=== PATIENT | male | born 1950 | race Caucasian/White ===

== ENCOUNTER → 2021-01-24 | Outpatient (CLI) | payer MEDICARE | END | disposition home or self-care (01) | LOC: LABPAT 12:28 | PROVIDERS: ATTEND Orthopaedic Surgery | DX: Z01.812 Encounter for preprocedural laboratory examination (principal); M17.11 Unilateral primary osteoarthritis, right knee; Z22.322 Carrier or suspected carrier of Methicillin resistant Staphylococcus aureus | CPT/HCPCS: 87070 ==

== ENCOUNTER 2021-02-20 10:28 | Day surgery (SDC) | payer MEDICARE ==
[2021-02-17 08:57] VITALS: BMI 35.2
--- NOTE | 2021-02-19 12:13 | HP ---
HISTORY AND PHYSICAL REASON FOR ADMISSION: Surgery scheduled for 02/20/2021 HISTORY OF PRESENT ILLNESS: Reza Mehta is a 70-year-old gentleman seen with symptomatic right knee osteoarthritis, failing conservative treatment modalities. He elected to proceed with right total knee arthroplasty. Consent was obtained. Medical clearance provided by Dr. Schmitz. Cardiac clearance by Dr. Lopes. PAST MEDICAL HISTORY: Hypertension, hyperlipidemia, cardiovascular disease. PAST SURGICAL HISTORY: Noncontributory. MEDICATIONS: Atorvastatin, Lasix, losartan, Lovenox, metoprolol, Coumadin. ALLERGIES: NONE. SOCIAL HISTORY: Denies tobacco use. PHYSICAL EVALUATION OF THE RIGHT KNEE: Range of motion is -7/8-85 degrees. Tenderness along the medial and lateral joint lines. Crepitus medial patellofemoral compartments with range of motion. Pain with patellofemoral compression. Ligaments stable. Hip rotation without pain. Distal neurovascular exam is intact. RADIOGRAPHS: Radiographs of the right knee reveal severe osteoarthritic changes. IMPRESSION: 1. Right knee osteoarthritis. 2. Hypertension. 3. Hyperlipidemia. 4. Cardiovascular disease. PLAN: Right total knee arthroplasty. Surgery scheduled for 02/20/2021. MMODL / IJN: [id number] /
[~2021-02-20 10:28] MED LIST: ACETAMINOPHEN TAB 500 MG TAB PO PRN; MELOXICAM 7.5 MG TAB PO PRN; MIDAZOLAM 2 MG/2 ML VIAL IV PRN; TRANEXAMIC ACID 1,000 MG in SODIUM CHLORIDE 0.9% 100 ML IVPB PRN
[2021-02-20] MEDS: LACTATED RINGERS 1,000 ML IV SCH ×2 (11:24→12:51)
[2021-02-20] MEDS: ONDANSETRON 4 MG/2 ML VIAL IVP ONE ×2 (11:28→22:35)
[2021-02-20] MEDS: DEXAMETHASONE SOD PHOSPHATE 4 MG/ML 1 ML VIAL IV ONE ×2 (11:28→22:35)
[2021-02-20 11:35] LABS: Basophils % (A) 0 %; Eosinophils # (A) 0.1 k/uL (0-0.7); Eosinophils % (A) 1 %; HCT 32.8 % (39.0-53.0); HGB 11.1 gm/dL (13.0-17.5); Lymphocytes # (A) 1.4 k/uL (1.0-4.8); Lymphocytes % (A) 16 %; MCH 31.4 pg (25.0-35.0); MCHC 33.8 g/dL (31.0-37.0); MCV 92.9 fL (80.0-100.0); Mean Platelet Volume 7.4; Monocytes # (A) 0.6 k/uL (0-1.0); Monocytes % (A) 6 %; Neutrophils # (A) 6.5 k/uL (1.3-7.7); Neutrophils % (A) 75 %; Platelet Count 321 k/uL (150-450); RBC 3.53 m/uL (4.30-5.90); RDW 14.7 % (11.5-15.5); WBC 8.8 k/uL (3.8-10.6)
[2021-02-20 11:51] LABS: Prothrombin Time 10.5 sec (9.0-12.0)
[2021-02-20] MEDS ORDERED: MIDAZOLAM 2 MG/2 ML VIAL IVP ONE (12:06)
[2021-02-20] MEDS ORDERED: fentaNYL (PF) 50 MCG/ML 2 ML AMP ONE (12:50)
[2021-02-20] MEDS ORDERED: MIDAZOLAM 2 MG/2 ML VIAL ONE (12:50)
[2021-02-20] MEDS ORDERED: PROPOFOL 10 MG/ML 20 ML VIAL IV ONE (12:50)
[2021-02-20] MEDS ORDERED: DEXAMETHASONE SOD PHOSPHATE 4 MG/ML 1 ML VIAL ONE (12:50)
[2021-02-20] MEDS ORDERED: TRANEXAMIC ACID 1,000 MG/10 ML VIAL ONE (12:50)
[2021-02-20] MEDS ORDERED: KETAMINE 10 MG/ML 20 ML VIAL ONE (12:50)
[2021-02-20] MEDS ORDERED: ROPIVACAINE 5 MG/ML 30 ML VIAL ONE (12:50)
[2021-02-20] MEDS ORDERED: SODIUM CHLORIDE 0.9% 100 ML BAG ONE (12:50)
--- NOTE | 2021-02-20 12:51 | P.ANPRN ---
Procedure Note - Anesthesia - Nerve Block Performed Right Adductor Canal Infusion Time Out Performed: Yes Date of Procedure: 02/20/21 Procedure Start Time: 12:05 Procedure Stop Time: 12:18 Location of Patient: PreOp Indication: Acute Post-Operative Pain Sedation Type: Sedate with meaningful contact maintained Preparation: Sterile Prep, Sterile Dressing Position: Supine Catheter: Indwelling Needle Types: Pajunk Needle Gauge: 21 Ultrasound used to visualize needle placement: Yes Ultrasound used to observe medication spread: Yes Blood Aspirated: No Pain Paresthesia on Injection Noted: No Resistance on Injection: Normal Image Stored and Saved: Yes Events: Uneventful and Well Tolerated (ropi .5% 20cc)
--- NOTE | 2021-02-20 12:53 | P.ANPRN ---
Procedure Note - Anesthesia - Nerve Block Performed Right Mikeck Single Time Out Performed: Yes Date of Procedure: 02/20/21 Procedure Start Time: 12:19 Procedure Stop Time: 12:24 Location of Patient: PreOp Indication: Acute Post-Operative Pain, Requested by Surgeon Sedation Type: Sedate with meaningful contact maintained Preparation: Sterile Prep Position: Supine Needle Types: Pajunk Needle Gauge: 21 Ultrasound used to visualize needle placement: Yes Ultrasound used to observe medication spread: Yes Blood Aspirated: No Pain Paresthesia on Injection Noted: No Resistance on Injection: Normal Image Stored and Saved: Yes Events: Uneventful and Well Tolerated (ropi .5% 25cc plus dexamethASONE 4MG)
[2021-02-20] MEDS ORDERED: ceFAZolin 1,000 MG in SODIUM CHLORIDE 0.9% 1,000 ML IRRIGATION ONE (13:28)
[2021-02-20] MEDS ORDERED: LACTATED RINGERS 1,000 ML IV ONE ×2 (14:02→17:56)
[2021-02-20] MEDS ORDERED: traMADol 50 MG TAB PO PRN (14:45)
[2021-02-20] MEDS ORDERED: HYDROmorphone 0.5 MG/0.5 ML SYRINGE IVP PRN (14:45)
[2021-02-20] MEDS ORDERED: HYDROcodone/APAP 5-325MG 1 EACH TAB PO PRN (14:45)
[2021-02-20] MEDS ORDERED: HYDROmorphone 0.2 MG/1 ML SYRINGE IVP PRN (14:45)
[2021-02-20] MEDS ORDERED: HYDROmorphone 1 MG/ML 1 ML SYRINGE IVP PRN (14:45)
[2021-02-20] MEDS ORDERED: ONDANSETRON 4 MG/2 ML VIAL IVP PRN (14:45)
[2021-02-20] MEDS ORDERED: NALOXONE 0.4 MG/ML 1 ML VIAL IV PRN (14:45)
--- NOTE | 2021-02-20 14:45 | P.OP ---
Date of Procedure: 02/20/21 Preoperative Diagnosis: Right knee osteoarthritis Postoperative Diagnosis: Right knee osteoarthritis Procedure(s) Performed: Right total knee arthroplasty Implants: 1. Depuy attune size 9 cruciate retaining cemented femur 2. Depuy attune size 9 fixed bearing cemented tibial baseplate 3. Deuy attune size 9 fixed bearing cruciate retaining 8 millimeter polyethylene tibial insert 4. Depuy attune 41 mm all polyethylene cemented patella Anesthesia: regional (Adductor canal catheter, Ipack block), spinal Surgeon: Romulo Arora Gis Professor #1: Marcus King Estimated Blood Loss (ml): 45 Pathology: other (Bone) Condition: stable Disposition: PACU Indications for Procedure: 70-year-old patient seen with symptomatic right knee osteoarthritis. After treatment options were discussed, he elected to proceed with total knee ar throplasty. Operative Findings: See description of procedure Description of Procedure: Patient was taken to the operative suite after having an adductor canal catheter placed by the department of anesthesia as well as an ipack block for postoperative pain management Patient underwent a spinal anesthetic by the department of anesthesia. Patient was given preoperative IV intake antibiotics and TXA. A well-padded tourniquet was placed about the right lower extremity. The lower extremity was then prepped and draped in the normal sterile orthopedic fashion. The extremity was elevated, a tourniquet was insufflated to 300. A standard anterior incision was made sharply through skin. Dissection was taken down through the subcutaneous soft tissues down to the extensor mechanism. A medial arthrotomy was performed, patella was everted and knee was flexed. There was advanced osteoarthritis noted. I introduced my distal intramedullary fem oral drill. I then introduced the distal femoral cutting jig. Marcus GUZMAN secured the cutting jig with 2 pins. I held retractors in position while Marcus GUZMAN performed the distal femoral resection through the guide area we now removed her distal femoral cutting guide. We now placed our 4-in-1 femoral cutting block and positioned and it was secured with 2 pins by Marcus GUZMAN while I held the block in position. The distal femoral finishing was now completed. A proximal tibial cutting guide was positioned. I held the guide in the appropriate position with both hands well Marcus GUZMAN inserted stabilizing pins into the guide. Proximal tibial cut was made. We now placed a trial femoral component into position, along with an appropriate size tibial tray and insert. We now took the knee through range of motion and had full extension good flexion and good overall soft tissue balance noted. The patella was everted and stabilized with 2 towel clips held by Marcus GUZMAN while I performed a flush with patellar quad tendon utilizing a fresh sawblade. We templated the patella, appropriate drill holes were made. An appropriate trial patella was positioned, knee was taken through full range of motion with the patella tracking very nicely. The trial patella was removed. Drill holes were made through the femoral component. All trial components were removed after marking off the appropriate rotation of the tibia. Retractors were now positioned along the proximal tibia. An appropriate keel punch was made with the appropriate size tibial guide by myself while Marcus GUZMAN assisted by holding retractors. At this point appropriate size implants were chosen and opened. The joint was irrigated copiously with pulse lavage mechanical irrigation. The posterior capsule was infiltrated with local analgesic. The wound was irrigated with pulse lavage mechanical irrigation. We mixed antibiotic methylmethacrylate. We placed the knee into flexion. We placed mul tiple retractors assisted by Marcus GUZMAN to expose the proximal tibia. Once the methyl methacrylate was ready, the tibial component was cemented into place removing any excess methylmethacrylate form by both myself and Marcus GUZMAN. The femoral component was cemented into place removing the removing any excess methylmethacrylate performed by both myself and Marcus GUZMAN. We then inserted the appropriate size polyethylene tibial insert. We made sure that it was locked into position. We took the knee into full extension, and then back in a flexion making sure we had removed any excess methylmethacrylate. The patellar component was then cemented down and secured with clamp. Excess methylmethacrylate removed. We kept the knee in full extension, patellar clamp in position until methylmethacrylate had hardened. Once it had hardened the patellar clamp was removed. The knee was taken through full range of motion. The patella tracked nicely. There was good soft tissue balancing. The tourniquet was now released. Additional hemostasis was achieved via electrocautery. A second gram of TXA was given. The wound again was irrigated with pulse lavage mechanical irrigation. The superficial soft tissues were infiltrated local analgesic. The extensor mechanism was repaired with Vicryl. We checked the repair with range of motion and it was stable. The subcutaneous soft tissues were repaired with Vicryl in layers. The skin was approximated with pernio/Dermabond. Sterile dressings were applied followed by loose web roll and Mikael bandage. The patient was transferred to a bed, and taken to recovery in stable and satisfactory condition. Marcus GUZMAN assisted with this complex procedure.
[2021-02-20] MEDS ORDERED: ROPIVACAINE 0.2%-NS ON-Q PUMP 2 MG/ML EACH MISCELLANE ONE (15:30)
--- NOTE | 2021-02-20 15:35 | XR ---
EXAMINATION TYPE: XR knee limited RT DATE OF EXAM: 02/20/2021 COMPARISON: None HISTORY: Postop alignment TECHNIQUE: 2 view right knee FINDINGS: Tibial and femoral components of an place. Soft tissue postsurgical changes are evident. No acute fractures or dislocations are evident. IMPRESSION: 1. No acute fractures post knee replacement
[2021-02-20] MEDS ORDERED: KETOROLAC 15 MG/ML 1 ML VIAL ONE (16:07)
[2021-02-20] MEDS ORDERED: KETOROLAC 15 MG/ML 1 ML VIAL IVP ONE ×2 (16:12)
[2021-02-20] MEDS: HYDROmorphone 0.5 MG/0.5 ML SYRINGE IVP PRN ×3 (16:15→18:15)
[2021-02-20] MEDS ORDERED: ROPIVACAINE 0.2%-NS ON-Q PUMP 1,090 MG, EMPTY PAIN BALL 1 EACH MISCELLANE PRN (17:24)
[2021-02-20] MEDS ORDERED: SODIUM CHLORIDE 0.9% 1,000 ML IV ONE (17:56)
[2021-02-20] MEDS ORDERED: WARFARIN 7.5 MG TAB PO ONE (21:00)
[2021-02-20] MEDS ORDERED: SENNOSIDES-DOCUSATE SODIUM 1 EACH TAB PO SCH (21:00)
[2021-02-20] MEDS ORDERED: ATORVASTATIN 40 MG TAB PO SCH (21:30)
[2021-02-20] MEDS: FLUTICASONE 50MCG/SPRAY NASAL 16GM EA NOSTRIL SCH (22:45)
[2021-02-21] MEDS: HYDROcodone/APAP 7.5-325MG 1 EACH TAB PO PRN ×3 (00:28→13:04)
[2021-02-21 01:52] VITALS: RESP 16
--- NOTE | 2021-02-21 02:59 | P.CONS ---
History of Present Illness - Reason for Consult Consult date: 02/20/21 Medical evaluation Requesting physician: Romulo Arora - Chief Complaint Right total knee arthroplasty - History of Present Illness 70-year-old male with hypertension, hyperlipidemia, valvular heart disease Patient comes in for scheduled right total knee arthroplasty tolerated procedure well patient seen in the immediate postoperative period he denies any chest pain trouble breathing, he tolerated procedure well, he tolerated by mouth intake denies any nausea vomiting. Pain is well controlled Review of Systems Pertinent positives as noted in HPI. 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 COLONOSCOPY Past Anesthesia/Blood Transfusion Reactions: No Reported Reaction Smoking Status: Former smoker - Past Family History Mother History Unknown: Yes Additional Family Medical History / Comment(s): MOM'S HX UNKNOWN Medications and Allergies Home Medications Medication Instructions Recorded Confirmed Type Atorvastatin [Lipitor] 40 mg PO HS 02/17/21 02/20/21 History Fexofenadine HCl 180 mg PO DAILY 02/17/21 02/20/21 History Fluticasone Nasal [place] [Flonase 2 spray EA NOSTRIL DAILY 02/17/21 02/20/21 History Nasal [place]] Furosemide [Lasix] 20 mg PO DAILY 02/17/21 02/20/21 History Losartan [Cozaar] 25 mg PO DAILY 02/17/21 02/20/21 History Metoprolol Succinate (ER) [Toprol 25 mg PO DAILY 02/17/21 02/20/21 History Xl] Warfarin [Coumadin] 5 mg PO SUTUWETHSA 02/17/21 02/20/21 History Warfarin [Coumadin] 7.5 mg PO MOFR 02/17/21 02/20/21 History Allergies Allergy/AdvReac Type Severity Reaction Status Date / Time No Known Allergies Allergy Verified 02/20/21 11:02 Physical Exam Vitals: Vital Signs Temp Pulse Resp BP Pulse Ox 02/20/21 19:10 98.3 F 78 16 112/53 97 02/20/21 18:20 78 16 109/52 95 02/20/21 17:51 83 16 116/62 96 02/20/21 17:15 65 16 126/72 97 02/20/21 16:45 67 16 126/60 85 L 02/20/21 16:15 64 17 127/59 97 02/20/21 16:00 60 16 117/56 97 02/20/21 15:45 60 16 115/59 96 02/20/21 15:30 59 L 18 116/59 95 02/20/21 15:15 62 16 119/56 97 02/20/21 15:00 98.3 F 66 16 114/55 99 02/20/21 12:30 83 18 126/61 96 02/20/21 11:18 97.8 F 87 18 156/68 96 Intake and Output 02/20/21 02/20/21 02/20/21 06:59 14:59 22:59 Intake Total 1651 400 Output Total 45 Balance 1606 400 Intake: IV 1651 400 Output: Estimated Blood Loss 45 Other: Weight 115.1 kg 115.1 kg Constitutional: No acute distress, conversant, pleasant Eyes: Anicteric sclerae, moist conjunctiva, Pupils equal round reactive to light ENMT: NC/AT Oropharynx clear, no erythema, or exudates Neck: Supple, FROM, no masses, or JVD No carotid bruits No thyromegaly Lungs: Clear to auscultation Clear to percussion Normal respiratory effort, no accessory muscle use Cardiovascular: Heart regular in rate and rhythm, Systolic murmurs, no gallops, or rubs No peripheral edema Abdominal: Soft Nontender, no guarding, rebound or rigidity Abdomen moving with respiration Normoactive bowel sounds No hepatomegaly, No splenomegaly No palpable mass No abdominal wall hernia noted Skin: Normal temperature, tone, texture, turgor No induration No subcutaneous nodules No rash, lesions No ulcers Extremities: No digital cyanosis No clubbing Pedal pulses intact and symmetrical Radial pulses intact and symmetrical No calf tenderness Psychiatric: Alert and oriented to person, place and time Appropriate affect fair judgement Neuro Muscles Strength 5/5 in bilateral upper extremities and bilateral lower extremities except for limited exam over the hip and knee over the right lower extremity due to recent surgery Sensation to light touch grossly present throughout Cranial nerves II-XII grossly intact No focal sensory deficits Lymphatics: no palpable cervical or supraclavicular , or inguinal lymph nodes Results CBC & Chem 7: 02/20/21 11:24 Labs: Abnormal Lab Results - Last 24 Hours (Table) 02/20/21 Range/Units 11:24 RBC 3.53 L (4.30-5.90) m/uL Hgb 11.1 L (13.0-17.5) gm/dL Hct 32.8 L (39.0-53.0) % Assessment and Plan Assessment: Right total knee arthroplasty postoperative day 0 DVT prophylaxis and pain control per orthopedic Hypertension resume losartan and metoprolol Valvular heart disease Patient had cardiac clearance prior surgery Continue to follow up outpatient with cardiology Follow-up CBC and BMP in the morning Patient is full code Monitor vital signs Thank you for allowing us to participate in the care of this patient. Do not hesitate to contact us with questions. Someone can be reached from the [facility] hospitalist group at all hours of the day at [phone].
[2021-02-21] MEDS: LACTATED RINGERS 1,000 ML IV SCH ×3 (05:02→12:03)
[2021-02-21 06:44] LABS: INR 1.1 (<1.2); Prothrombin Time 11.6 sec (9.0-12.0)
--- NOTE | 2021-02-21 06:54 | P.PN ---
Progress Note - Text Progress Note Date: 02/21/21 Postoperative day # 1 status post total knee arthroplasty, and adductor canal catheter placed for postoperative analgesia, currently at ropivacaine 0.2% 8 mL per hour and continuous infusion, visual analogue scale is 4/10, patient using oral pain medication for breakthrough pain. Assessment and plan= Acute postoperative pain, adductor canal catheter for pain control, pain is well controlled we'll continue the same management.
[2021-02-21 07:20] LABS: African American GFR (CKD) >90 (>60 ml/min/1.73 sqM); Anion Gap 4 mmol/L; Blood Urea Nitrogen 18 mg/dL (9-20); Calcium 8.5 mg/dL (8.4-10.2); Carbon Dioxide 26 mmol/L (22-30); Chloride 104 mmol/L (98-107); Glucose 117 mg/dL (74-99); Non-African American GFR(CKD) 83 (>60 ml/min/1.73 sqM); Potassium 4.3 mmol/L (3.5-5.1); Sodium 134 mmol/L (137-145)
[2021-02-21 07:43] LABS: Basophils % (A) 0 %; Eosinophils % (A) 0 %; HCT 29.2 % (39.0-53.0); HGB 9.7 gm/dL (13.0-17.5); Lymphocytes # (A) 1.2 k/uL (1.0-4.8); Lymphocytes % (A) 9 %; MCH 31.2 pg (25.0-35.0); MCHC 33.3 g/dL (31.0-37.0); MCV 93.8 fL (80.0-100.0); Monocytes # (A) 1.1 k/uL (0-1.0); Monocytes % (A) 8 %; Neutrophils % (A) 82 %; Platelet Count 298 k/uL (150-450); RBC 3.11 m/uL (4.30-5.90); RDW 15.2 % (11.5-15.5); WBC 13.5 k/uL (3.8-10.6)
[2021-02-21 08:56] VITALS: PULSE 75; TEMP 98.3
[2021-02-21] MEDS ORDERED: LOSARTAN 25 MG TAB PO SCH (09:00)
[2021-02-21] MEDS ORDERED: FUROSEMIDE 20 MG TAB PO SCH (09:00)
[2021-02-21] MEDS ORDERED: ENOXAPARIN 30 MG/0.3 ML SYRINGE SQ SCH (09:00)
[2021-02-21] MEDS ORDERED: METOPROLOL SUCCINATE (ER) 25 MG TAB.ER.24H PO SCH (09:00)
[2021-02-21] MEDS ORDERED: LORATADINE 10 MG TAB PO SCH (09:00)
[2021-02-21] MEDS: FLUTICASONE 50MCG/SPRAY NASAL 16GM EA NOSTRIL SCH (10:11)
--- NOTE | 2021-02-21 10:18 | P.PN ---
<Nixon Cunningham - Last Filed: 02/21/21 16:45> Subjective Progress Note Date: 02/21/21 Hospital course: Patient is a 70-year-old male with a past medical history of hypertension, hyperlipidemia, valvular heart disease, previous CVA, bilateral cataracts resulting in lens implants, and osteoarthritis. Patient currently admitted under orthopedic surgery team with Dr. Arora status post total right knee arthroplasty.. We have been consulted for continued medical management throughout patient's hospitalization. Physical exam: Patient was seen and fully evaluated at bedside this morning. Patient was sitting up in chair and reports ambulating in room without any difficulties. Patient tolerating oral intake and denies having any postoperative nausea or vomiting. Patient reports postoperative pain is controlled and denies having any further needs at this time. Vital signs reviewed and stable. General: Nontoxic, no distress and appears stated age. Derm: Skin warm and dry, normal coloration for ethnicity. Dressing in place to right knee, it is clean dry and intact with no signs of bleeding or drainage. Head: Atraumatic, normocephalic and symmetric. Eyes: EOMs intact, no lid lag, and anicteric sclera Mouth: no lip lesions, mucus membranes moist Cardiovascular: regular rate and rhythm with normal S1S2, grade 3 systolic murmur, positive posterior tibial pulses bilaterally, and cap refill < 2 seconds. Lungs: Respirations even, regular, and unlabored on room air. Lungs CTA ryan aterally, no rhonchi, no rales, no wheezing, and no accessory muscle usage. Abdominal: soft, nontender to palpation, no guarding, no appreciable organomegaly Ext: ROM intact. No gross muscle atrophy, no edema, no contractures Neuro: Speech clear, face symmetrical and CN II-XII grossly intact with no noted focal neuro deficits Psych: Alert and oriented to person, place, time, and situation. Appropriate and pleasant affect. Assessment and Plan of Care: Status post total right knee arthroplasty postoperative day one Pain management, DVT prophylaxis, pain control, weightbearing, PT/OT per qing garcia admitting orthopedic surgery team. DVT prophylaxis to resume Coumadin Hypertension Monitor vital signs and continue daily medication regimen with metoprolol and losartan Hyperlipidemia Continue daily medication regimen with atorvastatin 40 mg nightly Acute anemia secondary to expected postoperative blood loss Stable with hemoglobin of 9.7. Thank you for allowing us to participate in the care of this pleasant patient. Do not hesitate to contact us with questions. Someone can be reached from the [facility] hospitalist group all hours of the day at [phone] or via perfect serve. Objective - Vital Signs Vital signs: Vital Signs Temp 98.3 F 02/21/21 08:00 Pulse 75 02/21/21 08:00 Resp 16 02/21/21 08:00 BP 123/64 02/21/21 08:00 Pulse Ox 97 02/21/21 08:00 Intake & Output 02/20/21 02/21/21 02/21/21 18:59 06:59 18:59 Intake Total 2050 Output Total 45 Balance 2005 Weight 115.1 kg 115.1 kg Intake: IV 2050 Output: Estimated Blood Loss 45 Other: Voiding Method Toilet Toilet # Voids 2 - Labs CBC & Chem 7: 02/21/21 05:47 02/21/21 05:47 Labs: Abnormal Lab Results - Last 24 Hours (Table) 02/20/21 02/21/21 02/21/21 Range/Units 11:24 05:47 05:47 WBC 13.5 H (3.8-10.6) k/uL RBC 3.53 L 3.11 L (4.30-5.90) m/uL Hgb 11.1 L 9.7 L (13.0-17.5) gm/dL Hct 32.8 L 29.2 L (39.0-53.0) % Neutrophils # 11.0 H (1.3-7.7) k/uL Monocytes # 1.1 H (0-1.0) k/uL Sodium 134 L (137-145) mmol/L Glucose 117 H (74-99) mg/dL <Sonam Rocha - Last Filed: 02/21/21 18:38> Subjective I reviewed the documentation as provided by the HIWOT above, who is the original author of this note. I agree with the documented assessment and plan, with the following changes: None Objective - Vital Signs Vital signs: Vital Signs Temp 98.3 F 02/21/21 08:00 Pulse 75 02/21/21 08:00 Resp 16 02/21/21 08:00 BP 104/61 02/21/21 12:03 Pulse Ox 97 02/21/21 08:00 Intake & Output 02/20/21 02/21/21 02/21/21 18:59 06:59 18:59 Intake Total 2050 Output Total 45 Balance 2005 Weight 115.1 kg 115.1 kg Intake: IV 2050 Output: Estimated Blood Loss 45 Other: Voiding Method Toilet Toilet # Voids 2 - Labs CBC & Chem 7: 02/21/21 05:47 02/21/21 05:47 Labs: Abnormal Lab Results - Last 24 Hours (Table) 02/21/21 02/21/21 Range/Units 05:47 05:47 WBC 13.5 H (3.8-10.6) k/uL RBC 3.11 L (4.30-5.90) m/uL Hgb 9.7 L (13.0-17.5) gm/dL Hct 29.2 L (39.0-53.0) % Neutrophils # 11.0 H (1.3-7.7) k/uL Monocytes # 1.1 H (0-1.0) k/uL Sodium 134 L (137-145) mmol/L Glucose 117 H (74-99) mg/dL
--- NOTE | 2021-02-21 10:59 | P.PN ---
Subjective Progress Note Date: 02/21/21 Principal diagnosis: Status post right total knee arthroplasty Patient is doing very well, his pain is well-controlled. Patient is doing very well with physical therapy, he is continuing to improve. Patient currently denies any headaches, lightheadedness, chest pain or shortness of breath. Objective - Vital Signs Vital signs: Vital Signs Temp 98.3 F 02/21/21 08:00 Pulse 75 02/21/21 08:00 Resp 16 02/21/21 08:00 BP 123/64 02/21/21 08:00 Pulse Ox 97 02/21/21 08:00 Intake & Output 02/20/21 02/21/21 02/21/21 18:59 06:59 18:59 Intake Total 2050 Output Total 45 Balance 2005 Weight 115.1 kg 115.1 kg Intake: IV 2050 Output: Estimated Blood Loss 45 Other: Voiding Method Toilet Toilet # Voids 2 - Exam Right lower extremity: Incision is clean, dry, and intact. The exofin fusion tape is in good condition. There is minimal soft tissue swelling and ecchymosis surrounding the medial and lateral aspects of the incision. Calf is soft, no tenderness with palpation. Plantar flexion, dorsiflexion, EHL, FHL are intact. Sensory exam to light touch throughout the extremity is intact, dorsal pedis pulses 2+. - Labs CBC & Chem 7: 02/21/21 05:47 02/21/21 05:47 Labs: Abnormal Lab Results - Last 24 Hours (Table) 02/20/21 02/21/21 02/21/21 Range/Units 11:24 05:47 05:47 WBC 13.5 H (3.8-10.6) k/uL RBC 3.53 L 3.11 L (4.30-5.90) m/uL Hgb 11.1 L 9.7 L (13.0-17.5) gm/dL Hct 32.8 L 29.2 L (39.0-53.0) % Neutrophils # 11.0 H (1.3-7.7) k/uL Monocytes # 1.1 H (0-1.0) k/uL Sodium 134 L (137-145) mmol/L Glucose 117 H (74-99) mg/dL Assessment and Plan Assessment: Postoperative day #1 status post right total knee arthroplasty Plan: Pain control, plan for discharge home on [place] and a tapering dose of Lyrica GI and DVT prophylaxis, he will resume is normally prescribed Coumadin, Lovenox also be used to bridge. Patient does take his own INR is at home, I advised that he do this on Saturday. He may discontinue the Lovenox when the INR is between 23. Wound care instructions were discussed, this to include showering instructions Icing and elevating techniques discuss Encourage incentive spirometer Medical recommendations Discharge planning: Patient will be discharged home today Time with Patient: Less than 30
--- NOTE | 2021-02-21 11:05 | P.DS ---
Providers Date of admission: 02/20/2021 Expected date of discharge: 02/21/21 Attending physician: Romulo Arora Consults: 02/20/21 14:45 Consult Physician Routine Consulting Provider: Patrizia Verma Consult Reason/Comments: Medical management Do you want consulting provider notified?: Yes Primary care physician: Zoraida Schmitz [facility] Course: Date of admission: 02/20/2021 Date of discharge: 02/21/2021 Admission diagnosis: Status post right total knee arthroplasty Discharge diagnosis: Same Attending physician: Dr. Arora Surgical procedures: Right total knee arthroplasty Brief history: Patient is a 70-year-old male with a history of progressive primary right knee osteoarthritis. At this point patient has failed conservative treatment measures and has opted to proceed with a elective right total knee arthroplasty. Hospital course: Details of patient's surgery can be found in operative report. Patient tolerated the procedure well and was subsequently transported to orthopedic floor. Patient's orthopeidc and medical care was provided daily. Patient had daily laboratory tests performed for evaluation of overall blood counts. Patient had daily physical therapy to include strengthening range of motion as well as education with walker ambulation. Patient was treated with Lovenox for their postoperative DVT prophylaxis during their inpatient stay. Patient was noted to have a relatively uneventful postoperative course. Patient reported satisfactory pain control with oral pain medications by postoperative day 0. Patient showed satisfactory progress with physical therapy. Patient moved steadily through the program and had no difficulty meeting the goals by postoperative day 1. Given patient's otherwise satisfactory course and having met physical therapy goals, plan is to discharge patient home on postoperative day 1. Discharge condition/disposition: Patient will be discharged home in stable condition. Discharge medications: Instructions are given on resumption of patient's normal daily medications per primary care recommendation, in addition patient will be prescribed [place] 7.5 mg/325 mg, Lyrica 75 mg, Colace 100 mg, Lovenox 30 mg Discharge instructions: 1. Wound care and infection precautions, keep incision dry and covered while showering, no lotions, creams, moisturizers. No soaking, tubs, pools, hottubs. Do not scrub over the incision. 2. Weight-bear as tolerated with walker / cane until follow-up. 3. Ice and elevate when necessary. Do not exceed 20 minutes per hour with ice pack. 4. Utilize compression sleeve until seen at first follow up appointment. 5. Visiting nursing care. 6. Home physical therapy including home CPM. 7. Pain meds and anticoagulants per prescription. 8. Pain medication has potential to cause constipation. Increase oral fluid and fiber intake. Contact primary care provider if you have not had a bowel movement within 48 hours after discharge 9. No anti-inflammatory medication until discussed at first post operative visit, this including Motrin, Aleve, Mobic, Diclofenac, [Aspirin]. 10. Follow up in office at 2 weeks postop with Greg Zepeda PA-C/Marcus Ramirez 11. Follow up with your primary care doctor 7-10 days after discharge. 12. Contact [facility] with any questions, . Procedures: Right total knee arthroplasty Patient Condition at Discharge: Good Plan - Discharge Summary Discharge Rx Participant: No New Discharge Prescriptions: New Docusate [Colace] 100 mg PO DAILY #30 cap Enoxaparin [Lovenox] 30 mg SQ DAILY #7 each HYDROcodone/APAP 7.5-325MG [[place] 7.5] 1 each PO Q6HR PRN #28 tab PRN Reason: Pain Pregabalin [Lyrica] 75 mg PO BID 14 Days #21 cap Continue Furosemide [Lasix] 20 mg PO DAILY Metoprolol Succinate (ER) [Toprol XL] 25 mg PO DAILY Warfarin [Coumadin] 7.5 mg PO MOFR Warfarin [Coumadin] 5 mg PO SUTUWETHSA Fluticasone Nasal [place] [Flonase Nasal [place]] 2 spray EA NOSTRIL DAILY Losartan [Cozaar] 25 mg PO DAILY Atorvastatin [Lipitor] 40 mg PO HS Fexofenadine HCl 180 mg PO DAILY Discharge Medication List Atorvastatin [Lipitor] 40 mg PO HS 02/17/21 [History] Fexofenadine HCl 180 mg PO DAILY 02/17/21 [History] Fluticasone Nasal [place] [Flonase Nasal [place]] 2 spray EA NOSTRIL DAILY 02/17/21 [History] Furosemide [Lasix] 20 mg PO DAILY 02/17/21 [History] Losartan [Cozaar] 25 mg PO DAILY 02/17/21 [History] Metoprolol Succinate (ER) [Toprol XL] 25 mg PO DAILY 02/17/21 [History] Warfarin [Coumadin] 5 mg PO SUTUWETHSA 02/17/21 [History] Warfarin [Coumadin] 7.5 mg PO MOFR 02/17/21 [History] Docusate [Colace] 100 mg PO DAILY #30 cap 02/21/21 [Rx] Enoxaparin [Lovenox] 30 mg SQ DAILY #7 each 02/21/21 [Rx] HYDROcodone/APAP 7.5-325MG [[place] 7.5] 1 each PO Q6HR PRN #28 tab 02/21/21 [Rx] Pregabalin [Lyrica] 75 mg PO BID 14 Days #21 cap 02/21/21 [Rx] Follow up Appointment(s)/Referral(s): [facility],Equipment [NON-STAFF] - (*Please call [facility] once home to arrange delivery of your Continuous Passive Motion (CPM) machine. ) Zachary Zepeda, PAC [PHYSICIAN KILN PUSHER] - 03/10/21 8:20 am Care,[facility] [NON-STAFF] - ([facility] Care will you to schedule your first visit for 02/22/21.) Zoraida Schmitz MD [Primary Care Provider] - 03/22/21 10:40 am Patient Instructions/Handouts: *Surgery [facility] - On-Q Pain Pump Discharge Instructions, How to Use an Incentive Spirometer (DC), Joint Replacement Surgery (DC) Activity/Diet/Wound Care/Special Instructions: Orthopedic Discharge Instructions: 1. Wound care and infection precautions, keep incision dry and covered while showering, no lotions, creams, moisturizers. No soaking, pools, hot tubs. Do not scrub over incision. 2. Weight-bear as tolerated with walker / cane until follow-up. 3. Ice and elevate when necessary. Do not exceed 20 minutes per hour with ice pack. 4. Utilize compression sleeve until seen at first follow up appointment. 5. Pain meds and anticoagulants per prescription. 6. Pain medication has potential to cause constipation. Increase oral fluid and fiber intake. Contact primary care provider if you have not had a bowel movement within 48 hours after discharge. 7. No anti-inflammatory medication until discussed at first post operative visit, this including Motrin, Aleve, Mobic, Diclofenac. 8. Follow up in office at 2 weeks postop with Greg Zepeda PA-C/Marcus King PA-C 9. Follow up with your primary care doctor 7-10 days after discharge. 10. Contact [facility] with any questions, . Wound care instructions: 1. Okay to remove foam dressing on 02/27/2021 2. Keep incision covered and dry while showering 3. Weight to shower until pain catheter is removed on 02/23/2021 DVT prophylaxis: 1. Utilize Lovenox and regular scheduled Coumadin until INR is between 23 2. Check INR on 02/24/2021 Discharge Disposition: HOME WITH HOME HEALTH SERVICES
[2021-02-21 12:04] VITALS: BP 104/61
[2021-02-21] MEDS ORDERED: WARFARIN 7.5 MG TAB PO ONE (18:00)
== END 2021-02-21 13:12 | disposition home health service (06) ==
LOC: OR 10:28 → 4SSUR 14:31 → OR 02-21 13:12
PROVIDERS: ATTEND Orthopaedic Surgery
DX: M17.11 Unilateral primary osteoarthritis, right knee (principal); I10 Essential (primary) hypertension; E78.5 Hyperlipidemia, unspecified; I69.398 Other sequelae of cerebral infarction; I48.0 Paroxysmal atrial fibrillation; I25.10 Atherosclerotic heart disease of native coronary artery without angina pectoris; Z20.822 Contact with and (suspected) exposure to COVID-19; R01.1 Cardiac murmur, unspecified; I35.1 Nonrheumatic aortic (valve) insufficiency; Z87.891 Personal history of nicotine dependence; Z98.890 Other specified postprocedural states; Z98.42 Cataract extraction status, left eye; Z98.41 Cataract extraction status, right eye; Z96.1 Presence of intraocular lens; Z79.01 Long term (current) use of anticoagulants; Z79.02 Long term (current) use of antithrombotics/antiplatelets; Z79.899 Other long term (current) drug therapy
CPT/HCPCS: 97161; 64999; 64448; 76942; 80048; 85025 ×2; 85610 ×2; 85730; 88300; 87635; 73560; 27447; C1776; C1713 ×2; J2250; J1100; J0690 ×3; J2405; J3010; J1650; J2795 ×2; J1885; J2704; J1170

== ENCOUNTER → 2021-02-22 | Outpatient (CLI) | payer MEDICARE ==
--- NOTE | 2021-02-22 16:12 | US ---
EXAMINATION TYPE: US venous doppler duplex LE RT DATE OF EXAM: 02/22/2021 4:01 PM COMPARISON: NONE CLINICAL HISTORY: R22.41 swelling right lower limb,M79.661 Pain in right lower. Pain & swelling right leg s/p right total knee 2 days ago SIDE PERFORMED: Right TECHNIQUE: The lower extremity deep venous system is examined utilizing real time linear array sonog nellie with graded compression, doppler sonography and color-flow sonography. VESSELS IMAGED: Common Femoral Vein Deep Femoral Vein Greater Saphenous Vein * Femoral Vein Popliteal Vein Small Saphenous Vein * Proximal Calf Veins (* superficial vessels) There is normal flow, compressibility, vascular waveforms. Right Leg: Negative for DVT, edema visualized Results called to Mckayla at 's office at time of exam IMPRESSION: No evident deep venous thrombosis at the level of the knee or central to the knee within the right lower extremity
== END | disposition home or self-care (01) ==
LOC: RADUSWWP 15:46
PROVIDERS: ATTEND Orthopaedic Surgery
DX: R22.41 Localized swelling, mass and lump, right lower limb (principal); M79.661 Pain in right lower leg

== ENCOUNTER 2021-02-24 08:06 | Emergency (ER) | payer MEDICARE ==
[2021-02-24 08:14] VITALS: BP 127/68; PULSE 91; RESP 18; TEMP 99.3
--- NOTE | 2021-02-24 08:45 | ED ---
Skin/Abscess/FB HPI - General Chief complaint: Skin/Abscess/Foreign Body Stated complaint: post op-blisters on leg Time Seen by Provider: 02/24/21 08:16 Source: patient, RN notes reviewed Mode of arrival: wheelchair Limitations: no limitations - History of Present Illness Initial comments: Patient is 70-year-old male presenting to ED for right leg pain. patient states he had right knee replacement surgery on the . Patient expresses discomfort and swelling in the leg is concerned about bulba on lateral and medial surface of leg. Patient states they were seen by ortho on Saturday but both "PA and the " and was sent to ED for ultrasound Doppler to check for clots, reported to have been negative. Patient states pain is 7 out of 10 pain which is normal pain for that affected leg. - Related Data Home Medications Medication Instructions Recorded Confirmed Atorvastatin [Lipitor] 40 mg PO HS 02/17/21 02/20/21 Fexofenadine HCl 180 mg PO DAILY 02/17/21 02/20/21 Fluticasone Nasal [place] [Flonase 2 spray EA NOSTRIL DAILY 02/17/21 02/20/21 Nasal [place]] Furosemide [Lasix] 20 mg PO DAILY 02/17/21 02/20/21 Losartan [Cozaar] 25 mg PO DAILY 02/17/21 02/20/21 Metoprolol Succinate (ER) [Toprol 25 mg PO DAILY 02/17/21 02/20/21 XL] Warfarin [Coumadin] 5 mg PO SUTUWETHSA 02/17/21 02/20/21 Warfarin [Coumadin] 7.5 mg PO MOFR 02/17/21 02/20/21 Previous Rx's Medication Instructions Recorded Docusate [Colace] 100 mg PO DAILY #30 cap 02/21/21 Enoxaparin [Lovenox] 30 mg SQ DAILY #7 each 02/21/21 HYDROcodone/APAP 7.5-325MG [[place] 1 each PO Q6HR PRN #28 tab 02/21/21 7.5] Pregabalin [Lyrica] 75 mg PO BID 14 Days #21 cap 02/21/21 Benzonatate [Tessalon Perles] 200 mg PO Q8HR #30 cap 02/24/21 Cephalexin [Keflex] 500 mg PO Q6HR #40 cap 02/24/21 Allergies Allergy/AdvReac Type Severity Reaction Status Date / Time No Known Allergies Allergy Verified 02/20/21 11:02 Review of Systems ROS Statement: Those systems with pertinent positive or pertinent negative responses have been documented in the HPI. ROS Other: All systems not noted in ROS Statement are negative. 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 COLONOSCOPY Smoking Status: Former smoker Past Alcohol Use History: None Reported Past Drug Use History: None Reported General Exam Limitations: no limitations General appearance: alert, in no apparent distress Respiratory exam: Present: normal lung sounds bilaterally. Absent: respiratory distress, wheezes, rales, rhonchi, stridor Cardiovascular Exam: Present: regular rate, normal rhythm, normal heart sounds. Absent: systolic murmur, diastolic murmur, rubs, gallop, clicks Right Hip exam: Present: normal inspection Upper Leg exam: Present: tenderness, swelling, erythema Knee exam: Present: tenderness (post knee replacement), swelling, erythema Lower Leg exam: Present: tenderness, swelling (bulba on medial and lateral aspect of knee/lowe leg), ecchymosis, erythema Ankle exam: Present: swelling, erythema Foot/Toe exam: Present: normal inspection Neurovascular tendon exam: Present: no vascular compromise Neurological exam: Present: alert, oriented X3 Skin exam: Present: warm, dry, intact, normal color. Absent: rash Course Vital Signs 02/24/21 08:09 Temperature 99.3 F Pulse Rate 91 Respiratory 18 Rate Blood Pressure 127/68 O2 Sat by Pulse 95 Oximetry Medical Decision Making - Medical Decision Making 70-year-old presented from blistering of his leg did discuss case with matilde monsalve on-call for Dr. Arora recommends prophylactic antibiotics follow-up next week continuation of icing, elevation and return for any worsening of symptoms. - Lab Data Lab Results 02/24/21 Range/Units 08:56 PT 13.6 H (9.0-12.0) sec INR 1.3 H (<1.2) Disposition Clinical Impression: Status post total right knee replacement, Leg edema, right, Blister of leg Disposition: HOME SELF-CARE Condition: Stable Instructions (If sedation given, give patient instructions): Leg Edema (ED) Additional Instructions: Please return to the Emergency Department if symptoms worsen or any other concerns. Prescriptions: Cephalexin [Keflex] 500 mg PO Q6HR #40 cap Benzonatate [Tessalon Perles] 200 mg PO Q8HR #30 cap Is patient prescribed a controlled substance at d/c from ED?: No Referrals: Zoraida Schmitz MD [Primary Care Provider] - 1-2 days Time of Disposition: 09:52
[2021-02-24 09:23] LABS: INR 1.3 (<1.2); Prothrombin Time 13.6 sec (9.0-12.0)
== END 2021-02-24 10:23 | disposition home or self-care (01) ==
LOC: EC 08:06
DX: S80.821A Blister (nonthermal), right lower leg, initial encounter (principal); R60.0 Localized edema; Z96.651 Presence of right artificial knee joint; Z86.73 Personal history of transient ischemic attack (TIA), and cerebral infarction without residual deficits; Z87.891 Personal history of nicotine dependence; Z79.01 Long term (current) use of anticoagulants
CPT/HCPCS: 36415; 85610; 99283

== ENCOUNTER 2021-02-27 10:27 | Inpatient (IN) | payer MEDICARE ==
--- NOTE | 2021-02-27 11:57 | ED ---
Extremity Problem HPI - General Source: patient, family, RN notes reviewed, old records reviewed Mode of arrival: ambulatory Limitations: no limitations <Milagro Adler - Last Filed: 02/27/21 19:17> <Kathy Powell - Last Filed: 03/02/21 15:00> - General Chief complaint: Extremity Problem,Nontraumatic Stated complaint: post knee op issues Time Seen by Provider: 02/27/21 11:30 - History of Present Illness Initial comments: Patient is a 70-year-old male presenting to emergency Department with concerns of possible infection in his right knee. Patient is 7 days postop right knee replacement by Dr. Arora. He spent 1 day in the hospital, discharged on Saturday, he had a follow-up with a nurse on Saturday who noticed 2 large blisters on his leg. He did go to his surgeon's office the following day, the examined him, did a Doppler on his foot, he had good blood flow and then was sent home. Patient returns to the ER 3 days ago, he was started on Keflex for possible infection and was told to follow-up with his surgeon this week. Patient woke up this morning, his leg has been oozing tremendously over the past 1-2 days. He states the blisters also larger and he is concerned. The visiting nurse also told him he should go back into the ER today. He denies any fevers or chills, no nausea or vomiting. He states his pain has been well controlled. Been trying to use his at-home therapy machine however it's been harder with all the bruising and the swelling. Patient does take Coumadin secondary to CVA. He has no further complaints. (Milagro Adler) - Related Data Home Medications Medication Instructions Recorded Confirmed Atorvastatin [Lipitor] 40 mg PO HS 02/17/21 02/27/21 Fexofenadine HCl 180 mg PO DAILY 02/17/21 02/27/21 Fluticasone Nasal [place] [Flonase 2 spray EA NOSTRIL DAILY PRN 02/17/21 02/27/21 Nasal [place]] Furosemide [Lasix] 20 mg PO DAILY 02/17/21 02/27/21 Losartan [Cozaar] 25 mg PO DAILY 02/17/21 02/27/21 Metoprolol Succinate (ER) [Toprol 25 mg PO DAILY 02/17/21 02/27/21 XL] Benzonatate [Tessalon Perles] 200 mg PO Q8HR PRN 02/27/21 02/27/21 Ferrous Sulfate [Iron (65 MG 325 mg PO DAILY 02/27/21 02/27/21 Elemental)] Pregabalin [Lyrica] See Taper PO DIRECTED 02/27/21 02/27/21 Previous Rx's Medication Instructions Recorded Docusate [Colace] 100 mg PO DAILY #30 cap 02/21/21 HYDROcodone/APAP 7.5-325MG [[place] 1 each PO Q6HR PRN #28 tab 02/21/21 7.5-325] Aspirin 325 mg PO DAILY 30 Days #30 tab 03/02/21 Cephalexin [Keflex] 500 mg PO Q6HR 10 Days #40 cap 03/02/21 Allergies Allergy/AdvReac Type Severity Reaction Status Date / Time No Known Allergies Allergy Verified 02/27/21 17:27 Review of Systems ROS Other: All systems not noted in ROS Statement are negative. <Milagro Adler - Last Filed: 02/27/21 19:17> ROS Other: All systems not noted in ROS Statement are negative. <Kathy Powell - Last Filed: 03/02/21 15:00> ROS Statement: Those systems with pertinent positive or pertinent negative responses have been documented in the HPI. 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 COLONOSCOPY Past Psychological History: No Psychological Hx Reported Smoking Status: Former smoker Past Alcohol Use History: None Reported Past Drug Use History: None Reported - Past Family History Father History Unknown: Yes Family Medical History: No Reported History Mother History Unknown: Yes <Milagro Adler - Last Filed: 02/27/21 19:17> General Exam Limitations: no limitations <Milagro Adler - Last Filed: 02/27/21 19:17> - General Exam Comments Initial Comments: GENERAL: Patient is well-developed and well-nourished. Patient is nontoxic and in no acute distress. HEAD: Atraumatic, normocephalic. EYES: Pupils equal round and reactive to light, extraocular movements intact, sclera anicteric, conjunctiva are normal. Eyelids were unremarkable. ENT: Nares patent, oropharynx clear without exudates. Moist mucous membranes. NECK: Normal range of motion, supple without lymphadenopathy or JVD. LUNGS: Unlabored respirations. Breath sounds clear to auscultation bilaterally and equal. No wheezes rales or rhonchi. HEART: Regular rate and rhythm without murmurs, rubs or gallops. ABDOMEN: Soft, nontender, normoactive bowel sounds. No guarding, no rebound. No masses appreciated. MUSCULOSKELETAL: Patient is a 1 week postop right total knee replacement, limited range of motion secondary to surgery. He is neurovascular intact, 2+ pitting edema. No clubbing or cyanosis. NEUROLOGICAL: Patient is alert and oriented x 3. PSYCH: Normal mood, normal affect. SKIN: Warm, Dry, normal turgor. Patient's right lower leg is erythematous, 3+ edema causing a blistering of the skin. He has 2 blisters that are blood filled, one on the medial aspect of the knee, one in the lateral aspect of the has opened up and drained. There is a very small area to the lateral right knee that seems to be draining green drainage. The surgical incision looks well, no signs of infection and incision. (Milagro Adler) Course <Milagro Adler - Last Filed: 02/27/21 19:17> Vital Signs 02/27/21 02/27/21 10:29 17:46 Temperature 98.7 F 98.8 F Pulse Rate 80 74 Respiratory 20 16 Rate Blood Pressure 123/65 126/76 O2 Sat by Pulse 96 96 Oximetry - Reevaluation(s) Reevaluation #1: 02/27/21 14:41 Been waiting on ortho to call back for about 45 min, they are in surgery and will call back when they are done. (Milagro Adler) Medical Decision Making - Lab Data Result diagrams: 02/27/21 12:27 02/27/21 12:27 <Milagro Adler - Last Filed: 02/27/21 19:17> - Lab Data Result diagrams: 03/02/21 05:59 03/01/21 08:34 <Kathy Powell - Last Filed: 03/02/21 15:00> - Medical Decision Making Patient is a 70-year-old male, one week postop total right knee replacement by Dr. Arora. He's been having issues with swelling, blisters of the right lower leg. He is on Coumadin secondary to stroke. He returns today with worsening swelling and blisters. No fevers. His vitals are stable. Labs reveal a white count 13.7 which is stable from earlier this week. Hemoglobin has dropped slightly to 9.2. 11. His INR is 1.7. CRP is 15.6. I did speak with Greg Zepeda, who did come see the patient and agrees that patient needs to be admitted for IV antibiotics. They will consult wound care and medical management. Patient is agreeable to this plan of care. Case discussed with Dr. Powell. (Milagro Adler) I was available for consultation in the emergency department. The history and physical exam were done by the midlevel provider. I was consulted for this patients care. I reviewed the case with the midlevel provider and based on their presentation of the patient, I agree with the assessment, medical decision making and plan of care as documented. I evaluated the patient myself - believes he need admission at this time. Chart was dictated using [employer] dictation software. Attempts were made to correct any dictation errors however some typographical errors may persist. (Kathy Powell) - Lab Data Lab Results 02/27/21 02/27/21 02/27/21 Range/Units 12:27 12:27 12:27 WBC 13.7 H (3.8-10.6) k/uL RBC 2.95 L (4.30-5.90) m/uL Hgb 9.2 L (13.0-17.5) gm/dL Hct 27.9 L (39.0-53.0) % MCV 94.4 (80.0-100.0) fL MCH 31.2 (25.0-35.0) pg MCHC 33.0 (31.0-37.0) g/dL RDW 14.9 (11.5-15.5) % Plt Count 431 (150-450) k/uL MPV 7.7 Neutrophils % 76 % Lymphocytes % 13 % Monocytes % 7 % Eosinophils % 2 % Basophils % 0 % Neutrophils # 10.4 H (1.3-7.7) k/uL Lymphocytes # 1.8 (1.0-4.8) k/uL Monocytes # 0.9 (0-1.0) k/uL Eosinophils # 0.3 (0-0.7) k/uL Basophils # 0.0 (0-0.2) k/uL PT 17.0 H (9.0-12.0) sec INR 1.7 H (<1.2) APTT 30.9 H (22.0-30.0) sec Sodium 134 L (137-145) mmol/L Potassium 3.5 (3.5-5.1) mmol/L Chloride 102 (98-107) mmol/L Carbon Dioxide 25 (22-30) mmol/L Anion Gap 7 mmol/L BUN 13 (9-20) mg/dL Creatinine 0.93 (0.66-1.25) mg/dL Est GFR (CKD-EPI)AfAm >90 (>60 ml/min/1.73 sqM) Est GFR (CKD-EPI)NonAf 84 (>60 ml/min/1.73 sqM) Glucose 111 H (74-99) mg/dL Calcium 8.2 L (8.4-10.2) mg/dL Total Bilirubin 0.8 (0.2-1.3) mg/dL AST 79 H (17-59) U/L ALT 94 H (4-49) U/L Alkaline Phosphatase 73 (38-126) U/L C-Reactive Protein 15.6 H (<1.0) mg/dL NT-Pro-B Natriuret Pep pg/mL Total Protein 6.3 (6.3-8.2) g/dL Albumin 2.9 L (3.5-5.0) g/dL 02/27/21 Range/Units 12:27 WBC (3.8-10.6) k/uL RBC (4.30-5.90) m/uL Hgb (13.0-17.5) gm/dL Hct (39.0-53.0) % MCV (80.0-100.0) fL MCH (25.0-35.0) pg MCHC (31.0-37.0) g/dL RDW (11.5-15.5) % Plt Count (150-450) k/uL MPV Neutrophils % % Lymphocytes % % Monocytes % % Eosinophils % % Basophils % % Neutrophils # (1.3-7.7) k/uL Lymphocytes # (1.0-4.8) k/uL Monocytes # (0-1.0) k/uL Eosinophils # (0-0.7) k/uL Basophils # (0-0.2) k/uL PT (9.0-12.0) sec INR (<1.2) APTT (22.0-30.0) sec Sodium (137-145) mmol/L Potassium (3.5-5.1) mmol/L Chloride (98-107) mmol/L Carbon Dioxide (22-30) mmol/L Anion Gap mmol/L BUN (9-20) mg/dL Creatinine (0.66-1.25) mg/dL Est GFR (CKD-EPI)AfAm (>60 ml/min/1.73 sqM) Est GFR (CKD-EPI)NonAf (>60 ml/min/1.73 sqM) Glucose (74-99) mg/dL Calcium (8.4-10.2) mg/dL Total Bilirubin (0.2-1.3) mg/dL AST (17-59) U/L ALT (4-49) U/L Alkaline Phosphatase (38-126) U/L C-Reactive Protein (<1.0) mg/dL NT-Pro-B Natriuret Pep 960 pg/mL Total Protein (6.3-8.2) g/dL Albumin (3.5-5.0) g/dL Disposition Decision Date: 02/27/21 Decision Time: 15:08 <Milagro Adler - Last Filed: 02/27/21 19:17> <Kathy Powell - Last Filed: 03/02/21 15:00> Clinical Impression: Leg edema, right, Cellulitis of right leg, Status post total right knee replacement Disposition: ADMITTED IP TO THIS [facility] Condition: Stable
[2021-02-27 12:39] LABS: Basophils % (A) 0 %; Eosinophils # (A) 0.3 k/uL (0-0.7); Eosinophils % (A) 2 %; HCT 27.9 % (39.0-53.0); HGB 9.2 gm/dL (13.0-17.5); Lymphocytes # (A) 1.8 k/uL (1.0-4.8); Lymphocytes % (A) 13 %; MCH 31.2 pg (25.0-35.0); MCV 94.4 fL (80.0-100.0); Mean Platelet Volume 7.7; Monocytes # (A) 0.9 k/uL (0-1.0); Monocytes % (A) 7 %; Neutrophils # (A) 10.4 k/uL (1.3-7.7); Neutrophils % (A) 76 %; Platelet Count 431 k/uL (150-450); RBC 2.95 m/uL (4.30-5.90); RDW 14.9 % (11.5-15.5); WBC 13.7 k/uL (3.8-10.6)
[2021-02-27 12:51] LABS: INR 1.7 (<1.2); Partial Thromboplastin Time 30.9 sec (22.0-30.0)
[2021-02-27 12:52] LABS: ALT 94 U/L (4-49); AST 79 U/L (17-59); African American GFR (CKD) >90 (>60 ml/min/1.73 sqM); Albumin 2.9 g/dL (3.5-5.0); Alkaline Phosphatase 73 U/L (38-126); Anion Gap 7 mmol/L; Blood Urea Nitrogen 13 mg/dL (9-20); Calcium 8.2 mg/dL (8.4-10.2); Carbon Dioxide 25 mmol/L (22-30); Chloride 102 mmol/L (98-107); Glucose 111 mg/dL (74-99); Non-African American GFR(CKD) 84 (>60 ml/min/1.73 sqM); Potassium 3.5 mmol/L (3.5-5.1); Sodium 134 mmol/L (137-145); Total Bilirubin 0.8 mg/dL (0.2-1.3); Total Protein 6.3 g/dL (6.3-8.2)
[2021-02-27 13:07] LABS: C Reactive Protein 15.6 mg/dL (<1.0)
[2021-02-27] MEDS ORDERED: cefTRIAXone IN SWFI 1,000 MG/10 ML SYRINGE IVP STA (14:11)
[2021-02-27] MEDS ORDERED: ACETAMINOPHEN TAB 325 MG TAB PO PRN (15:05)
[2021-02-27] MEDS ORDERED: ONDANSETRON 4 MG/2 ML VIAL IVP PRN (15:05)
[2021-02-27] MEDS ORDERED: NALOXONE 0.4 MG/ML 1 ML VIAL IV PRN (15:05)
[2021-02-27] MEDS ORDERED: VANCOMYCIN IV PER PHARMACY 1 EACH MISC MISCELLANE PRN (15:54)
[2021-02-27] MEDS ORDERED: HYDROcodone/APAP 7.5-325MG 1 EACH TAB PO PRN (15:58)
[2021-02-27] MEDS ORDERED: VANCOMYCIN 1,750 MG in SODIUM CHLORIDE 0.9% 500 ML 500 ML IVPB ONE (16:00)
--- NOTE | 2021-02-27 16:15 | P.HPOR ---
History of Present Illness H&P Date: 02/27/21 Chief Complaint: Right lower extremity swelling, right lower extremity blisters Patient is a 70-year-old male who recently underwent a right total knee arthroplasty by Dr. Arora on 02/20/2021. Patient was discharged home postop day #1 was doing well. Patient developed blisters trending into 02/21/2021. He did report to the office, notable swelling was noted throughout the extremity with blisters on the lateral aspect of the knee. Patient was sent for a Doppler that afternoon, which was negative. Patient was instructed on icing and elevating along with continuing his home exercises. Patient has been monitored by home physical therapy and home nursing. We were contacted on Saturday02/24/2021 by the emergency room staff regarding patient, he reported there due to concerns with the swelling and blistering. After discussion with the emergency room staff, patient was placed on prophylactic oral antibiotics discharged home, at that time we had recommended follow-up in the office the following week for recheck. I was contacted today regarding the patient, he was back in the emergency room with worsening blisters along with soft tissue swelling. I was able to evaluate the patient at bedside in the emergency room today, Dr. Arora was also present. The soft tissue swelling the lower extremity was severely increased, along with the blisters. The lateral aspect blisters were present, there was a new blister on the medial aspect just distal to the incision. Patient was also noted to have blistering where the tape was placed for the On-Q pain pump. patient's is present with him today bedside and is very worried about his condition. during his postoperative course, his knee has continued to improve. He has continued to utilize the physical therapy exercises along with the CPM machine. He's having no acute changes and pain with regards to the knee. He denies any fevers or chills at this time. Patient denies any orthopedic complaints at this time. Initial labs did reveal a white blood cell count 13.7 and a CRP level 15.6. Silver gore's INR is 1.7, he normally takes Coumadin daily. He has been bridging with Lovenox while at home. 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 COLONOSCOPY Past Psychological History: No Psychological Hx Reported Smoking Status: Former smoker Past Alcohol Use History: None Reported Past Drug Use History: None Reported Medications and Allergies Home Medications Medication Instructions Recorded Confirmed Type Atorvastatin [Lipitor] 40 mg PO HS 02/17/21 02/20/21 History Fexofenadine HCl 180 mg PO DAILY 02/17/21 02/20/21 History Fluticasone Nasal [place] [Flonase 2 spray EA NOSTRIL DAILY 02/17/21 02/20/21 History Nasal [place]] Furosemide [Lasix] 20 mg PO DAILY 02/17/21 02/20/21 History Losartan [Cozaar] 25 mg PO DAILY 02/17/21 02/20/21 History Metoprolol Succinate (ER) [Toprol 25 mg PO DAILY 02/17/21 02/20/21 History XL] Warfarin [Coumadin] 5 mg PO SUTUWETHSA 02/17/21 02/20/21 History Warfarin [Coumadin] 7.5 mg PO MOFR 02/17/21 02/20/21 History Docusate [Colace] 100 mg PO DAILY #30 cap 02/21/21 Rx Enoxaparin [Lovenox] 30 mg SQ DAILY #7 each 02/21/21 Rx HYDROcodone/APAP 7.5-325MG [[place] 1 each PO Q6HR PRN #28 tab 02/21/21 Rx 7.5] Pregabalin [Lyrica] 75 mg PO BID 14 Days #21 cap 02/21/21 Rx Benzonatate [Tessalon Perles] 200 mg PO Q8HR #30 cap 02/24/21 Rx Cephalexin [Keflex] 500 mg PO Q6HR #40 cap 02/24/21 Rx guaiFENesin-Coden 100-10MG/5ML 10 ml PO Q6H PRN 3 Days #120 ml 02/24/21 Rx [Robitussin AC] Allergies Allergy/AdvReac Type Severity Reaction Status Date / Time No Known Allergies Allergy Verified 02/27/21 10:32 Physical Examination Right lower extremity: The operative foam dressing was removed today bedside, the incision is well healing. There is no obvious breaks in the skin, there was good scab noted very. There is no erythema or drainage appreciated. There is no obvious blistering surrounding the incision or any areas of the adhesive that was on the foam dressing. 2 large blisters were noted, one being on the lateral/posterior aspect of the knee, the other one is just medial and distal to the distal and the incision. Notable +3+ pitting edema is present in the lower extremity with erythema present throughout the lower extremity from the distal incision all the way to the foot. There is weeping of the skin noted. There is bruising appreciated along the lateral aspect of the lower leg and the lateral posterior aspect of the thigh. Plantar flexion, dorsiflexion, EHL, FHL are intact Gentle passive motion of the knee reproduces no pain, active motion of the patient's knee reproduces no significant pain Logroll maneuver the hip reproduces no pain There is notable swelling in the calf,negative tenderness with palpation. Negative Homans test. Sensory exam to light touch is intact throughout the extremity, the skin is warm to touch. Results - Labs Labs: Abnormal Lab Results - Last 24 Hours (Table) 02/27/21 02/27/21 02/27/21 Range/Units 12:27 12:27 12:27 WBC 13.7 H (3.8-10.6) k/uL RBC 2.95 L (4.30-5.90) m/uL Hgb 9.2 L (13.0-17.5) gm/dL Hct 27.9 L (39.0-53.0) % Neutrophils # 10.4 H (1.3-7.7) k/uL PT 17.0 H (9.0-12.0) sec INR 1.7 H (<1.2) APTT 30.9 H (22.0-30.0) sec Sodium 134 L (137-145) mmol/L Glucose 111 H (74-99) mg/dL Calcium 8.2 L (8.4-10.2) mg/dL AST 79 H (17-59) U/L ALT 94 H (4-49) U/L C-Reactive Protein 15.6 H (<1.0) mg/dL Albumin 2.9 L (3.5-5.0) g/dL H & H 02/27/21 Range/Units 12:27 Hgb 9.2 L (13.0-17.5) gm/dL Hct 27.9 L (39.0-53.0) % Coagulation 02/27/21 Range/Units 12:27 INR 1.7 H (<1.2) Result Diagrams: 02/27/21 12:27 02/27/21 12:27 Assessment and Plan Assessment: Right lower extremity swelling Right lower extremity blisters Possible right lower extremity cellulitis History of recent right total knee arthroplasty, low concern for septic arthropathy Other medical comorbidities Plan: At this time we are recommending that the patient be admitted to [facility] for further evaluation by other medical specialists. Local concerns for septic arthropathy of the right knee at this time. With patients current lab results including an elevated white blood cell count and CRP, we will continue to trend those. With the patient's recent surgery I would expect the CRP elevated, also taking in consideration the cellulitic component with significant inflammation of lower extremity Patient was given a dose of Rocephin while in the ER initially, I discussed with the emergency room staff we will begin IV vancomycin with pharmacy to dose. Infectious disease has been consulted and appreciated the recommendations at this time The 2 large blisters were drained at bedside today with sterile gloves and needle. A basic bandage was placed. Prior to the blister evacuation, a new optifoam dressing was placed. Wound care has been consulted with regards to the blisters and further treatment Internal medicine has been consulted for medical management and the recommendations GI and DVT prophylaxis, INR was 1.7 today, we will begin Coumadin protocol. Lovenox will also be utilized until INR is therapeutic PT/OT evaluation Pain control, oral medications have been restarted We will continue to follow patient during inpatient stay Time with Patient: Less than 30
--- NOTE | 2021-02-27 17:27 | XR ---
EXAMINATION TYPE: XR chest 1V DATE OF EXAM: 02/27/2021 COMPARISON: NONE HISTORY: Pleural effusion and dyspnea. TECHNIQUE: Single frontal view of the chest is obtained. FINDINGS: There is moderate perihilar and bibasilar opacities, greater on the right. No significant pleural effusion, or pneumothorax seen. Cardiomegaly. The osseous structures are intact. IMPRESSION: Moderate opacities, concerning for infiltrates. No significant pleural effusion.
[2021-02-27] MEDS ORDERED: BENZONATATE 100 MG CAP PO PRN (18:31)
[2021-02-27] MEDS ORDERED: FLUTICASONE 50MCG/SPRAY NASAL 16GM EA NOSTRIL PRN (18:31)
--- NOTE | 2021-02-27 18:56 | P.CONS ---
History of Present Illness - Reason for Consult Consult date: 02/27/21 - Chief Complaint Blisters, swelling - History of Present Illness 70 year old man with history of hypertension, CVA, HLD, SUNNY from recent blood loss following surgery, s/p TKA of right knee, presented for evaluation of worsening blisters and swelling. Medicine consulting for medical management. Pt underwent successful TKA of right knee on 02/20 and was discharged on 02/21. He then developed increasing swelling in the right LE with blister formation on the lateral superior aspect of the knee prompting revisit to the ER on 02/22. Pt underwent LE duplex which was negative for DVT and was subsequently discharged on some PO lasix. Patient's leg continued to develop worsening edema, predominantly right sided. His next encounter was on 02/24 in which the orthopedic team was contacted and recommended prophylactic abx. Pt returned again today with steadily worsening symptoms. Ortho team evaluated RLE today and patient noted to have significantly worse lateral blisters in superior and inferior of the knee as well as new medial blister surrounding on-Q pump. Pt also reports increasing cough and congestion starting on 02/21 which has not resolved in past 5 days. He was prescribed cough syrup but this did not seem to help. Pt does report some post-nasal drip as a triggering factor. He denies fevers, chills, nausea, vomiting, chest pain, palps, pleurisy, dyspnea, syncope, abd pain, constipation, diarrhea, numbness/weakness. Of note, I reviewed patient's coumadin indication with him. Apparently he was prescribed this in the hospital in 2014 after having a cryptogenic stroke. He underwent DIANNA at the time which was negative for thrombus or PFO; he also underwent 3 years of loop recorder monitoring and this did not identify any arrhythmic events. For the stroke, he had been taking ASA as well for over a month, but was taken off because his aspirin use was attributed to the development of swollen and blue lips at one point. Patient is afebrile, 123/65, HR 80, 96% on room air. Labs show mild leukocytosis to 13.7, stable Hgb of 9.2. INR is 1.7. Albumin is low, liver enzymes mildly elevated. CRP is 15.6. COVID negative. CXR demonstrates pulmonary opacities b/l. Review of Systems All Systems reviewed and pertinent positives and negatives noted in HPI, all other symptoms are negative Past Medical History Additional Past Medical History / Comment(s): CVA 2015-STILL HAS SOME RESIDUAL TINGLING IN FINGERS History of Any Multi-Drug Resistant Organisms: None Reported Past Surgical History: Joint Replacement, Orthopedic Surgery Additional Past Surgical History / Comment(s): BILAT CATARACTS REMOVED WITH LENS IMPLANTS. COLONOSCOPY Past Psychological History: No Psychological Hx Reported Smoking Status: Former smoker Past Alcohol Use History: None Reported Past Drug Use History: None Reported Medications and Allergies Home Medications Medication Instructions Recorded Confirmed Type Atorvastatin [Lipitor] 40 mg PO HS 02/17/21 02/27/21 History Fexofenadine HCl 180 mg PO DAILY 02/17/21 02/27/21 History Fluticasone Nasal [place] [Flonase 2 spray EA NOSTRIL DAILY PRN 02/17/21 02/27/21 History Nasal [place]] Furosemide [Lasix] 20 mg PO DAILY 02/17/21 02/27/21 History Losartan [Cozaar] 25 mg PO DAILY 02/17/21 02/27/21 History Metoprolol Succinate (ER) [Toprol 25 mg PO DAILY 02/17/21 02/27/21 History XL] Warfarin [Coumadin] 5 mg PO SUTUWETHSA@1700 02/17/21 02/27/21 History Docusate [Colace] 100 mg PO DAILY #30 cap 02/21/21 02/27/21 Rx Enoxaparin [Lovenox] 30 mg SQ DAILY #7 each 02/21/21 02/27/21 Rx HYDROcodone/APAP 7.5-325MG [[place] 1 each PO Q6HR PRN #28 tab 02/21/21 02/27/21 Rx 7.5] Cephalexin [Keflex] 500 mg PO Q6HR #40 cap 02/24/21 02/27/21 Rx Benzonatate [Tessalon Perles] 200 mg PO Q8HR PRN 02/27/21 02/27/21 History Ferrous Sulfate [Iron (65 MG 325 mg PO DAILY 02/27/21 02/27/21 History Elemental)] Pregabalin [Lyrica] See Taper PO DIRECTED 02/27/21 02/27/21 History Warfarin [Coumadin] 7.5 mg PO MOFR@1700 02/27/21 02/27/21 History Allergies Allergy/AdvReac Type Severity Reaction Status Date / Time No Known Allergies Allergy Verified 02/27/21 17:27 Physical Exam Osteopathic Statement: *. No significant issues noted on an osteopathic structural exam other than those noted in the History and Physical/Consult. Vitals: Vital Signs Temp Pulse Resp BP Pulse Ox 02/27/21 17:46 98.8 F 74 16 126/76 96 02/27/21 10:29 98.7 F 80 20 123/65 96 Intake and Output 02/27/21 02/27/21 02/27/21 06:59 14:59 22:59 Other: Weight 117.934 kg Gen: awake, alert HEENT: normocephalic, atraumatic, good hearing acuity, moist mucous membranes Resp: good air exchange, breathing comfortably with no accessory muscle use, bilateral posterior crackles greater on the right CVS: good distal perfusion x 4, regular rate and rhythm, blowing systolic murmur GI: soft, NTTP, ND : no SPT, no CVAT, igl catheter not present MSK: + pitting edema with erythema, multiple small blisters with large blisters surrounding the kneecap greater on the right lower extremity, no clubbing Neuro: non-focal, moving all extremities Psych: cooperative, euthymic mood Results CBC & Chem 7: 02/27/21 12:27 02/27/21 12:27 Labs: Abnormal Lab Results - Last 24 Hours (Table) 02/27/21 02/27/21 02/27/21 Range/Units 12:27 12:27 12:27 WBC 13.7 H (3.8-10.6) k/uL RBC 2.95 L (4.30-5.90) m/uL Hgb 9.2 L (13.0-17.5) gm/dL Hct 27.9 L (39.0-53.0) % Neutrophils # 10.4 H (1.3-7.7) k/uL PT 17.0 H (9.0-12.0) sec INR 1.7 H (<1.2) APTT 30.9 H (22.0-30.0) sec Sodium 134 L (137-145) mmol/L Glucose 111 H (74-99) mg/dL Calcium 8.2 L (8.4-10.2) mg/dL AST 79 H (17-59) U/L ALT 94 H (4-49) U/L C-Reactive Protein 15.6 H (<1.0) mg/dL Albumin 2.9 L (3.5-5.0) g/dL Assessment and Plan Assessment: Right lower extremity edema Edema blisters Status post TKA -Ortho team to continue following -Antibiotics per orthopedic team -Continue Lasix -Lower extremity ultrasound Mitral regurgitation Pulmonary edema -CT angiography -Echocardiogram -Lasix as above Hypertension History of CVA Hyperlipidemia Chronic blood thinner -Continue home meds -No clear indication for warfarin, therefore we'll discontinue at this time DVT prophylaxis with enoxaparin Patient is a full code
--- NOTE | 2021-02-27 20:04 | US ---
EXAMINATION TYPE: US venous doppler duplex LE RT DATE OF EXAM: 02/27/2021 7:50 PM COMPARISON: US CLINICAL HISTORY: r/o DVT, Edema, pain. Edema and pain. No hx of DVT. Patient on warfarin. Total righ t knee replacement 02/20/2021. SIDE PERFORMED: Right TECHNIQUE: The lower extremity deep venous system is examined utilizing real time linear array sonog nellie with graded compression, doppler sonography and color-flow sonography. VESSELS IMAGED: Common Femoral Vein Deep Femoral Vein Greater Saphenous Vein * Femoral Vein Popliteal Vein Small Saphenous Vein * Proximal Calf Veins (* superficial vessels) Exam very limited due to large bandage. Unable to visualize distal popliteal vein and prox calf veins . Limited imaging of mid popliteal vein. Right Leg: No evidence of DVT in veins imaged. Limited study. Distal femoral vein not visualized in transverse compression view. Unable to evaluate distal popliteal and prox calf veins. -Hypoechoic area with hyperechoic center seen within the right groin, consistent with lymph node: 2.7 x 2.5 x 1.0 cm. IMPRESSION: No evidence of right lower extremity DVT within the limitations of this study. Incidental prominent right inguinal lymph node, likely reactive.
[2021-02-27] MEDS: HYDROcodone/APAP 7.5-325MG 1 EACH TAB PO PRN (20:31)
[2021-02-27] MEDS: ATORVASTATIN 40 MG TAB PO SCH (20:32)
--- NOTE | 2021-02-27 23:18 | CT ---
EXAMINATION TYPE: CT angio chest DATE OF EXAM: 02/27/2021 COMPARISON: None HISTORY: r/o PE Chest pain CT DLP: 696.8 mGycm Automated exposure control for dose reduction was used. CONTRAST: Performed with IV Contrast, patient injected with 100 mL of Isovue 370. There are 3-D post processed images. There is coarse peripheral interstitial and airspace infiltrate in both lungs. Heart is borderline en larged. There is no pericardial effusion. There is no pleural effusion. There are multiple enlarged b ronchial and mediastinal lymph nodes up to 2 cm. Thoracic aorta is intact. There is borderline aneury sm ascending aorta that measures 4.1 cm. I see no sign of dissection. There is no evidence of filling defect in the pulmonary arteries. The thoracic spine is intact. There is no compression fracture. Ribs appear intact. IMPRESSION: No evidence of pulmonary embolism. Extensive patchy pulmonary peripheral infiltrates with mediastinal and bronchial adenopathy. This could relate to sarcoidosis. Recommend comparison with old exam. Artificial Cherry Maker parveen interstitial pneumonia is possible.
[2021-02-28] MEDS: HYDROcodone/APAP 7.5-325MG 1 EACH TAB PO PRN ×2 (02:32→19:15)
[2021-02-28] MEDS ORDERED: VANCOMYCIN 1,750 MG in SODIUM CHLORIDE 0.9% 500 ML 500 ML IVPB SCH (04:00)
--- NOTE | 2021-02-28 06:49 | P.CONS ---
History of Present Illness - Reason for Consult Consult date: 02/27/21 right leg cellulitis Requesting physician: Milagro Adler - Chief Complaint right leg swelling and redness x few days - History of Present Illness History of present illness : Patient is 70-year male with a past medical history significant for right knee replacement on 02/20/2021 patient was discharged on postop day 1 apparently the patient has done up with significant blood blister on the lateral aspect as well as posterior aspect of his right upper leg just below the knee for the patient has been evaluated by orthopedics in the office and recommending supportive care patient was sent to the ER on 02/24/2021 by the home care nurse concerning for worsening of the blistering patient was evaluated in the ER and subsequently discharged home catarina ent mentioned that blister subsequently ruptured with the drainage of some yellowish fluid and this morning he noticed right leg becoming more brighter patient complains of pain to the leg with more frequent aching and throbbing 5-6 out of 10 and no radiation patient has blistering formation and clear fluid drainage patient denies any high-grade fever or chills no chest pain shortness of breath or cough no vomiting no abdominal pain or any diarrhea on presentation to the hospital the patient was afebrile he did have white count of 13.7 with a left shift INR was 1.7 creatinine was normal liver enzymes are mildly elevated gibson PCR was negative patient was started on vancomycin admitted to the hospital infectious was consulted for further management Review of system: CONSTITUTIONAL: Positive for weakness denies high-grade fever. EYES: No complaint. ENT: No complaint. RESPIRATORY: No complaint. CARDIOVASCULAR: No complaint. GENITOURINARY: No complaint. GASTROINTESTINAL: No complaint. MUSCULOSKELETAL as per history of present illness. INTEGUMENTARY: As per history of present illness. PSYCHOLOGIC: No complaint. ENDOCRINE: No complaint. NEUROLOGIC: No complaint. Past medical history : Reviewed, documented below Past surgical history : Reviewed, documented below Social history: Reviewed, documented below Medications: Reviewed, as documented below EXAMINATION: Vital sigans= Reviewed and documented below GENERAL DESCRIPTION: Elderly male lying in bed, no distress. No tachypnea or accessory muscle of respiration use. HEENT: Shows Pallor , no scleral icterus. Oral mucous membrane is dry. NECK: Trachea central, no thyromegaly. LUNGS: Unlabored breathing. Clear to auscultation anteriorly. No wheeze or crackle. HEART: S1, S2, regular rate and rhythm. ABDOMEN: Soft, no tenderness , guarding or rigidity EXTREMITIES: Right lower extremity with diffuse swelling and redness with blister formation and clear drainage. SKIN: No rash, no masses palpable. NEUROLOGICAL: The patient is awake, alert, oriented x3, mood and affect normal. LABS AND RADIOLOGY: Reviewed results see below Assessment : Patient presented to hospital with extensive right lower extremity cellulitis in this patient who is status post right knee replacement about a week ago, more likely streptococcal cellulitis with slight worsening from extensive swelling to lower extremity Plan: 1-discontinue vancomycin 2-cefazolin 2 g every 8 hour 3-Mikael wrap to the leg from just above the toe to below the knee We will follow on clinical condition and cultures to further adjust medication if needed Thank you for this consultation we will follow the patient along with you Past Medical History Additional Past Medical History / Comment(s): CVA 2014-STILL HAS SOME RESIDUAL TINGLING IN FINGERS History of Any Multi-Drug Resistant Organisms: None Reported Past Surgical History: Joint Replacement, Orthopedic Surgery Additional Past Surgical History / Comment(s): BILAT CATARACTS REMOVED WITH LENS IMPLANTS. COLONOSCOPY Past Anesthesia/Blood Transfusion Reactions: No Reported Reaction Past Psychological History: No Psychological Hx Reported Smoking Status: Former smoker Past Alcohol Use History: None Reported Past Drug Use History: None Reported - Past Family History Father History Unknown: Yes Family Medical History: No Reported History Mother History Unknown: Yes Medications and Allergies Home Medications Medication Instructions Recorded Confirmed Type Atorvastatin [Lipitor] 40 mg PO HS 02/17/21 02/27/21 History Fexofenadine HCl 180 mg PO DAILY 02/17/21 02/27/21 History Fluticasone Nasal [place] [Flonase 2 spray EA NOSTRIL DAILY PRN 02/17/21 02/27/21 History Nasal [place]] Furosemide [Lasix] 20 mg PO DAILY 02/17/21 02/27/21 History Losartan [Cozaar] 25 mg PO DAILY 02/17/21 02/27/21 History Metoprolol Succinate (ER) [Toprol 25 mg PO DAILY 02/17/21 02/27/21 History XL] Warfarin [Coumadin] 5 mg PO SUTUWETHSA@1700 02/17/21 02/27/21 History Docusate [Colace] 100 mg PO DAILY #30 cap 02/21/21 02/27/21 Rx Enoxaparin [Lovenox] 30 mg SQ DAILY #7 each 02/21/21 02/27/21 Rx HYDROcodone/APAP 7.5-325MG [[place] 1 each PO Q6HR PRN #28 tab 02/21/21 02/27/21 Rx 7.5] Cephalexin [Keflex] 500 mg PO Q6HR #40 cap 02/24/21 02/27/21 Rx Benzonatate [Tessalon Perles] 200 mg PO Q8HR PRN 02/27/21 02/27/21 History Ferrous Sulfate [Iron (65 MG 325 mg PO DAILY 02/27/21 02/27/21 History Elemental)] Pregabalin [Lyrica] See Taper PO DIRECTED 02/27/21 02/27/21 History Warfarin [Coumadin] 7.5 mg PO MOFR@1700 02/27/21 02/27/21 History Allergies Allergy/AdvReac Type Severity Reaction Status Date / Time No Known Allergies Allergy Verified 02/27/21 17:27 Physical Exam Vitals: Vital Signs Temp Pulse Resp BP Pulse Ox 02/27/21 17:46 98.8 F 74 16 126/76 96 02/27/21 10:29 98.7 F 80 20 123/65 96 Intake and Output 02/27/21 02/27/21 02/27/21 06:59 14:59 22:59 Other: Weight 117.934 kg 117.934 kg Results CBC & Chem 7: 02/27/21 12:27 02/27/21 12:27 Labs: Abnormal Lab Results - Last 24 Hours (Table) 02/27/21 02/27/21 02/27/21 Range/Units 12:27 12:27 12:27 WBC 13.7 H (3.8-10.6) k/uL RBC 2.95 L (4.30-5.90) m/uL Hgb 9.2 L (13.0-17.5) gm/dL Hct 27.9 L (39.0-53.0) % Neutrophils # 10.4 H (1.3-7.7) k/uL PT 17.0 H (9.0-12.0) sec INR 1.7 H (<1.2) APTT 30.9 H (22.0-30.0) sec Sodium 134 L (137-145) mmol/L Glucose 111 H (74-99) mg/dL Calcium 8.2 L (8.4-10.2) mg/dL AST 79 H (17-59) U/L ALT 94 H (4-49) U/L C-Reactive Protein 15.6 H (<1.0) mg/dL Albumin 2.9 L (3.5-5.0) g/dL
[2021-02-28] MEDS ORDERED: PREGABALIN 75 MG CAP PO SCH (09:00)
[2021-02-28] MEDS ORDERED: ENOXAPARIN 30 MG/0.3 ML SYRINGE SQ SCH (09:00)
[2021-02-28] MEDS: FUROSEMIDE 20 MG TAB PO SCH (09:12)
[2021-02-28] MEDS: LOSARTAN 25 MG TAB PO SCH (09:12)
[2021-02-28] MEDS: ENOXAPARIN 40 MG/0.4 ML SYRINGE SQ SCH (09:12)
[2021-02-28] MEDS: DOCUSATE 100 MG CAP PO SCH (09:12)
[2021-02-28] MEDS: PREGABALIN 75 MG CAP PO SCH (09:13)
[2021-02-28] MEDS: FERROUS SULFATE 325 MG TAB PO SCH (09:13)
[2021-02-28] MEDS: METOPROLOL SUCCINATE (ER) 25 MG TAB.ER.24H PO SCH (09:13)
[2021-02-28 09:54] LABS: INR 1.58 (0.90-1.11); Prothrombin Time 16.7 sec (9.9-11.9)
[2021-02-28 10:50] LABS: African American GFR (CKD) 105.6 (60.0-200.0); Anion Gap 9.8 mmol/L (4.00-12.00); BUN/Creat Ratio 13.75 Ratio (12.00-20.00); Calcium 7.9 mg/dL (8.7-10.3); Carbon Dioxide 24.2 mmol/L (21.6-31.8); Magnesium 2.2 mg/dL (1.5-2.4); Non-African American GFR(CKD) 91.1 (60.0-200.0); Potassium 3.9 mmol/L (3.5-5.5)
[2021-02-28 11:23] LABS: Basophils # (A) 0.04 X 10*3/uL (0.00-0.10); Basophils % (A) 0.4 %; Eosinophils # (A) 0.47 X 10*3/uL (0.04-0.35); Eosinophils % (A) 4.3 %; HCT 23.8 % (39.6-50.0); HGB 7.3 g/dL (13.0-17.0); Lymphocytes # (A) 1.85 X 10*3/uL (0.90-5.00); MCH 29.8 pg (27.0-32.0); MCHC 30.7 g/dL (32.0-37.0); MCV 97.1 fL (80.0-97.0); Mean Platelet Volume 9.6 fL (9.5-12.2); Monocytes # (A) 1.27 X 10*3/uL (0.20-1.00); Monocytes % (A) 11.7 %; Neutrophils # (A) 7.16 X 10*3/uL (1.80-7.70); Neutrophils % (A) 65.8 %; Platelet Count 357 X 10*3/uL (140-440); RBC 2.45 X 10*6/uL (4.40-5.60); RDW 15.6 % (11.5-14.5); WBC 10.88 X 10*3/uL (4.50-10.00)
--- NOTE | 2021-02-28 11:48 | P.CONS ---
History of Present Illness - Reason for Consult Consult date: 02/28/21 wound care - History of Present Illness This is a 70-year-old patient being seen on 4 S. for nonhealing ulcerations to the right lower extremity lateral and anterior. Patient had a total knee approximately 2 weeks ago and developed some blistering to the lateral and anterior portion of the right lower extremity. Patient also has redness and weeping edema distally from the blistering. The right lateral ulceration measu res approximately 6 x 4 x 0.1 cm Limited to skin breakdown. There is dermis not attached to the wound bed. The wound bed shows granulation with minimal slough patient has a second ulceration superior to the larger ulceration measuring approximately 0.4 x 1.5 x 0.1 cm with significant amount of slough and no granulation. A third ulceration is located on the anterior portion of the right lower extremity measuring approximately 3 x 4 x 0.1 cm this is Limited to skin breakdown, the dermis is unattached to the wound bed. There is granulation throughout the wound bed with serosanguineous drainage. Distal to this ulceration the skin is intact however it is edematous and weeping. Incision is covered with a dressing that is clean and dry. Patient's past medical history is significant for a CVA, he is a former smoker, denies diabetes. Review Of Systems: Constitutional: No fever, no chills, no night sweats. No weight change. No weakness, fatigue or lethargy. No daytime sleepiness. Integumentary:reports wounds, no lesions. No rash or pruritus. No unusual bruising. No change in hair or nails. Physical exam: General Appearance: Alert, cooperative, no distress, appears stated age. Skin: See HPI all other Skin color, texture, tugor normal, no rashes or lesions. Neurologic: Alert oriented x3 Assessment: 1. Nonhealing ulceration multiple sites to the right lower extremity Limited to skin breakdown 2. Edema 3. Cellulitis Plan: 1. Open ulcerations: Apply absorptive silver, saline moist gauze, and foam. Wrap with rolled gauze and secure with tape. Intact skin apply triad and abd wrap with titus wrap. Patient would benefit from continued wound care upon discharge. We would be happy to see him in the wound care center upon discharge. Patient was agreeable. Thank you for the consultation any questions was contact the wound care center DNP note has been reviewed and discussed with Dr. Bustillos and the impression and plan of care has been directed as dictated. Past Medical History Additional Past Medical History / Comment(s): CVA 2014-STILL HAS SOME RESIDUAL TINGLING IN FINGERS History of Any Multi-Drug Resistant Organisms: None Reported Past Surgical History: Joint Replacement, Orthopedic Surgery Additional Past Surgical History / Comment(s): BILAT CATARACTS REMOVED WITH LENS IMPLANTS. COLONOSCOPY Past Anesthesia/Blood Transfusion Reactions: No Reported Reaction Past Psychological History: No Psychological Hx Reported Smoking Status: Former smoker Past Alcohol Use History: None Reported Past Drug Use History: None Reported - Past Family History Father History Unknown: Yes Family Medical History: No Reported History Mother History Unknown: Yes Medications and Allergies Home Medications Medication Instructions Recorded Confirmed Type Atorvastatin [Lipitor] 40 mg PO HS 02/17/21 02/27/21 History Fexofenadine HCl 180 mg PO DAILY 02/17/21 02/27/21 History Fluticasone Nasal [place] [Flonase 2 spray EA NOSTRIL DAILY PRN 02/17/21 02/27/21 History Nasal [place]] Furosemide [Lasix] 20 mg PO DAILY 02/17/21 02/27/21 History Losartan [Cozaar] 25 mg PO DAILY 02/17/21 02/27/21 History Metoprolol Succinate (ER) [Toprol 25 mg PO DAILY 02/17/21 02/27/21 History XL] Warfarin [Coumadin] 5 mg PO SUTUWETHSA@1700 02/17/21 02/27/21 History Docusate [Colace] 100 mg PO DAILY #30 cap 02/21/21 02/27/21 Rx Enoxaparin [Lovenox] 30 mg SQ DAILY #7 each 02/21/21 02/27/21 Rx HYDROcodone/APAP 7.5-325MG [[place] 1 each PO Q6HR PRN #28 tab 02/21/21 02/27/21 Rx 7.5] Cephalexin [Keflex] 500 mg PO Q6HR #40 cap 02/24/21 02/27/21 Rx Benzonatate [Tessalon Perles] 200 mg PO Q8HR PRN 02/27/21 02/27/21 History Ferrous Sulfate [Iron (65 MG 325 mg PO DAILY 02/27/21 02/27/21 History Elemental)] Pregabalin [Lyrica] See Taper PO DIRECTED 02/27/21 02/27/21 History Warfarin [Coumadin] 7.5 mg PO MOFR@1700 02/27/21 02/27/21 History Allergies Allergy/AdvReac Type Severity Reaction Status Date / Time No Known Allergies Allergy Verified 02/27/21 17:27 Physical Exam Vitals: Vital Signs Temp Pulse Pulse Resp BP BP Pulse Ox 02/28/21 09:05 98.1 F 78 18 110/66 96 02/28/21 01:57 99.4 F 81 18 106/67 96 02/27/21 20:30 98.1 F 77 16 124/72 97 02/27/21 17:46 98.8 F 74 16 126/76 96 Intake and Output 02/27/21 02/28/21 02/28/21 22:59 06:59 14:59 Intake Total 760 Output Total 700 Balance 60 Intake: Intake, IV Titration 500 Amount ceFAZolin 2 gm In Sodium 500 Chloride 0.9% 50 ml @ 100 mls/hr IVPB Q8HR [facility] Rx# :[id number] Oral 260 Output: Urine 700 Other: Voiding Method Toilet # Voids 2 Weight 117.934 kg Results CBC & Chem 7: 02/28/21 04:54 02/28/21 04:53 Labs: Abnormal Lab Results - Last 24 Hours (Table) 02/27/21 02/27/21 02/27/21 Range/Units 12:27 12:27 12:27 WBC 13.7 H (3.8-10.6) k/uL RBC 2.95 L (4.30-5.90) m/uL Hgb 9.2 L (13.0-17.5) gm/dL Hct 27.9 L (39.0-53.0) % MCV (80.0-97.0) fL MCHC (32.0-37.0) g/dL RDW (11.5-14.5) % Immature Gran # (0.00-0.04) X 10*3/uL Neutrophils # 10.4 H (1.3-7.7) k/uL Monocytes # (0.20-1.00) X 10*3/uL Eosinophils # (0.04-0.35) X 10*3/uL PT 17.0 H (9.0-12.0) sec INR 1.7 H (<1.2) APTT 30.9 H (22.0-30.0) sec Sodium 134 L (137-145) mmol/L Glucose 111 H (74-99) mg/dL Calcium 8.2 L (8.4-10.2) mg/dL AST 79 H (17-59) U/L ALT 94 H (4-49) U/L C-Reactive Protein 15.6 H (<1.0) mg/dL Albumin 2.9 L (3.5-5.0) g/dL 02/28/21 02/28/21 02/28/21 Range/Units 04:53 04:53 04:54 WBC 10.88 H (3.8-10.6) k/uL RBC 2.45 L (4.30-5.90) m/uL Hgb 7.3 L (13.0-17.5) gm/dL Hct 23.8 L (39.0-53.0) % MCV 97.1 H (80.0-97.0) fL MCHC 30.7 L (32.0-37.0) g/dL RDW 15.6 H (11.5-14.5) % Immature Gran # 0.09 H (0.00-0.04) X 10*3/uL Neutrophils # (1.3-7.7) k/uL Monocytes # 1.27 H (0.20-1.00) X 10*3/uL Eosinophils # 0.47 H (0.04-0.35) X 10*3/uL PT 16.7 H (9.0-12.0) sec INR 1.58 H (<1.2) APTT (22.0-30.0) sec Sodium 134 L (137-145) mmol/L Glucose (74-99) mg/dL Calcium 7.9 L (8.4-10.2) mg/dL AST (17-59) U/L ALT (4-49) U/L C-Reactive Protein (<1.0) mg/dL Albumin (3.5-5.0) g/dL Assessment and Plan (1) Non-pressure chronic ulcer of calf, right, limited to breakdown of skin Current Visit: Yes Status: Acute Code(s): L97.211 - NON-PRS CHRONIC ULCER OF RIGHT CALF LIMITED TO BRKDWN SKIN SNOMED Code(s): 78822790964163019 (2) Cellulitis of right leg Current Visit: Yes Status: Acute Code(s): L03.115 - CELLULITIS OF RIGHT LOWER LIMB SNOMED Code(s): 552883152 (3) Leg edema, right Current Visit: Yes Status: Acute Code(s): R60.0 - LOCALIZED EDEMA SNOMED Code(s): 857763925
[2021-02-28] MEDS: HYDROPHILIC CREAM 180 GM TUBE TOPICAL SCH (12:39)
--- NOTE | 2021-02-28 13:18 | PN ---
PROGRESS NOTE DATE OF SERVICE: 02/28/2021 REASON FOR FOLLOWUP: Acute right lower extremity cellulitis. INTERVAL HISTORY: Patient is afebrile. The patient is breathing comfortably. The patient denies having any chest pain, shortness of breath, cough, no abdominal pain. Overall pain and discomfort to the right leg has slightly decreased. PHYSICAL EXAMINATION: Blood pressure 110/66, pulse of 78, temperature 98.1. He is 96% on room air. General description is an elderly male lying in bed in no distress. Respiratory system: Unlabored breathing, clear to auscultation anteriorly. Heart S1, S2. Regular rate and rhythm. Abdomen soft, no tenderness. Right leg swelling and redness has decreased. LABS: Hemoglobin 7.3, white count 10.8, creatinine 0.8. DIAGNOSTIC IMPRESSION AND PLAN: Patient with acute right lower extremity cellulitis in this patient who has seemed to show overall clinical improvement with cefazolin to continue while monitoring clinical course closely. Continue supportive care. MMODL / IJN: [id number] /
--- NOTE | 2021-02-28 13:42 | P.PN ---
Subjective Progress Note Date: 02/28/21 Pt has no new complaints today. CTA demonstrated findings of peripheral lung fibrosis with mediastinal and hilar adenopathy. US LE showed inguinal adenopathy likely reactive. ID consult recommended ceftriaxone for streptococcal cellulitis. Wound care consult following. Objective - Vital Signs Vital signs: Vital Signs Temp 98.1 F 02/28/21 09:05 Pulse 78 02/28/21 09:05 Resp 18 02/28/21 09:05 BP 110/66 02/28/21 09:05 Pulse Ox 96 02/28/21 09:05 Intake & Output 02/27/21 02/28/21 02/28/21 18:59 06:59 18:59 Intake Total 760 Output Total 700 Balance 60 Weight 117.934 kg Intake: Intake, IV Titration 500 Amount ceFAZolin 2 gm In Sodium 500 Chloride 0.9% 50 ml @ 100 mls/hr IVPB Q8HR [facility] Rx# :[id number] Oral 260 Output: Urine 700 Other: Voiding Method Toilet # Voids 2 - Exam Gen: awake, alert HEENT: normocephalic, atraumatic, good hearing acuity, moist mucous membranes Resp: good air exchange, breathing comfortably with no accessory muscle use, bilateral posterior crackles greater on the right CVS: good distal perfusion x 4, regular rate and rhythm, blowing systolic murmur GI: soft, NTTP, ND : no SPT, no CVAT, gil catheter not present MSK: + pitting edema with erythema, multiple small blisters with large blisters surrounding the kneecap greater on the right lower extremity, no clubbing Neuro: non-focal, moving all extremities Psych: cooperative, euthymic mood - Labs CBC & Chem 7: 02/28/21 04:54 02/28/21 04:53 Labs: Abnormal Lab Results - Last 24 Hours (Table) 02/28/21 02/28/21 02/28/21 Range/Units 04:53 04:53 04:53 WBC (4.50-10.00) X 10*3/uL RBC (4.40-5.60) X 10*6/uL Hgb (13.0-17.0) g/dL Hct (39.6-50.0) % MCV (80.0-97.0) fL MCHC (32.0-37.0) g/dL RDW (11.5-14.5) % Immature Gran # (0.00-0.04) X 10*3/uL Monocytes # (0.20-1.00) X 10*3/uL Eosinophils # (0.04-0.35) X 10*3/uL PT 16.7 H (9.9-11.9) sec INR 1.58 H (0.90-1.11) Sodium 134 L (135-145) mmol/L Calcium 7.9 L (8.7-10.3) mg/dL Lactate Dehydrogenase 341 H (120-246) U/L 02/28/21 Range/Units 04:54 WBC 10.88 H (4.50-10.00) X 10*3/uL RBC 2.45 L (4.40-5.60) X 10*6/uL Hgb 7.3 L (13.0-17.0) g/dL Hct 23.8 L (39.6-50.0) % MCV 97.1 H (80.0-97.0) fL MCHC 30.7 L (32.0-37.0) g/dL RDW 15.6 H (11.5-14.5) % Immature Gran # 0.09 H (0.00-0.04) X 10*3/uL Monocytes # 1.27 H (0.20-1.00) X 10*3/uL Eosinophils # 0.47 H (0.04-0.35) X 10*3/uL PT (9.9-11.9) sec INR (0.90-1.11) Sodium (135-145) mmol/L Calcium (8.7-10.3) mg/dL Lactate Dehydrogenase (120-246) U/L Assessment and Plan Assessment: Right lower extremity edema with Cellulitis Edema blisters Status post TKA -Ortho team to continue following -Antibiotics per ID, ceftriaxone -BCx pending -Continue Lasix PO -Wound care consult recs appreciated Mitral regurgitation Cardiomegaly -Echo pending -Lasix as above Peripheral Pulmonary Fibrosis Mediastinal and Hilar Lymphadenopathy -Pulm consulted -likely outpatient bronch with biopsy and BAL -atypical pneumonia vs sarcoidosis, favor latter Hypertension History of CVA Hyperlipidemia Chronic blood thinner -Continue home meds -No clear indication for warfarin, therefore we'll discontinue at this time (read HPI in H&P for details) -once INR is below 1.5, can start patient on ASA 81mg and f/u to ensure no side effects DVT prophylaxis with enoxaparin Patient is a full code Dispo: make sure and are well counseled on any d/c instructions, as the especially has anxiety about caring for patient at home. I anticipate he will be medically ready to be discharged in 1-2 days.
--- NOTE | 2021-02-28 15:22 | P.CNPUL ---
History of Present Illness Consult date: 02/28/21 Reason for consult: abnormal CXR/CT History of present illness: 70-year-old patient, was found to have an abnormal chest x-ray and the computed tomography scan of the chest on the lung and for that reason the public consultation was requested. Note that the patient is currently in the hospital for those symptoms and swelling/cellulitis in addition to right lower extremity skin blisters. The patient underwent a right knee arthroplasty on 02/20/2021 for arthritis. The patient was discharged home postop day #1 without any issues. Subsequently, within next 24-48 hours, the patient developed skin blisters over the medial aspect of the right knee and the lateral aspect of the right knee. Following that, the patient started having increased swelling and erythema and warmness. This associated self looks dry clean and intact. The patient was placed on prophylactic antibiotics and the patient did not improve and he end up coming into the emergency department for further investigation. Doppler of the right lower extremity was negative for DVT. The patient came into the hospital and the patient was hospitalized with a tentative diagnosis of cellulitis. It was noted that the blistering was at his side of the tape with a On-Q pain pump was inserted. Patient denied having any fever or chills. No altered mentation. White cell count was at 13.7 with a CRP of 15.6. Was taking daily Coumadin and INR was at 1.7. He was also receiving bridging therapy with Lovenox at home. A routine chest x-ray was done in the emergency department that showed perihilar and lower lobe bilateral pulmonary opacities right more than left. Based on that, CT angios of the chest was done and the patient was found to have no evidence of any pulmonary embolism. There was extensive patchy pulmonary infiltrates peripheral along with mediastinal and bronchial lymphadenopathy. No previous films for comparison. Upon further questioning, the patient denies having any significant shortness of breath. He has had chronic cough. No hemoptysis. No pleurisy. No: 90 related pneumonia. The patient has no history of sarcoidosis. No TB exposure. No history of atypical mycobacterial infection. He is white cell cause of 10.8. His pulse ox on room air is some of 2 01/16/1997 percent. 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 No exposure to any farming products, animals, birds, or any other industrial material. No chronic pneumonia no aspiration. At this point in time, the patient is seen with IV cefazolin 2 g every 8 hours. All medications of been ordered resume. The patient is an ex-smoker. Review of Systems Constitutional: Denies chills, Denies fever Eyes: denies as per HPI, denies blurred vision, denies bulging eye, denies decreased vision, denies diplopia, denies discharge, denies dry eye, denies irritation, denies itching, denies pain, denies photophobia, denies loss of peripheral vision, denies loss of vision, denies tunnel vision/blind spots Ears: deny: decreased hearing, ear discharge, earache, tinnitus Ears, nose, mouth and throat: Denies headache, Denies sore throat Breasts: absent: as per HPI, gynecomastia Cardiovascular: Denies chest pain, Denies shortness of breath Respiratory: Reports cough Gastrointestinal: Reports as per HPI Genitourinary: Reports as per HPI Musculoskeletal: Reports as per HPI (Swelling of the right knee along with swelling of the right lower extremity and along with erythema and skin blisters as noted earlier in my dictation) Musculoskeletal: right: ankle pain, ankle stiffness, ankle swelling, knee swelling Integumentary: Reports as per HPI (Skin blisters involving the lateral and medial aspect of the knee) Neurological: Reports as per HPI, Reports gait dysfunction, Reports weakness Psychiatric: Reports as per HPI Endocrine: Reports as per HPI Hematologic/Lymphatic: Reports as per HPI Allergic/Immunologic: Reports as per HPI Past Medical History Past Medical History: CVA/TIA (CVA in 2015), Hyperlipidemia, Osteoarthritis (OA) Additional Past Medical History / Comment(s): CVA 2015-STILL HAS SOME RESIDUAL TINGLING IN FINGERS History of Any Multi-Drug Resistant Organisms: None Reported Past Surgical History: Joint Replacement, Orthopedic Surgery (Right knee replacement) Additional Past Surgical History / Comment(s): BILAT CATARACTS REMOVED WITH LENS IMPLANTS. COLONOSCOPY Past Anesthesia/Blood Transfusion Reactions: No Reported Reaction Past Psychological History: No Psychological Hx Reported Smoking Status: Former smoker Past Alcohol Use History: None Reported Past Drug Use History: None Reported - Past Family History Father History Unknown: Yes Family Medical History: No Reported History Mother History Unknown: Yes Medications and Allergies Home Medications Medication Instructions Recorded Confirmed Type Atorvastatin [Lipitor] 40 mg PO HS 02/17/21 02/27/21 History Fexofenadine HCl 180 mg PO DAILY 02/17/21 02/27/21 History Fluticasone Nasal [place] [Flonase 2 spray EA NOSTRIL DAILY PRN 02/17/21 02/27/21 History Nasal [place]] Furosemide [Lasix] 20 mg PO DAILY 02/17/21 02/27/21 History Losartan [Cozaar] 25 mg PO DAILY 02/17/21 02/27/21 History Metoprolol Succinate (ER) [Toprol 25 mg PO DAILY 02/17/21 02/27/21 History XL] Warfarin [Coumadin] 5 mg PO SUTUWETHSA@1700 02/17/21 02/27/21 History Docusate [Colace] 100 mg PO DAILY #30 cap 02/21/21 02/27/21 Rx Enoxaparin [Lovenox] 30 mg SQ DAILY #7 each 02/21/21 02/27/21 Rx HYDROcodone/APAP 7.5-325MG [[place] 1 each PO Q6HR PRN #28 tab 02/21/21 02/27/21 Rx 7.5] Cephalexin [Keflex] 500 mg PO Q6HR #40 cap 02/24/21 02/27/21 Rx Benzonatate [Tessalon Perles] 200 mg PO Q8HR PRN 02/27/21 02/27/21 History Ferrous Sulfate [Iron (65 MG 325 mg PO DAILY 02/27/21 02/27/21 History Elemental)] Pregabalin [Lyrica] See Taper PO DIRECTED 02/27/21 02/27/21 History Warfarin [Coumadin] 7.5 mg PO MOFR@1700 02/27/21 02/27/21 History Allergies Allergy/AdvReac Type Severity Reaction Status Date / Time No Known Allergies Allergy Verified 02/27/21 17:27 Physical Exam Vitals: Vital Signs Temp Pulse Pulse Resp BP BP Pulse Ox 02/28/21 09:05 98.1 F 78 18 110/66 96 02/28/21 01:57 99.4 F 81 18 106/67 96 02/27/21 20:30 98.1 F 77 16 124/72 97 02/27/21 17:46 98.8 F 74 16 126/76 96 Intake and Output 02/27/21 02/28/21 02/28/21 22:59 06:59 14:59 Intake Total 760 Output Total 700 Balance 60 Intake: Intake, IV Titration 500 Amount ceFAZolin 2 gm In Sodium 500 Chloride 0.9% 50 ml @ 100 mls/hr IVPB Q8HR [facility] Rx# :[id number] Oral 260 Output: Urine 700 Other: Voiding Method Toilet # Voids 2 Weight 117.934 kg The patient appears calm and comfortable and is not in acute distress at this point in time. GENERAL APPEARANCE: [The patient is calm and comfortable.] HEENT: [EOMI and PERRLA. No scleral icterus. TMs are clear. Oral mucosa is pink, moist, and non-erythematous.] NECK: Neck is supple and the patient has no significant lymphadenopathy, goiter or jugular venous distention. CARDIOVASCULAR: PMI non-displaced. Normal S1, S2. No gallops. No murmur. LUNGS: Patient has crackles in the mid and lower lung his bilaterally ABDOMEN: Soft and nontender with positive bowel sounds. No masses/organomegaly. SKIN: No lesions. No ulcers, no wounds, no rashes. EXTREMITIES: The right lower extremity is swollen below the knee and there is also erythema extending from the knee all the way down to the ankle involving the knee. The patient has postop changes involving the right knee and the one site is dry clean and intact. No evidence of any drainage from the surgical wound site over the right knee. The patient has 2 large blisters on the lateral and the posterior aspect of the knee and the patient also has increased edema in the right lower extremity with some areas of fluid weeping from the skin especially in the size of the esters. There is erythema and some warmth consisted of cellulitis. Plantarflexion and dorsiflexion is within normal limits. Gentle passive motion of the knee reveals no pain. There is notable sw elling of the right lower extremity including the Yakov ankle. Sensory functions are within normal limits. Neurologic: Patient is awake and oriented and the neurologic exam is essentially nonfocal Skeletal: No deformities, no active arthritis, full range of motion. Abnormalities of the right knee and the right lower extremity were noted above. Results - Laboratory Findings CBC and BMP: 02/28/21 04:54 02/28/21 04:53 PT/INR, D-dimer PT 16.7 sec (9.9-11.9) H 02/28/21 04:53 INR 1.58 (0.90-1.11) H 02/28/21 04:53 Abnormal lab findings: Abnormal Labs 02/27/21 02/27/21 02/27/21 12:27 12:27 12:27 WBC 13.7 H RBC 2.95 L Hgb 9.2 L Hct 27.9 L MCV MCHC RDW Immature Gran # Neutrophils # 10.4 H Monocytes # Eosinophils # PT 17.0 H INR 1.7 H APTT 30.9 H Sodium 134 L Glucose 111 H Calcium 8.2 L AST 79 H ALT 94 H Lactate Dehydrogenase C-Reactive Protein 15.6 H Albumin 2.9 L 02/28/21 02/28/21 02/28/21 04:53 04:53 04:53 WBC RBC Hgb Hct MCV MCHC RDW Immature Gran # Neutrophils # Monocytes # Eosinophils # PT 16.7 H INR 1.58 H APTT Sodium 134 L Glucose Calcium 7.9 L AST ALT Lactate Dehydrogenase 341 H C-Reactive Protein Albumin 02/28/21 04:54 WBC 10.88 H RBC 2.45 L Hgb 7.3 L Hct 23.8 L MCV 97.1 H MCHC 30.7 L RDW 15.6 H Immature Gran # 0.09 H Neutrophils # Monocytes # 1.27 H Eosinophils # 0.47 H PT INR APTT Sodium Glucose Calcium AST ALT Lactate Dehydrogenase C-Reactive Protein Albumin - Diagnostic Findings Chest x-ray: image reviewed CT scan - chest: image reviewed Assessment and Plan Plan: 1 right lower extremity swelling/cellulitis with skin blistering. This occurred post right knee arthroplasty. indication of any underlying septic arthritis involving the right knee. surgical site of the right knee is dry clean and int act and patient is currently on iv cefazolin 2 chronic interstitial lung disease involving the lungs bilaterally more so in the lower lobes in addition to evidence of mediastinal lymphadenopathy. Fi ndings are suspicious for previous history of sarcoidosis. The patient may be also considered for atypical mycobacterium infection. Malignancy is felt to be less likely including malignancy such as lymphoma. Other causes of interstitial lung disease cannot be completely ruled out. Nevertheless, the patient is essentially asymptomatic. Has some limited cough and a chronic basis. No worsening shortness of breath and no hypoxemia. 3 obesity 4 hyperlipidemia 5 history of CVA back in 2015 Plan Abnormalities on the chest x-ray and a CAT scan of the chest was noted. The various possibilities within differential diagnosis discussed with the patient had fortunately, the patient is not having any significant respiratory difficulties and this can be worked up on outpatient basis. He will need blood work , PFT, and a bronchoscopy with bronchiolar lavage her chest bronchial biopsies and transbronchial needle aspirate of the mediastinal lymph nodes. Obviously, the priority is for now to deal with a right lower extremity infection/cellulitis and the patient will need a close orthopedic monitoring regarding any further complications related to the right knee arthroplasty. Outpatient indication be resumed. We'll continue to follow. He is currently on room air oxygen. No signs of any respiratory distress. Discussed the possibilities and he will see her back in a follow-up in the office to discuss further treatment options or diagnostic options regarding his lung findings once the right lower extremity complications are further stabilizes or treated. We'll continue to follow.
--- NOTE | 2021-02-28 16:01 | ECHOF ---
Referral Reason:LE edema MEASUREMENTS -------- HEIGHT: 180.3 cm WEIGHT: 117.9 kg BP: 100/67 IVSd: 1.3 cm (0.6 - 1.1) LVIDd: 5.1 cm (3.9 - 5.3) LVPWd: 1.6 cm (0.6 - 1.1) EDV(Teich): 122 ml IVSs: 2.2 cm LVIDs: 3.1 cm LVPWs: 2.2 cm %IVS Thck: 66 % ESV(Teich): 38 ml EF(Teich): 69 % %FS: 39 % SV(Teich): 84 ml LVOT Diam: 1.3 cm Ao Diam: 3.8 cm (2.0 - 3.7) LA Diam: 3.9 cm (2.7 - 3.8) AV Cusp: 1.7 cm (1.5 - 2.6) EPSS: 2.9 cm MV E Lam: 0.74 m/s MV DecT: 200 ms MV Dec Tunica: 3.7 m/s MV A Lam: 0.62 m/s MV E/A Ratio: 1.19 MV PHT: 58 ms MR Vmax: 1.78 m/s MR maxP.60 mmHg LVOT Vmax: 0.93 m/s LVOT maxP.44 mmHg AV Vmax: 4.34 m/s AV maxP.35 mmHg FREDERICK Vmax, Pt: 0.3 cm AV Vmax: 4.55 m/s AV Vmean: 3.65 m/s AV maxP.87 mmHg AV meanP.44 mmHg AV Env.Ti: 275 ms AV VTI: 100.2 cm FREDERICK Vmax, Pt: 0.3 cm AR Vmax: 2.87 m/s AR maxP.89 mmHg AR PHT: 838 ms AR Dec Time: 2890 ms AR Dec Tunica: 1.0 m/s TR Vmax: 2.71 m/s TR maxP.47 mmHg RAP: 5.00 mmHg RVSP: 34.47 mmHg MV EF SLOPE: 81.21 mm/s (70 - 150) MV EXCURSION: 14.84 mm (> 18.000) FINDINGS -------- This was a technically difficult study with suboptimal views. The left ventricular size is normal. There is moderate concentric left ventricular hypertrophy. O verall left ventricular systolic function is normal with, an EF between 55 - 60 %. The right ventricle is normal in size. The left atrial size is normal. The right atrial size is normal. Lumason used Aortic valve is trileaflet and is moderately thickened. There is mild aortic regurgitation. There is severe aortic stenosis present. Peak/mean gradient across the Aortic Valve is 82.87mmHg / 57.44 mmHg. AOV is possible Bicuspid. The mitral valve leaflets are mildly thickened. Mild mitral regurgitation is present. The tricuspid valve appears structurally normal. Mild tricuspid regurgitation present. Right vent ricular systolic pressure is normal at < 35 mmHg. There is no pulmonic regurgitation present. The aortic root size is normal. IVC Not well visulized. There is no pericardial effusion. CONCLUSIONS -------- 1. The left ventricular size is normal. 2. There is moderate concentric left ventricular hypertrophy. 3. Overall left ventricular systolic function is normal with, an EF between 55 - 60 %. 4. Aortic valve is trileaflet and is moderately thickened. 5. There is mild aortic regurgitation. 6. There is severe aortic stenosis present. 7. Peak/mean gradient across the Aortic Valve is 82.87mmHg / 57.44mmHg. 8. AOV is possible Bicuspid. 9. Mild mitral regurgitation is present. 10. Mild tricuspid regurgitation present. DINKING MACHINE OPERATOR: Whitney Moses [facility]
--- NOTE | 2021-02-28 16:42 | P.PN ---
Subjective Progress Note Date: 02/28/21 Principal diagnosis: Right lower extremity edema, right lower extremity cellulitis, history of right total knee arthroplasty Patient was examined today on a few different occasions, the is present at bedside on the second visit. He is progressing well at this time. He has been evaluated by pulmonology, infectious disease and internal medicine. Patient has been on IV antibiotics for the cellulitis and seems to be responding. Pulmonology is recommending follow-up and evaluation in the outpatient setting for abnormal findings on this CAT scan. With regards to the right knee, he has noticed no acute complaints. She's been ambulating and doing basic bedside exercises no difficulty. He denies any fevers or chills at this time. Objective - Vital Signs Vital signs: Vital Signs Temp 98.8 F 02/28/21 15:59 Pulse 80 02/28/21 15:59 Resp 18 02/28/21 15:59 BP 110/59 02/28/21 15:59 Pulse Ox 96 02/28/21 15:59 Intake & Output 02/27/21 02/28/21 02/28/21 18:59 06:59 18:59 Intake Total 760 Output Total 700 Balance 60 Weight 117.934 kg Intake: Intake, IV Titration 500 Amount ceFAZolin 2 gm In Sodium 500 Chloride 0.9% 50 ml @ 100 mls/hr IVPB Q8HR [facility] Rx# :[id number] Oral 260 Output: Urine 700 Other: Voiding Method Toilet # Voids 2 1 - Exam Right lower extremity: Optifoam dressing is in good position and condition, no blistering noted witt rrounding the borders of the dressing. Both the medial and lateral blisters are covered with Opteform dressings. The remaining extremity is wrapped in an Mikael bandage at this time Plantar flexion, dorsiflexion, EHL, FHL are intact Gentle passive motion of the knee reproduces no pain, active motion of the patient's knee reproduces no significant pain Logroll maneuver the hip reproduces no pain There is notable swelling in the calf,negative tenderness with palpation. Negative Homans test. Sensory exam to light touch is intact throughout the extremity, the skin is warm to touch. - Labs CBC & Chem 7: 02/28/21 04:54 02/28/21 04:53 Labs: Abnormal Lab Results - Last 24 Hours (Table) 02/28/21 02/28/21 02/28/21 Range/Units 04:53 04:53 04:53 WBC (4.50-10.00) X 10*3/uL RBC (4.40-5.60) X 10*6/uL Hgb (13.0-17.0) g/dL Hct (39.6-50.0) % MCV (80.0-97.0) fL MCHC (32.0-37.0) g/dL RDW (11.5-14.5) % Immature Gran # (0.00-0.04) X 10*3/uL Monocytes # (0.20-1.00) X 10*3/uL Eosinophils # (0.04-0.35) X 10*3/uL PT 16.7 H (9.9-11.9) sec INR 1.58 H (0.90-1.11) Sodium 134 L (135-145) mmol/L Calcium 7.9 L (8.7-10.3) mg/dL Lactate Dehydrogenase 341 H (120-246) U/L 02/28/21 Range/Units 04:54 WBC 10.88 H (4.50-10.00) X 10*3/uL RBC 2.45 L (4.40-5.60) X 10*6/uL Hgb 7.3 L (13.0-17.0) g/dL Hct 23.8 L (39.6-50.0) % MCV 97.1 H (80.0-97.0) fL MCHC 30.7 L (32.0-37.0) g/dL RDW 15.6 H (11.5-14.5) % Immature Gran # 0.09 H (0.00-0.04) X 10*3/uL Monocytes # 1.27 H (0.20-1.00) X 10*3/uL Eosinophils # 0.47 H (0.04-0.35) X 10*3/uL PT (9.9-11.9) sec INR (0.90-1.11) Sodium (135-145) mmol/L Calcium (8.7-10.3) mg/dL Lactate Dehydrogenase (120-246) U/L Assessment and Plan Assessment: Right lower extremity swelling Right lower extremity blisters Right lower extremity cellulitis History of recent right total knee arthroplasty, low concern for septic arthropathy Other medical comorbidities Plan: With regards to the right knee, he continues to be stable showing no acute signs of a septic arthropathy. We will change the operative foam dressing in the next day or 2 for recheck. Infectious disease recommendations are appreciated for continuation of IV antibiotics Wound care is following patient, appreciate recommendations with regards to blister and local cellulitis treatment Pulmonology is recommended follow-up in the outpatient setting for further evalu ation of abnormal CT results, he remained stable with regards to his history status GI and DVT prophylaxis, Coumadin has been discontinued, patient remains on subcu medication. PT/OT evaluation Pain control, oral medications have been restarted We will continue to follow patient during inpatient stay Time with Patient: Less than 30
[2021-02-28] MEDS: ATORVASTATIN 40 MG TAB PO SCH (20:05)
[2021-03-01] MEDS: METOPROLOL SUCCINATE (ER) 25 MG TAB.ER.24H PO SCH (07:24)
[2021-03-01] MEDS: FUROSEMIDE 20 MG TAB PO SCH (07:24)
[2021-03-01] MEDS: FERROUS SULFATE 325 MG TAB PO SCH (07:25)
[2021-03-01] MEDS: PREGABALIN 75 MG CAP PO SCH (07:25)
[2021-03-01] MEDS: DOCUSATE 100 MG CAP PO SCH (07:25)
[2021-03-01] MEDS: ENOXAPARIN 40 MG/0.4 ML SYRINGE SQ SCH (07:25)
[2021-03-01] MEDS: LOSARTAN 25 MG TAB PO SCH (07:25)
[2021-03-01 09:17] LABS: African American GFR (CKD) >90 (>60 ml/min/1.73 sqM); Anion Gap 7 mmol/L; Blood Urea Nitrogen 12 mg/dL (9-20); Calcium 8.4 mg/dL (8.4-10.2); Carbon Dioxide 26 mmol/L (22-30); Chloride 101 mmol/L (98-107); Glucose 124 mg/dL (74-99); Non-African American GFR(CKD) 87 (>60 ml/min/1.73 sqM); Potassium 3.9 mmol/L (3.5-5.1); Sodium 134 mmol/L (137-145)
[2021-03-01 09:20] LABS: HCT 26.8 % (39.0-53.0); HGB 8.5 gm/dL (13.0-17.5); MCH 30.6 pg (25.0-35.0); MCHC 31.9 g/dL (31.0-37.0); MCV 96.1 fL (80.0-100.0); Mean Platelet Volume 7.4; Platelet Count 409 k/uL (150-450); RBC 2.79 m/uL (4.30-5.90); RDW 14.9 % (11.5-15.5); WBC 10.1 k/uL (3.8-10.6)
--- NOTE | 2021-03-01 09:48 | P.PN ---
Subjective Progress Note Date: 03/01/21 Principal diagnosis: Right lower extremity edema, right lower extremity cellulitis, history of right total knee arthroplasty Patient was examined today this morning at bedside. She was resting comfortably in his hospital chair. Patient states that he is feeling better, he feels that the swelling is improving in the leg. Patient was seen by wound care yesterday and Mikael bandages place with a few different treatment modalities. A silver dressing is being utilized on the blistering on the medial and lateral aspects of the knee, and a triad ointment along with Mikael wrap and ABDs fixation of the lower leg cellulitic component. With regards to the right knee, he notices continuous improvement. The operative phone dressing was placed on 02/27/2021 is still intact. This will likely be changed tomorrow at bedside. He has noticed no worsening pain with the knee especially with both active and passive motion. He denies any fevers or chills at this time. Objective - Vital Signs Vital signs: Vital Signs Temp 99.0 F 03/01/21 08:00 Pulse 74 03/01/21 08:00 Resp 18 03/01/21 08:00 BP 112/62 03/01/21 08:00 Pulse Ox 97 03/01/21 08:00 Intake & Output 02/28/21 03/01/21 03/01/21 18:59 06:59 18:59 Intake Total 720 200 Balance 720 200 Intake: Oral 720 200 Other: Voiding Method Toilet Toilet # Voids 2 1 # Bowel Movements 1 1 - Exam Right lower extremity: Optifoam dressing is in good position and condition, no blistering noted surrounding the borders of the dressing. Dressings were removed at bedside today, the 2 large blisters on the medial and lateral aspects of the knee are stable, the top layer of skin is still intact with necrotic features. The skin below appears well-perfused no obvious pu rulence appreciated. Triad cream is present throughout remaining lower extremity, the erythema and swelling seems much improved. The blistering in the proximal right lower extremity where the pain pump was placed it is healing, there is scab noted in the area. No obvious fluctuance or obvious drainage appreciated. Plantar flexion, dorsiflexion, EHL, FHL are intact Gentle passive motion of the knee reproduces no pain, active motion of the patient's knee reproduces no significant pain Logroll maneuver the hip reproduces no pain There is notable swelling in the calf,negative tenderness with palpation. Negative Homans test. Sensory exam to light touch is intact throughout the extremity, the skin is warm to touch. - Labs CBC & Chem 7: 03/01/21 08:34 03/01/21 08:34 Labs: Abnormal Lab Results - Last 24 Hours (Table) 02/28/21 02/28/21 02/28/21 Range/Units 04:53 04:53 04:53 WBC (4.50-10.00) X 10*3/uL RBC (4.40-5.60) X 10*6/uL Hgb (13.0-17.0) g/dL Hct (39.6-50.0) % MCV (80.0-97.0) fL MCHC (32.0-37.0) g/dL RDW (11.5-14.5) % Immature Gran # (0.00-0.04) X 10*3/uL Monocytes # (0.20-1.00) X 10*3/uL Eosinophils # (0.04-0.35) X 10*3/uL PT 16.7 H (9.9-11.9) sec INR 1.58 H (0.90-1.11) Sodium 134 L (135-145) mmol/L Glucose (74-99) mg/dL Calcium 7.9 L (8.7-10.3) mg/dL Lactate Dehydrogenase 341 H (120-246) U/L 02/28/21 03/01/21 03/01/21 Range/Units 04:54 08:34 08:34 WBC 10.88 H (4.50-10.00) X 10*3/uL RBC 2.45 L 2.79 L (4.40-5.60) X 10*6/uL Hgb 7.3 L 8.5 L (13.0-17.0) g/dL Hct 23.8 L 26.8 L (39.6-50.0) % MCV 97.1 H (80.0-97.0) fL MCHC 30.7 L (32.0-37.0) g/dL RDW 15.6 H (11.5-14.5) % Immature Gran # 0.09 H (0.00-0.04) X 10*3/uL Monocytes # 1.27 H (0.20-1.00) X 10*3/uL Eosinophils # 0.47 H (0.04-0.35) X 10*3/uL PT (9.9-11.9) sec INR (0.90-1.11) Sodium 134 L (135-145) mmol/L Glucose 124 H (74-99) mg/dL Calcium (8.7-10.3) mg/dL Lactate Dehydrogenase (120-246) U/L Assessment and Plan Assessment: Right lower extremity swelling Right lower extremity blisters Right lower extremity cellulitis History of recent right total knee arthroplasty, low concern for septic arthropathy Other medical comorbidities Plan: With regards to the right knee, he continues to be stable showing no acute signs of a septic arthropathy. We'll change out home dressing over surgical incision tomorrow. Infectious disease recommendations are appreciated for continuation of IV antibiotics Wound care is following patient, appreciate recommendations with regards to blister and local cellulitis treatment. Patient would benefit greatly from usp wound care checks at home and also follow-up with wound care in the outpatient setting GI and DVT prophylaxis, Coumadin has been discontinued, patient remains on subcu medication. PT/OT evaluation Pain control, oral medications have been restarted Will return to internal medicine today regarding possible transfer of primary service Discharge planning: Would recommend at least another 2 days of inpatient treatment, this also provide time to set up all in-home services. We will continue to follow patient during hospital stay Time with Patient: Less than 30
[2021-03-01] MEDS: NEOMYCIN-BACITRACIN-POLY OINT 14 GM TUBE TOPICAL SCH (10:59)
--- NOTE | 2021-03-01 12:51 | P.PN ---
Subjective Progress Note Date: 03/01/21 On today's evaluation of 03/01/2021, the patient has no active respirator complaints other than his chronic cough. His right lower extremity; is improving and the patient is under the care of infectious disease and orthopedic surgery. No fever. No chills. No night sweats. No hemodynamic instability. As mentioned earlier, the workup for his lung disease will be done on outpatient basis including a PFT and possible bronchoscopy once the patient is fully recovered. Objective - Vital Signs Vital signs: Vital Signs Temp 99.0 F 03/01/21 08:00 Pulse 74 03/01/21 08:00 Resp 18 03/01/21 08:00 BP 112/62 03/01/21 08:00 Pulse Ox 97 03/01/21 08:00 Intake & Output 02/28/21 03/01/21 03/01/21 18:59 06:59 18:59 Intake Total 720 200 Balance 720 200 Intake: Oral 720 200 Other: Voiding Method Toilet Toilet # Voids 2 1 # Bowel Movements 1 1 - Exam The patient appears calm and comfortable and is not in acute distress at this point in time. GENERAL APPEARANCE: [The patient is calm and comfortable.] HEENT: [EOMI and PERRLA. No scleral icterus. TMs are clear. Oral mucosa is pink, moist, and non-erythematous.] NECK: Neck is supple and the patient has no significant lymphadenopathy, goiter or jugular venous distention. CARDIOVASCULAR: PMI non-displaced. Normal S1, S2. No gallops. No murmur. LUNGS: Patient has crackles in the mid and lower lung his bilaterally ABDOMEN: Soft and nontender with positive bowel sounds. No mas ses/organomegaly. SKIN: No lesions. No ulcers, no wounds, no rashes. EXTREMITIES: The right lower extremity is swollen below the knee and there is also erythema extending from the knee all the way down to the ankle involving the knee. The patient has postop changes involving the right knee and the one site is dry clean and intact. No evidence of any drainage from the surgical wound site over the right knee. The patient has 2 large blisters on the lateral and the posterior aspect of the knee and the patient also has increased edema in the right lower extremity with some areas of fluid weeping from the skin especially in the size of the esters. There is erythema and some warmth consist ed of cellulitis. Plantarflexion and dorsiflexion is within normal limits. Gentle passive motion of the knee reveals no pain. There is notable swelling of the right lower extremity including the Yakov ankle. Sensory functions are within normal limits. Neurologic: Patient is awake and oriented and the neurologic exam is essentially nonfocal Skeletal: No deformities, no active arthritis, full range of motion. Abnormalities of the right knee and the right lower extremity were noted above. Results - Labs CBC & Chem 7: 03/01/21 08:34 03/01/21 08:34 Labs: Abnormal Lab Results - Last 24 Hours (Table) 02/28/21 03/01/21 03/01/21 Range/Units 04:53 08:34 08:34 RBC 2.79 L (4.30-5.90) m/uL Hgb 8.5 L (13.0-17.5) gm/dL Hct 26.8 L (39.0-53.0) % Sodium 134 L (137-145) mmol/L Glucose 124 H (74-99) mg/dL Angiotensin Convert Enz 7 L (8-52) U/L Microbiology - Last 24 Hours (Table) 02/28/21 07:51 Blood Culture - Preliminary Blood No Growth after 24 hours Assessment and Plan Plan: 1 right lower extremity swelling/cellulitis with skin blistering. This occurred post right knee arthroplasty. indication of any underlying septic arthritis involving the right knee. surgical site of the right knee is dry clean and intact and patient is currently on iv cefazolin the patient is clinically improving 2 chronic interstitial lung disease involving the lungs bilaterally more so in the lower lobes in addition to evidence of mediastinal lymphadenopathy. Findings are suspicious for previous history of sarcoidosis. The patient may be also considered for atypical mycobacterium infection. Malignancy is felt to be less likely including malignancy such as lymphoma. Other causes of interstitial lung disease cannot be completely ruled out. Nevertheless, the patient is e ssentially asymptomatic. Has some limited cough and a chronic basis. No worsening shortness of breath and no hypoxemia. 3 obesity 4 hyperlipidemia 5 history of CVA back in 2015 Plan Abnormalities on the chest x-ray and a CAT scan of the chest was noted. The various possibilities within differential diagnosis discussed with the patient had fortunately, the patient is not having any significant respiratory difficulties and this can be worked up on outpatient basis. He will need blood work , PFT, and a bronchoscopy with bronchiolar lavage her chest bronchial biopsies and transbronchial needle aspirate of the mediastinal lymph nodes. Obviously, the priority is for now to deal with a right lower extremity infection/cellulitis and the patient will need a close orthopedic monitoring reg arding any further complications related to the right knee arthroplasty. Outpatient indication be resumed. We'll continue to follow. He is currently on room air oxygen. No signs of any respiratory distress. Discussed the possibilities and he will see her back in a follow-up in the office to discuss further treatment options or diagnostic options regarding his lung findings once the right lower extremity complications are further stabilizes or treated. The patient is improving in terms of his electrolytes of the right lower extremity. Overall pulmonary status is stable. I'm going to sign off the case and the patient can see him back on outpatient basis regarding his chronic ILD and wo rkup will be done on outpatient basis once his cellulitis of the right lower extremity has recovered.
--- NOTE | 2021-03-01 16:12 | P.PN ---
Subjective Progress Note Date: 03/01/21 Hospital course: Patient is a 70-year-old male with a past medical history CVA, hyperlipidemia, iron deficiency anemia and is status post right total knee arthroplasty on 02/20/21. Patient presented to the emergency department on 02/27/21 with a chief complaint of redness, swelling, and blisters to right lower extremity status post surgical procedure. Patient was admitted under orthopedic surgery and we were consulted for continued medical management. CT PE showing no evidence of pulmonary embolism however showing extensive patchy pulmonary peripheral infiltrates with mediastinal and bronchial adenopathy. Ultrasound right lower extremity positive for inguinal adenopathy with lymph node measuring 2.7 x 2.5 x 1.0 cm. On 02/28/21 orthopedic surgery transferred primary care over to our team for continued medical management and consult was placed to p ulmonology. Patient currently on IV antibiotics ceftriaxone pending further blood culture results and recommendations from infectious disease. Physical exam: Patient seen and fully evaluated at the bedside this morning. He is sitting up in recliner chair with footstool elevated and right leg further elevated on pillow. Patient reports pain is currently controlled. Denies experiencing any headache, lightheadedness, dizziness, chest pain, palpitations, shortness of breath, abdominal pain, nausea, vomiting, or any other complaints at this time. Patient remains on room air. Temp high over last 48 hours 99.0F , labs and vitals otherwise stable.. Vital signs reviewed and stable. General: Nontoxic, no distress and appears stated age. Derm: Skin warm and dry, normal coloration for ethnicity. Right lower extremity erythema and edema, dressing in place. Head: Atraumatic, normocephalic and symmetric. Eyes: EOMs intact, no lid lag, and anicteric sclera Mouth: no lip lesions, mucus membranes moist Cardiovascular: regular rate and rhythm with normal S1S2, no murmur, positive posterior tibial pulses bilaterally, and cap refill < 2 seconds. Lungs: Respirations even, regular, and unlabored on room air. Lungs CTA bilaterally, no rhonchi, no rales, no wheezing, and no accessory muscle usage. Abdominal: soft, nontender to palpation, no guarding, no appreciable organomegaly Ext: ROM intact. No gross muscle atrophy, no contractures Neuro: Speech clear, face symmetrical and CN II-XII grossly intact with no noted focal neuro deficits Psych: Alert and oriented to person, place, time, and situation. Appropriate and pleasant affect. Assessment and Plan of Care: Right lower extremity edema with Cellulitis Edema blisters Status post right total knee arthroplasty on 02/20/21 -Ortho team to continue following -Antibiotics per ID, ceftriaxone -BC's pending, currently showing no growth after 24 hours -Continue Lasix PO -Wound care consult recs appreciated Severe aortic stenosis Mild Mitral regurgitation Cardiomegaly -Echo revealing preserved EF 55-60% with severe aortic stenosis. -Lasix as above, 20 mg PO daily. Peripheral Pulmonary Fibrosis Mediastinal and Hilar Lymphadenopathy -Pulm consulted -Covid, influenza, and RSV negative. -likely outpatient bronch with biopsy and BAL -atypical pneumonia vs sarcoidosis, favor latter Iron deficiency anemia Hemoglobin stable at 8.5. We will continue to monitor with repeat a.m. labs. Hypertension History of CVA Hyperlipidemia Chronic blood thinner -Continue home meds -No clear indication for warfarin, therefore we'll discontinue at this time (read HPI in H&P for details) -once INR is below 1.5, can start patient on ASA 81mg and f/u to ensure no side effects CODE STATUS: Full code DVT prophylaxis: Lovenox Discussed with: Patient and RN Anticipated discharge date: Likely 1-[address]: Home with [facility] home care A total of 45 minutes was spent on the care of this complex patient more than 50% of the time was spent in counseling and care coordination. Objective - Vital Signs Vital signs: Vital Signs Temp 99.0 F 03/01/21 08:00 Pulse 74 03/01/21 08:00 Resp 18 03/01/21 08:00 BP 112/62 03/01/21 08:00 Pulse Ox 97 03/01/21 08:00 Intake & Output 02/28/21 03/01/21 03/01/21 18:59 06:59 18:59 Intake Total 720 200 Balance 720 200 Intake: Oral 720 200 Other: Voiding Method Toilet Toilet # Voids 2 1 # Bowel Movements 1 1 - Labs CBC & Chem 7: 03/01/21 08:34 03/01/21 08:34 Labs: Abnormal Lab Results - Last 24 Hours (Table) 02/28/21 02/28/21 02/28/21 Range/Units 04:53 04:53 04:53 WBC (4.50-10.00) X 10*3/uL RBC (4.40-5.60) X 10*6/uL Hgb (13.0-17.0) g/dL Hct (39.6-50.0) % MCV (80.0-97.0) fL MCHC (32.0-37.0) g/dL RDW (11.5-14.5) % Immature Gran # (0.00-0.04) X 10*3/uL Monocytes # (0.20-1.00) X 10*3/uL Eosinophils # (0.04-0.35) X 10*3/uL Sodium 134 L (135-145) mmol/L Glucose (74-99) mg/dL Calcium 7.9 L (8.7-10.3) mg/dL Lactate Dehydrogenase 341 H (120-246) U/L Angiotensin Convert Enz 7 L (8-52) U/L 02/28/21 03/01/21 03/01/21 Range/Units 04:54 08:34 08:34 WBC 10.88 H (4.50-10.00) X 10*3/uL RBC 2.45 L 2.79 L (4.40-5.60) X 10*6/uL Hgb 7.3 L 8.5 L (13.0-17.0) g/dL Hct 23.8 L 26.8 L (39.6-50.0) % MCV 97.1 H (80.0-97.0) fL MCHC 30.7 L (32.0-37.0) g/dL RDW 15.6 H (11.5-14.5) % Immature Gran # 0.09 H (0.00-0.04) X 10*3/uL Monocytes # 1.27 H (0.20-1.00) X 10*3/uL Eosinophils # 0.47 H (0.04-0.35) X 10*3/uL Sodium 134 L (135-145) mmol/L Glucose 124 H (74-99) mg/dL Calcium (8.7-10.3) mg/dL Lactate Dehydrogenase (120-246) U/L Angiotensin Convert Enz (8-52) U/L Microbiology - Last 24 Hours (Table) 02/28/21 07:51 Blood Culture - Preliminary Blood No Growth after 24 hours
--- NOTE | 2021-03-01 17:51 | PN ---
PROGRESS NOTE DATE OF SERVICE: 03/01/2021 REASON FOR FOLLOWUP: Right lower extremity cellulitis. INTERVAL HISTORY: The patient is afebrile. The patient is currently breathing comfortably. Denies any chest pain or shortness of breath or cough. Right lower extremity swelling and redness has decreased and drainage has decreased. PHYSICAL EXAMINATION: Blood pressure 119/62 with a pulse of 93, temperature 98.3. He is 93% on room air. General description is an elderly male lying in bed in no distress. RESPIRATORY SYSTEM: Unlabored breathing. Clear to auscultation anteriorly. HEART: S1, S2. Regular rate and rhythm. ABDOMEN: Soft. No tenderness. Right leg swelling and redness has slightly decreased. LABS: White count normalized to 10.1 DIAGNOSTIC IMPRESSION AND PLAN: Patient with acute right lower extremity cellulitis in this patient who did have extensive cellulitis, overall responding to the cefazolin; to continue. Transition to oral antibiotic on discharge and continue supportive care. MMODL / IJN: [id number] /
[2021-03-01] MEDS: ATORVASTATIN 40 MG TAB PO SCH (20:26)
[2021-03-01] MEDS: HYDROcodone/APAP 7.5-325MG 1 EACH TAB PO PRN (20:26)
[2021-03-02] MEDS: HYDROcodone/APAP 7.5-325MG 1 EACH TAB PO PRN (02:12)
[2021-03-02 02:14] VITALS: RESP 16
[2021-03-02 06:56] LABS: INR 1.1 (<1.2)
[2021-03-02 07:51] VITALS: BP 115/67; PULSE 75; TEMP 98.1
[2021-03-02] MEDS: FUROSEMIDE 20 MG TAB PO SCH (08:22)
[2021-03-02] MEDS: LOSARTAN 25 MG TAB PO SCH (08:22)
[2021-03-02] MEDS: METOPROLOL SUCCINATE (ER) 25 MG TAB.ER.24H PO SCH (08:22)
[2021-03-02] MEDS: ENOXAPARIN 40 MG/0.4 ML SYRINGE SQ SCH (08:22)
[2021-03-02] MEDS: PREGABALIN 75 MG CAP PO SCH (08:22)
[2021-03-02] MEDS: DOCUSATE 100 MG CAP PO SCH (08:22)
[2021-03-02] MEDS: FERROUS SULFATE 325 MG TAB PO SCH (08:22)
[2021-03-02] MEDS: NEOMYCIN-BACITRACIN-POLY OINT 14 GM TUBE TOPICAL SCH (08:23)
[2021-03-02 09:58] LABS: HCT 23.8 % (39.6-50.0); HGB 7.4 g/dL (13.0-17.0); MCH 29.7 pg (27.0-32.0); MCHC 31.1 g/dL (32.0-37.0); MCV 95.6 fL (80.0-97.0); Mean Platelet Volume 9.4 fL (9.5-12.2); Platelet Count 370 X 10*3/uL (140-440); RBC 2.49 X 10*6/uL (4.40-5.60); RDW 15.3 % (11.5-14.5); WBC 8.88 X 10*3/uL (4.50-10.00)
[2021-03-02] MEDS: HYDROPHILIC CREAM 180 GM TUBE TOPICAL SCH (11:03)
--- NOTE | 2021-03-02 13:16 | P.PN ---
Subjective Progress Note Date: 03/02/21 Principal diagnosis: Right lower extremity edema, right lower extremity cellulitis, history of right total knee arthroplasty Patient was seen at bedside this morning. Patient was resting comfortably sitting in chair with legs elevated. Patient says he is doing much better today as far as pain control. Patient says he thinks his radial home and like to get back to be getting physical therapy. Patient says he thinks the swelling in his leg is on down a bit since yesterday. Patient denies fever, chest pain, shortness of breath, nausea, vomiting, change in vision, loss of bowel control. Objective - Vital Signs Vital signs: Vital Signs Temp 98.1 F 03/02/21 07:51 Pulse 75 03/02/21 07:51 Resp 16 03/02/21 07:51 BP 115/67 03/02/21 07:51 Pulse Ox 98 03/02/21 07:51 Intake & Output 03/01/21 03/02/21 03/02/21 18:59 06:59 18:59 Intake Total 600 Balance 600 Intake: Oral 600 Other: Voiding Method Toilet Toilet # Voids 3 1 - Exam Right lower extremity: Opitfoam dressing was removed. no blistering noted surrounding the borders of the dressing. Incisions clean, dry, intact. New optifoam dressing was placed over the incision. the 2 large blisters on the medial and lateral aspects of the knee are stable, the top layer of skin is still intact with necrotic features. The skin below appears well-perfused no obvious purulence appreciated. the erythema and swelling has improved passive motion of the knee reproduces no pain, active motion of the patient's knee reproduces no significant pain There is moderate swelling in the calf,negative tenderness with palpation. Negative Homans test. Patient is able to flex and extend digits and right foot as well as dorsi and plantarflex ankle without being in pain. Neurovascular status - Refill under 3 seconds bilaterally and digits of foot. DP pulses intact, 2+ bilaterally - Labs CBC & Chem 7: 03/02/21 05:59 03/01/21 08:34 Labs: Abnormal Lab Results - Last 24 Hours (Table) 03/02/21 Range/Units 05:59 RBC 2.49 L (4.40-5.60) X 10*6/uL Hgb 7.4 L (13.0-17.0) g/dL Hct 23.8 L (39.6-50.0) % MCHC 31.1 L (32.0-37.0) g/dL RDW 15.3 H (11.5-14.5) % MPV 9.4 L (9.5-12.2) fL Microbiology - Last 24 Hours (Table) 02/28/21 07:51 Blood Culture - Preliminary Blood No Growth after 48 hours Assessment and Plan Assessment: 1. Right lower extremity swelling 2. Right lower extremity blisters 3. Right lower extremity cellulitis 4. History of recent right total knee arthroplasty, low concern for septic arthropathy Plan: 1. Right lower extremity blisters, swelling, cellulitis; recent history of right total knee arthroplasty - optifoam dressing was changed at bedside today. Patient is stable from an orthopedic standpoint for discharge home. Do not recommend any urgent orthopedic surgical intervention at this time. Continue with in-home physical therapy. Follow-up in the office next week for first post operative visit 2. Appreciate medical management, ID management, wound care management - upon discharge patient is being sent home with oral antibiotic. Patient follow-up wound care clinic for weeping wounds on right lower extremity and dressing changes 3. Pain management - [place] 7.5 mg/325 mg; Lyrica 4. DVT prophylaxis - Lovenox 5. GI prophylaxis - Colace 6. PT/OT - weightbearing as tolerated with walker for assistance 7. Discharge planning - orthopedics signing off. Patient may be discharged home today pending approval from medicine, ID Time with Patient: Less than 30
--- NOTE | 2021-03-02 14:55 | P.DS ---
<Nixon Cunningham - Last Filed: 03/02/21 14:56> Providers Expected date of discharge: 03/02/21 Hospital Course: Discharge Diagnosis: Right lower extremity edema with Cellulitis with edema blisters status post right total knee arthroplasty on 02/20/21 Severe aortic stenosis Mild Mitral regurgitation Cardiomegaly Peripheral Pulmonary Fibrosis Mediastinal and Hilar Lymphadenopathy Iron deficiency anemia Hypertension History of CVA Hyperlipidemia Hospital Course: Patient is a 70-year-old male with a past medical history CVA, hyperlipidemia, iron deficiency anemia and is status post right total knee arthroplasty on 02/20/21. Patient presented to the emergency department on 02/27/21 with a chief complaint of redness, swelling, and blisters to right lower extremity status post surgical procedure. Patient was admitted under orthopedic surgery and we were consulted for continued medical management. CT PE showing no evidence of pulmonary embolism however showing extensive patchy pulmonary perip heral infiltrates with mediastinal and bronchial adenopathy. Ultrasound right lower extremity positive for inguinal adenopathy with lymph node measuring 2.7 x 2.5 x 1.0 cm. Echo revealing preserved EF 55-60% with severe aortic stenosis. Pulmonology consulted for findings of mediastinal and hilar lymphadenopathy. Covid, influenza, and RSV negative. On 02/28/21 orthopedic surgery transferred primary care over to our team for continued medical management and infectious disease consulted. Patient received IV antibiotics Rocephin. Cultures showing no growth x 48 hrs. Pulmonary recommending outpatient workup for further evaluation of lung disease including PFTs and possible bronchoscopy once patient is fully recovered. Infectious disease recommending discharge home on Keflex 10 days. Patient is medically stable for discharge at this time. Patient being discharged home on aspirin 325 mg daily for DVT prophylaxis as recommended by orthopedic surgery. Coumadin and Lovenox have been discontinued. Patient to follow up outpatient with orthopedic surgery, infectious disease at wound care clinic, cardiology for continued monitoring of severe aortic stenosis, pulmonology for further evaluation of lung disease, and primary care provider. Prescriptions for Keflex and aspirin sent to [facility] as patient requested. Patient being discharged home with [facility]. Physical exam: Patient seen and fully evaluated at the bedside this morning. He is sitting up in recliner chair. Patient reports feeling great this morning and states pain is currently controlled. Denies experiencing any headache, lightheadedness, dizziness, chest pain, palpitations, shortness of breath, abdominal pain, nausea, vomiting, or any other complaints at this time. Vital signs reviewed and stable. General: Nontoxic, no distress and appears stated age. Derm: Skin warm and dry, normal coloration for ethnicity. Right lower extremity erythema and edema, dressing in place. Head: Atraumatic, normocephalic and symmetric. Eyes: EOMs intact, no lid lag, and anicteric sclera Mouth: no lip lesions, mucus membranes moist Cardiovascular: regular rate and rhythm with normal S1S2, no murmur, positive posterior tibial pulses bilaterally, and cap refill < 2 seconds. Lungs: Respirations even, regular, and unlabored on room air. Lungs CTA bilaterally, no rhonchi, no rales, no wheezing, and no accessory muscle usage. Abdominal: soft, nontender to palpation, no guarding, no appreciable organomegaly Ext: ROM intact. No gross muscle atrophy, no contractures Neuro: Speech clear, face symmetrical and CN II-XII grossly intact with no noted focal neuro deficits Psych: Alert and oriented to person, place, time, and situation. Appropriate and pleasant affect. A total of 45 minutes of time were spent preparing this complex discharge summary. Patient Condition at Discharge: Stable Plan - Discharge Summary Discharge Rx Participant: Yes New Discharge Prescriptions: New Aspirin 325 mg PO DAILY 30 Days #30 tab Continue Furosemide [Lasix] 20 mg PO DAILY Metoprolol Succinate (ER) [Toprol XL] 25 mg PO DAILY Docusate [Colace] 100 mg PO DAILY #30 cap HYDROcodone/APAP 7.5-325MG [[place] 7.5-325] 1 each PO Q6HR PRN #28 tab PRN Reason: Pain Pregabalin [Lyrica] See Taper PO DIRECTED Ferrous Sulfate [Iron (65 MG Elemental)] 325 mg PO DAILY Fluticasone Nasal [place] [Flonase Nasal [place]] 2 spray EA NOSTRIL DAILY PRN PRN Reason: Allergy Symptoms Losartan [Cozaar] 25 mg PO DAILY Atorvastatin [Lipitor] 40 mg PO HS Fexofenadine HCl 180 mg PO DAILY Benzonatate [Tessalon Perles] 200 mg PO Q8HR PRN PRN Reason: Cough Cephalexin [Keflex] 500 mg PO Q6HR 10 Days #40 cap Discontinued Warfarin [Coumadin] 5 mg PO SUTUWETHSA@1700 Enoxaparin [Lovenox] 30 mg SQ DAILY #7 each Warfarin [Coumadin] 7.5 mg PO MOFR@1700 Discharge Medication List Atorvastatin [Lipitor] 40 mg PO HS 02/17/21 [History] Fexofenadine HCl 180 mg PO DAILY 02/17/21 [History] Fluticasone Nasal [place] [Flonase Nasal [place]] 2 spray EA NOSTRIL DAILY PRN 02/17/21 [History] Furosemide [Lasix] 20 mg PO DAILY 02/17/21 [History] Losartan [Cozaar] 25 mg PO DAILY 02/17/21 [History] Metoprolol Succinate (ER) [Toprol XL] 25 mg PO DAILY 02/17/21 [History] Docusate [Colace] 100 mg PO DAILY #30 cap 02/21/21 [Rx] HYDROcodone/APAP 7.5-325MG [[place] 7.5-325] 1 each PO Q6HR PRN #28 tab 02/21/21 [Rx] Benzonatate [Tessalon Perles] 200 mg PO Q8HR PRN 02/27/21 [History] Ferrous Sulfate [Iron (65 MG Elemental)] 325 mg PO DAILY 02/27/21 [History] Pregabalin [Lyrica] See Taper PO DIRECTED 02/27/21 [History] Aspirin 325 mg PO DAILY 30 Days #30 tab 03/02/21 [Rx] Cephalexin [Keflex] 500 mg PO Q6HR 10 Days #40 cap 03/02/21 [Rx] Follow up Appointment(s)/Referral(s): Ousmane Lopes MD [STAFF PHYSICIAN] - 1 Week (follow up for severe aortic stenosis; Will call with follow up with Dr Lopes) Marcus King PAC [PHYSICIAN DETASSELER] - 03/16/21 10:00 am Natalya Hunt [NON-STAFF] - As Needed Zoraida Schmitz MD [Primary Care Provider] - 03/22/21 10:40 am Vito Perez MD [STAFF PHYSICIAN] - 03/28/21 2:30 pm (With [place]) Patient Instructions/Handouts: Cellulitis (DC) Activity/Diet/Wound Care/Special Instructions: Activity: As tolerated. Diet: heart healthy diet. Wound Care: To be provided by home care nurse and wound care clinic. Home Care Nurse: Dressings for left leg open ulcerations three times each week: Apply absorptive silver, saline moist gauze, and foam. Wrap with rolled gauze and secure with tape. Intact skin apply triad and abd wrap with titus wrap. Special Instructions: You will need to follow up with orthopedic surgery in 1 week. Infectious disease/wound care with Dr. Mccloud in one week and will need to schedule follow- up appointment with pulmonology, Dr. Perez for pulmonary function testing after you have fully recovered. Also you'll need to follow up with cardiology, Dr. Zapata to establish care with tenter frame operator and for continued monitoring/management of aortic stenosis. It is very important to take antibiotic exactly as prescribed without missing any doses intake for the full extended 10 day course after discharge. Thank you for allowing us to participate in your care, it was truly a pleasure having you for our patient!!!! I wish you a speedy recovery!!! I hope you and your enjoy sitting by the water with your tea!! Discharge Disposition: HOME WITH HOME HEALTH SERVICES <Mya Ayers - Last Filed: 03/02/21 20:06> Providers Date of admission: 02/27/21 15:12 Attending physician: Mya Ayers, Consults: 02/27/21 15:57 Consult Physician Routine Consulting Provider: Romulo Arora Consult Reason/Comments: Medical Management Do you want consulting provider notified?: Yes 02/27/21 16:18 Consult Physician Urgent Consulting Provider: Verenice Mccloud Consult Reason/Comments: Postop right knee cellulitis/edema/blisters Do you want consulting provider notified?: Yes 02/28/21 08:05 Consult Physician Routine Consulting Provider: Vito Perez Consult Reason/Comments: peripheral interstitial changes, honeycombing? mediast LAD Do you want consulting provider notified?: Yes Primary care physician: Zoraida Schmitz [facility] Course: Nixon Cunningham NP rendered care for this patient independently, reviewed the findings and plan as documented in the note above. I did not physically speak with or examine the patient on this date.
[2021-03-02 16:17] LABS: African American GFR (CKD) 98.7 (60.0-200.0); Anion Gap 11.4 mmol/L (4.00-12.00); BUN/Creat Ratio 12.02 Ratio (12.00-20.00); Calcium 8.1 mg/dL (8.7-10.3); Carbon Dioxide 24.3 mmol/L (21.6-31.8); Magnesium 2.1 mg/dL (1.5-2.4); Non-African American GFR(CKD) 85.1 (60.0-200.0)
--- NOTE | 2021-03-02 16:48 | PN ---
PROGRESS NOTE DATE OF SERVICE: 03/02/2021 REASON FOR FOLLOWUP: Right lower extremity cellulitis and wound. INTERVAL HISTORY: The patient was seen on rounds this morning. The patient overall is feeling better, breathing comfortably. Overall pain, discomfort and swelling to the right leg has decreased. No chest pain, shortness of breath or cough. No abdominal pain or diarrhea. PHYSICAL EXAMINATION: Blood pressure 115/57, pulse of 75, temperature 98.1. He is 98% on room air. General description is an elderly male up in the chair in no distress. RESPIRATORY SYSTEM: Unlabored breathing. Clear to auscultation anteriorly. HEART: S1, S2. Regular rate and rhythm. ABDOMEN: Soft. No tenderness. Right leg swelling and redness have much improved. LABS: Hemoglobin is 7.4, white count 8.8, creatinine 0.90. DIAGNOSTIC IMPRESSION AND PLAN: Patient with acute right lower extremity cellulitis; overall improvement on cefazolin, finishing therapy with oral Keflex, local wound care with dressing and Mikael wrap. Advised to follow up in the [facility] with me next week. Continue with supportive care. MMODL / IJN: [id number] /
== END 2021-03-02 16:02 | disposition home health service (06) | DRG 863 ==
LOC: EC 10:27 → 4SSUR 15:12
PROVIDERS: ADMIT Internal Medicine; ATTEND Internal Medicine
DX: T81.41XA Infection following a procedure, superficial incisional surgical site, initial encounter (principal); L03.115 Cellulitis of right lower limb; J81.1 Chronic pulmonary edema; L97.211 Non-pressure chronic ulcer of right calf limited to breakdown of skin; S80.821A Blister (nonthermal), right lower leg, initial encounter; D50.9 Iron deficiency anemia, unspecified; E78.5 Hyperlipidemia, unspecified; I08.0 Rheumatic disorders of both mitral and aortic valves; Z20.822 Contact with and (suspected) exposure to COVID-19; I10 Essential (primary) hypertension; R59.0 Localized enlarged lymph nodes; R20.2 Paresthesia of skin; R09.82 Postnasal drip; R60.0 Localized edema; R91.8 Other nonspecific abnormal finding of lung field; M79.89 Other specified soft tissue disorders; J84.10 Pulmonary fibrosis, unspecified; M19.90 Unspecified osteoarthritis, unspecified site; Z79.01 Long term (current) use of anticoagulants; Z79.82 Long term (current) use of aspirin; Z86.73 Personal history of transient ischemic attack (TIA), and cerebral infarction without residual deficits; Z79.899 Other long term (current) drug therapy; Z87.891 Personal history of nicotine dependence; Z96.1 Presence of intraocular lens; Z96.651 Presence of right artificial knee joint; Z98.42 Cataract extraction status, left eye; Z98.41 Cataract extraction status, right eye; Y84.8 Other medical procedures as the cause of abnormal reaction of the patient, or of later complication, without mention of misadventure at the time of the procedure
CPT/HCPCS: 36415; 71045; 71275; 80048; 80053; 82164; 83615; 83735; 83880; 85025; 85027; 85610; 85730; 86140; 87040; 87502; 87634; 87635; 93306; 96374; 99284

== ENCOUNTER → 2021-04-26 | Outpatient (CLI) | payer MEDICARE ==
--- NOTE | 2021-04-26 13:08 | CT ---
EXAMINATION TYPE: CT urogram wo/w con DATE OF EXAM: 04/26/2021 COMPARISON: None. HISTORY: microscopic hematuria CT DLP: 4199.9 mGycm, Automated Exposure Control for Dose Reduction was Utilized. CONTRAST: CT scan of the abdomen and pelvis is performed without oral and without and with IV Contrast, patient injected with 100 mL of Isovue 300. Urogram protocol with 3-D reconstructed images created on an ind ependent workstation and reviewed. FINDINGS: KUB: Noncontrast images show no renal calculi bilaterally. Postcontrast images show symmetric cortica l medullary uptake and excretion without hydronephrosis seen bilaterally. There are some central simp le appearing parapelvic cyst lower pole of the left kidney. There is 1.7 cm thin-walled cyst anterior ly lower pole of the left kidney. Right kidney shows a few scattered simple appearing thin-walled cys t. There is a partially exophytic lobulated thin-walled cystic lesion anteriorly measuring 8.6 x 5.0 x 7.5 cm axial image 29 and coronal image 72 that has calcified internal septations. No suspicious en hancing solid component. Favor a Bosniak 2F lesion. Visualized portion of both ureters show no suspic ious obstructing calculus. Bladder shows satisfactory distention without abnormal intraluminal mass o r wall thickening. LUNG BASES: Parenchymal fibrotic changes in the bases greatest in the periphery in the lung bases. LIVER/GB: A few scattered simple-appearing thin-walled cysts throughout the liver. PANCREAS: No significant abnormality is seen. SPLEEN: No significant abnormality is seen. ADRENALS: No significant abnormality is seen. BOWEL: Diverticula in the sigmoid colon are present. No CT evidence for acute diverticulitis. No susp icious bowel dilatation. PROSTATE/SEMINAL VESICLES: Prostate gland measures upper limits of normal in size. LYMPH NODES: No greater than 1cm abdominal or pelvic lymph nodes are appreciated. OSSEOUS STRUCTURES: Spurring bilateral sacroiliac joints. Severe degenerative change left hip joint w ith marked narrowing and [id number] appearance. Spurring and subchondral cystic changes are present . Moderate to severe degenerative changes right hip joint. OTHER: No significant additional abnormality is seen. IMPRESSION: Source of microhematuria not identified. Nonsimple cystic lesion right kidney, advise rep eat imaging in 6-12 months time to reassess.
== END | disposition home or self-care (01) ==
LOC: RADCTMAIN 09:25
PROVIDERS: ATTEND Urology
DX: R31.29 Other microscopic hematuria (principal); N28.1 Cyst of kidney, acquired
CPT/HCPCS: 82565; 84520; 74178; 36415; 74400; Q9967

== ENCOUNTER → 2021-05-10 | Outpatient (CLI) | payer MEDICARE ==
--- NOTE | 2021-05-10 09:43 | XR ---
EXAMINATION TYPE: XR bone survey complete DATE OF EXAM: 05/10/2021 COMPARISON: NONE HISTORY: D47.2, D60.9, M12.9, M10.9 Bony calvarium : 2 views of the bony calvarium demonstrate no evidence for lytic or blastic lesion. Single view chest: Scattered reticulonodular infiltrates. Bilateral ribs appear unremarkable. Spine: Two views of the cervical, thoracic and lumbar spines are submitted. Moderate degenerative di sc space narrowing and spondylosis throughout the cervical spine. No lytic or blastic lesions seen. M oderate degenerative change lumbar spine with associated spondylosis. No lytic or blastic lesion iden tified. Conclusion moderate to severe degenerative narrowing thoracic spine with associated spondylos is. No lytic or blastic lesions seen. PELVIS: Single view of the pelvis demonstrates no evidence for lytic or blastic lesion. Moderate to severe degenerative joint space narrowing left hip joint space. Right hip joint space is within amor l limits. UPPER EXTREMITIES: Two views of the upper extremities no evidence for lytic or blastic lesion. LOWER EXTREMITIES: 2 views of the lower extremities no evidence for lytic or blastic lesion. IMPRESSION: no evidence for lytic or blastic lesion.
== END | disposition home or self-care (01) ==
LOC: RADXRMAIN 08:37
PROVIDERS: ATTEND Internal Medicine Hematology & Oncology
DX: D47.2 Monoclonal gammopathy (principal); D60.9 Acquired pure red cell aplasia, unspecified; M12.9 Arthropathy, unspecified; M10.9 Gout, unspecified
CPT/HCPCS: 77075

== ENCOUNTER → 2021-09-13 | Outpatient (CLI) | payer MEDICARE ==
--- NOTE | 2021-09-13 19:27 | US ---
EXAMINATION TYPE: US venous doppler duplex LE DATE OF EXAM: 09/13/2021 2:25 PM COMPARISON: NONE CLINICAL HISTORY: L03.115 CELLULITIS OF RT LOWER LIMB. Bilateral leg pain SIDE PERFORMED: Bilateral TECHNIQUE: The lower extremity deep venous system is examined utilizing real time linear array sonog nellie with graded compression, doppler sonography and color-flow sonography. VESSELS IMAGED: Common Femoral Vein Deep Femoral Vein Greater Saphenous Vein * Femoral Vein Popliteal Vein Small Saphenous Vein * Proximal Calf Veins (* superficial vessels) Right Leg: Negative for DVT Left Leg: Negative for DVT IMPRESSION: 1. Bilateral lower extremity ultrasound negative for deep venous thrombosis.
== END | disposition home or self-care (01) ==
LOC: RADUSWWP 13:14
PROVIDERS: ATTEND Thoracic Surgery (Cardiothoracic Vascular Surgery)
DX: L03.115 Cellulitis of right lower limb (principal)
CPT/HCPCS: 93970

== ENCOUNTER 2022-05-08 20:12 | Inpatient (IN) | payer MEDICARE ==
[2022-05-08 20:52] LABS: Basophils % (A) 0 %; Eosinophils # (A) 0.2 k/uL (0-0.7); Eosinophils % (A) 2 %; HCT 27.3 % (39.0-53.0); HGB 8.5 gm/dL (13.0-17.5); Hypochromasia Slight; Lymphocytes # (A) 1.9 k/uL (1.0-4.8); Lymphocytes % (A) 17 %; MCH 29.5 pg (25.0-35.0); MCHC 31.1 g/dL (31.0-37.0); MCV 94.7 fL (80.0-100.0); Mean Platelet Volume 8.4; Monocytes # (A) 0.8 k/uL (0-1.0); Monocytes % (A) 7 %; Neutrophils % (A) 73 %; Platelet Count 312 k/uL (150-450); RBC 2.88 m/uL (4.30-5.90); RDW 14.8 % (11.5-15.5)
[2022-05-08 21:00] LABS: INR 2.9 (<1.2); Partial Thromboplastin Time 36.7 sec (22.0-30.0); Prothrombin Time 28.1 sec (9.0-12.0)
[2022-05-08 21:07] LABS: Albumin 3.5 g/dL (3.5-5.0); Calcium 8.4 mg/dL (8.4-10.2); Potassium 3.9 mmol/L (3.5-5.1); Total Bilirubin 0.6 mg/dL (0.2-1.3)
--- NOTE | 2022-05-08 21:25 | XR ---
EXAMINATION TYPE: XR chest 2V DATE OF EXAM: 05/08/2022 8:49 PM COMPARISON: Chest radiographs from 02/27/2021 TECHNIQUE: XR chest 2V Frontal and lateral views of the chest. CLINICAL INDICATION:Male, 71 years old with history of difficulty breathing; FINDINGS: Lungs/Pleura: Multifocal airspace opacities. No evidence of pneumothorax or pleural effusion. Pulmonary vascularity: Unremarkable. Heart/mediastinum: Cardiomediastinal silhouette is enlarged and stable. Musculoskeletal: No acute osseous pathology. IMPRESSION: Multifocal airspace opacities concerning for pneumonia. Superimposed congestive heart failure is not excluded. Correlate with serum BNP.
[2022-05-09] MEDS ORDERED: FUROSEMIDE 10 MG/ML 4 ML VIAL IV STA (03:12)
[2022-05-09] MEDS ORDERED: AZITHROMYCIN 500 MG in SODIUM CHLORIDE 0.9% 250 ML IVPB STA (03:12)
[2022-05-09 03:32] VITALS: TEMP 98.2
[2022-05-09] MEDS ORDERED: NALOXONE 0.4 MG/ML 1 ML VIAL IV PRN (06:08)
--- NOTE | 2022-05-09 06:18 | ED ---
General Adult HPI - General Chief complaint: Shortness of Breath Stated complaint: sob Time Seen by Provider: 05/09/22 02:48 Source: patient Mode of arrival: wheelchair - History of Present Illness Initial comments: This is a 71-year-old male with a past medical history including previous CVA on Coumadin, "leaky valve" and possible CHF presents emergency department for cough and shortness of breath. The patient stated that he has had increasing exertional dyspnea over the last 2 days associated with a cough. The patient has had a productive cough but denied any fevers or chills. The patient did state that he had some minor swelling noted to his legs but stated that he d enied any shortness of breath at rest. The patient did state that he underwent an echocardiogram 3 weeks ago and did not state that there was any other abnormalities noted. The patient denied any other acute pain or complaints at this time. The patient denied any current nausea, vomiting, fevers and chills. - Related Data Home Medications Medication Instructions Recorded Confirmed Atorvastatin [Lipitor] 40 mg PO HS 02/17/21 02/27/21 Fexofenadine HCl 180 mg PO DAILY 02/17/21 02/27/21 Fluticasone Nasal [place] [Flonase 2 spray EA NOSTRIL DAILY PRN 02/17/21 02/27/21 Nasal [place]] Furosemide [Lasix] 20 mg PO DAILY 02/17/21 02/27/21 Losartan [Cozaar] 25 mg PO DAILY 02/17/21 02/27/21 Metoprolol Succinate (ER) [Toprol 25 mg PO DAILY 02/17/21 02/27/21 XL] Benzonatate [Tessalon Perles] 200 mg PO Q8HR PRN 02/27/21 02/27/21 Ferrous Sulfate [Iron (65 MG 325 mg PO DAILY 02/27/21 02/27/21 Elemental)] Pregabalin [Lyrica] See Taper PO DIRECTED 02/27/21 02/27/21 Previous Rx's Medication Instructions Recorded Docusate [Colace] 100 mg PO DAILY #30 cap 02/21/21 HYDROcodone/APAP 7.5-325MG [[place] 1 each PO Q6HR PRN #28 tab 02/21/21 7.5-325] Aspirin 325 mg PO DAILY 30 Days #30 tab 03/02/21 Cephalexin [Keflex] 500 mg PO Q6HR 10 Days #40 cap 03/02/21 Allergies Allergy/AdvReac Type Severity Reaction Status Date / Time No Known Allergies Allergy Verified 05/08/22 20:20 Review of Systems ROS Statement: Those systems with pertinent positive or pertinent negative responses have been documented in the HPI. ROS Other: All systems not noted in ROS Statement are negative. Past Medical History Past Medical History: CVA/TIA, Hyperlipidemia, Osteoarthritis (OA) Additional Past Medical History / Comment(s): CVA 2014-STILL HAS SOME RESIDUAL TINGLING IN FINGERS History of Any Multi-Drug Resistant Organisms: None Reported Past Surgical History: Joint Replacement, Orthopedic Surgery Additional Past Surgical History / Comment(s): BILAT CATARACTS REMOVED WITH LENS IMPLANTS. COLONOSCOPY Past Anesthesia/Blood Transfusion Reactions: No Reported Reaction Past Psychological History: No Psychological Hx Reported Smoking Status: Former smoker Past Alcohol Use History: None Reported Past Drug Use History: None Reported - Past Family History Mother History Unknown: Yes Father History Unknown: Yes Family Medical History: No Reported History General Exam Limitations: no limitations General appearance: alert, in no apparent distress Head exam: Present: atraumatic, normocephalic, normal inspection Eye exam: Present: normal appearance, PERRL Pupils: Present: normal accommodation ENT exam: Present: normal exam, normal oropharynx, mucous membranes moist Neck exam: Present: normal inspection, full ROM Respiratory exam: Present: normal lung sounds bilaterally Cardiovascular Exam: Present: regular rate, normal rhythm, normal heart sounds GI/Abdominal exam: Present: soft, normal bowel sounds Extremities exam: Present: normal inspection, full ROM Back exam: Present: normal inspection, full ROM Neurological exam: Present: alert, oriented X3, CN II-XII intact Psychiatric exam: Present: normal affect, normal mood Skin exam: Present: warm, dry Course Vital Signs 05/08/22 05/09/22 05/09/22 20:16 03:31 05:58 Temperature 99.6 F 98.2 F Pulse Rate 84 69 70 Respiratory 16 18 18 Rate Blood Pressure 167/65 132/69 106/54 O2 Sat by Pulse 96 98 94 L Oximetry EKG Findings - EKG Comments: EKG Findings:: An EKG was performed and was interpreted by myself. EKG showed a rate of 84, P arrival 149, QR hindu 93 and QTC of 418. This EKG showed a normal sinus rhythm with no ST segment elevations or depressions noted. Medical Decision Making - Medical Decision Making Was pt. sent in by a medical professional or institution? @ -No Did you speak to anyone other than the patient for history? @ -No Did you review nursing and triage notes? @ -Nursing triage notes were reviewed Were old charts reviewed? @ -No outside records were reviewed Differential Diagnosis? @ -Pneumonia, CHF exacerbation, ACS EKG interpreted by me (3pts min.)? @ -As above X-rays interpreted by me (1pt min.)? @ -Chest x-ray was obtained and was interpreted by myself. Chest x-ray showed possible bilateral pneumonia versus pulmonary edema CT interpreted by me (1pt min.)? @ -[none] U/S interpreted by me (1pt. min.)? @ -[none] What testing was considered but not performed? (CT, X-rays, U/S, labs)? Why? @Computed tomography scan was considered however the patient did have possible bilateral pneumonia versus edema on the chest x-ray therefore no further imaging was required at this time. What meds were considered but not given? Why? @ -[none] Did you discuss the management of the patient with other professionals? @ -Yes, the accepting physician, Dr. Caraballo Did you reconcile home meds? @ -[none] Was smoking cessation discussed for >3mins.? @ -[none] Was critical care preformed (if so, how long)? @ -[none] Were there social determinants of health that impacted care today? How? (Homelessness, low income, unemployed, alcoholism, drug addiction, transportation, low edu. Level, literacy, decrease access to med. care, retirement, rehab)? @ -None Was there de-escalation of care discussed even if they declined? (Discuss DNR or withdrawal of care, Hospice)? @ -No What co-morbidities impacted this encounter? (DM, HTN, Smoking, COPD, CAD, Cancer, CVA, Hep., AIDS, mental health diagnosis, sleep apnea, morbid obesity)? @ -No Was patient admitted / discharged? @ -The patient was seen and evaluated emergency department. Physical exam, the patient was resting in bed without any acute distress. Vital signs admission were stable and within normal limits. The patient did have exertional dyspnea and on laboratory workup showed an elevated proBNP. The patient's d-dimer was negative therefore was not a PE at this time. Chest x-ray showed possible bilateral pneumonia versus pulmonary edema and due to the patient's setting of cough, the patient be treated for both. The patient was given a dose of Lasix as well as a dose of IV Rocephin and azithromycin. The patient was offered observation and did accept this. The patient was placed in observation for cardiology to evaluate the patient in the morning. The patient's primary care physician was being covered by Dr. Caraballo and he did accept the patient for admission at 0318. The patient was told this plan and was agreeable. The patient was placed in observation in stable condition. Undiagnosed new problem with uncertain prognosis? @ -[none] Drug Therapy requiring intensive monitoring for toxicity (Heparin, Nitro, Insulin, Cardizem)? @ -[none] Were any procedures done? @ -[none] Diagnosis/symptom? @ -Possible bilateral community acquired pneumonia Acute, or Chronic, or Acute on Chronic? @ -Acute Uncomplicated (without systemic symptoms) or Complicated (systemic symptoms)? @ -Uncomplicated Side effects of treatment? @ -[none] Exacerbation, Progression, or Severe Exacerbation] @ -[no] Poses a threat to life or bodily function? @ -[no] Diagnosis/symptom? @ -Congestive heart failure exacerbation Acute, or Chronic, or Acute on Chronic? @ -Acute Uncomplicated (without systemic symptoms) or Complicated (systemic symptoms)? @ -Uncompensated Side effects of treatment? @ -[none] Exacerbation, Progression, or Severe Exacerbation] @ -Exacerbation Poses a threat to life or bodily function? @ -[no] - Lab Data Result diagrams: 05/08/22 20:29 05/08/22 20:29 Lab Results 05/08/22 05/08/22 05/08/22 Range/Units 20:24 20:29 20:29 WBC 11.0 H (3.8-10.6) k/uL RBC 2.88 L (4.30-5.90) m/uL Hgb 8.5 L (13.0-17.5) gm/dL Hct 27.3 L (39.0-53.0) % MCV 94.7 (80.0-100.0) fL MCH 29.5 (25.0-35.0) pg MCHC 31.1 (31.0-37.0) g/dL RDW 14.8 (11.5-15.5) % Plt Count 312 (150-450) k/uL MPV 8.4 Neutrophils % 73 % Lymphocytes % 17 % Monocytes % 7 % Eosinophils % 2 % Basophils % 0 % Neutrophils # 8.0 H (1.3-7.7) k/uL Lymphocytes # 1.9 (1.0-4.8) k/uL Monocytes # 0.8 (0-1.0) k/uL Eosinophils # 0.2 (0-0.7) k/uL Basophils # 0.0 (0-0.2) k/uL Hypochromasia Slight PT 28.1 H (9.0-12.0) sec INR 2.9 H (<1.2) APTT 36.7 H (22.0-30.0) sec D-Dimer (<0.60) mg/L FEU Sodium (137-145) mmol/L Potassium (3.5-5.1) mmol/L Chloride (98-107) mmol/L Carbon Dioxide (22-30) mmol/L Anion Gap mmol/L BUN (9-20) mg/dL Creatinine (0.66-1.25) mg/dL Est GFR (CKD-EPI)AfAm (>60 ml/min/1.73 sqM) Est GFR (CKD-EPI)NonAf (>60 ml/min/1.73 sqM) Glucose (74-99) mg/dL Calcium (8.4-10.2) mg/dL Total Bilirubin (0.2-1.3) mg/dL AST (17-59) U/L ALT (4-49) U/L Alkaline Phosphatase (38-126) U/L Troponin I (0.000-0.034) ng/mL NT-Pro-B Natriuret Pep pg/mL Total Protein (6.3-8.2) g/dL Albumin (3.5-5.0) g/dL Influenza Type A (PCR) Not Detected (Not Detectd) Influenza Type B (PCR) Not Detected (Not Detectd) RSV (PCR) Not Detected (Not Detectd) SARS-CoV-2 (PCR) Not Detected (Not Detectd) 05/08/22 05/08/22 05/08/22 Range/Units 20:29 20:29 20:30 WBC (3.8-10.6) k/uL RBC (4.30-5.90) m/uL Hgb (13.0-17.5) gm/dL Hct (39.0-53.0) % MCV (80.0-100.0) fL MCH (25.0-35.0) pg MCHC (31.0-37.0) g/dL RDW (11.5-15.5) % Plt Count (150-450) k/uL MPV Neutrophils % % Lymphocytes % % Monocytes % % Eosinophils % % Basophils % % Neutrophils # (1.3-7.7) k/uL Lymphocytes # (1.0-4.8) k/uL Monocytes # (0-1.0) k/uL Eosinophils # (0-0.7) k/uL Basophils # (0-0.2) k/uL Hypochromasia PT (9.0-12.0) sec INR (<1.2) APTT (22.0-30.0) sec D-Dimer (<0.60) mg/L FEU Sodium 140 (137-145) mmol/L Potassium 3.9 (3.5-5.1) mmol/L Chloride 108 H (98-107) mmol/L Carbon Dioxide 21 L (22-30) mmol/L Anion Gap 11 mmol/L BUN 28 H (9-20) mg/dL Creatinine 1.22 (0.66-1.25) mg/dL Est GFR (CKD-EPI)AfAm 69 (>60 ml/min/1.73 sqM) Est GFR (CKD-EPI)NonAf 60 (>60 ml/min/1.73 sqM) Glucose 111 H (74-99) mg/dL Calcium 8.4 (8.4-10.2) mg/dL Total Bilirubin 0.6 (0.2-1.3) mg/dL AST 25 (17-59) U/L ALT 18 (4-49) U/L Alkaline Phosphatase 71 (38-126) U/L Troponin I 0.033 (0.000-0.034) ng/mL NT-Pro-B Natriuret Pep 2600 pg/mL Total Protein 7.0 (6.3-8.2) g/dL Albumin 3.5 (3.5-5.0) g/dL Influenza Type A (PCR) (Not Detectd) Influenza Type B (PCR) (Not Detectd) RSV (PCR) (Not Detectd) SARS-CoV-2 (PCR) (Not Detectd) 05/08/22 Range/Units 20:30 WBC (3.8-10.6) k/uL RBC (4.30-5.90) m/uL Hgb (13.0-17.5) gm/dL Hct (39.0-53.0) % MCV (80.0-100.0) fL MCH (25.0-35.0) pg MCHC (31.0-37.0) g/dL RDW (11.5-15.5) % Plt Count (150-450) k/uL MPV Neutrophils % % Lymphocytes % % Monocytes % % Eosinophils % % Basophils % % Neutrophils # (1.3-7.7) k/uL Lymphocytes # (1.0-4.8) k/uL Monocytes # (0-1.0) k/uL Eosinophils # (0-0.7) k/uL Basophils # (0-0.2) k/uL Hypochromasia PT (9.0-12.0) sec INR (<1.2) APTT (22.0-30.0) sec D-Dimer 0.30 (<0.60) mg/L FEU Sodium (137-145) mmol/L Potassium (3.5-5.1) mmol/L Chloride (98-107) mmol/L Carbon Dioxide (22-30) mmol/L Anion Gap mmol/L BUN (9-20) mg/dL Creatinine (0.66-1.25) mg/dL Est GFR (CKD-EPI)AfAm (>60 ml/min/1.73 sqM) Est GFR (CKD-EPI)NonAf (>60 ml/min/1.73 sqM) Glucose (74-99) mg/dL Calcium (8.4-10.2) mg/dL Total Bilirubin (0.2-1.3) mg/dL AST (17-59) U/L ALT (4-49) U/L Alkaline Phosphatase (38-126) U/L Troponin I (0.000-0.034) ng/mL NT-Pro-B Natriuret Pep pg/mL Total Protein (6.3-8.2) g/dL Albumin (3.5-5.0) g/dL Influenza Type A (PCR) (Not Detectd) Influenza Type B (PCR) (Not Detectd) RSV (PCR) (Not Detectd) SARS-CoV-2 (PCR) (Not Detectd) Disposition Clinical Impression: Congestive heart failure, Bilateral pneumonia Disposition: ADMITTED IP TO THIS [facility] Condition: Stable Is patient prescribed a controlled substance at d/c from ED?: No Referrals: Leanna Arauz DO [Primary Care Provider] - 1-2 days Time of Disposition: 03:18 Decision to Admit Reason: Admit from EC Decision Date: 05/09/22 Decision Time: 03:18
[2022-05-09] MEDS ORDERED: HYDROcodone/APAP 7.5-325MG 1 EACH TAB PO PRN ×2 (06:41→17:40)
--- NOTE | 2022-05-09 06:47 | P.HPIM ---
History of Present Illness H&P Date: 05/09/22 Chief Complaint: shortness of breath 71 year old male with h/o stroke, hypertension , hyperlipidemia he is coming in for shortness of breath over the past 2 days , denies any leg edema , or orthopnea. but have noticed progressive exertional dyspnea with slightest activity around the house, he is denying any cough or chest pain , no leg edema . no known sick contacts. no fever or chills. no recent travel no history of blood clots. he reports occasional minimally productive chronic cough , that has not changed from baseline he denies any smoking, illicit drugs or heavy alcohol workup in the ed showed slight elevated WBC, chronic anemia CXR suspicious for pneumonia Review of Systems Pertinent positives as noted in HPI. All other systems were reviewed and are negative Past Medical History Past Medical History: CVA/TIA, Hyperlipidemia, Osteoarthritis (OA) Additional Past Medical History / Comment(s): CVA 2014-STILL HAS SOME RESIDUAL TINGLING IN FINGERS History of Any Multi-Drug Resistant Organisms: None Reported Past Surgical History: Joint Replacement, Orthopedic Surgery Additional Past Surgical History / Comment(s): BILAT CATARACTS REMOVED WITH LENS IMPLANTS. COLONOSCOPY Past Anesthesia/Blood Transfusion Reactions: No Reported Reaction Past Psychological History: No Psychological Hx Reported Smoking Status: Former smoker Past Alcohol Use History: None Reported Past Drug Use History: None Reported - Past Family History Mother History Unknown: Yes Father History Unknown: Yes Family Medical History: No Reported History Medications and Allergies Home Medications Medication Instructions Recorded Confirmed Type Atorvastatin [Lipitor] 40 mg PO HS 02/17/21 02/27/21 History Fexofenadine HCl 180 mg PO DAILY 02/17/21 02/27/21 History Fluticasone Nasal [place] [Flonase 2 spray EA NOSTRIL DAILY PRN 02/17/21 02/27/21 History Nasal [place]] Furosemide [Lasix] 20 mg PO DAILY 02/17/21 02/27/21 History Losartan [Cozaar] 25 mg PO DAILY 02/17/21 02/27/21 History Metoprolol Succinate (ER) [Toprol 25 mg PO DAILY 02/17/21 02/27/21 History XL] Docusate [Colace] 100 mg PO DAILY #30 cap 02/21/21 02/27/21 Rx HYDROcodone/APAP 7.5-325MG [[place] 1 each PO Q6HR PRN #28 tab 02/21/21 02/27/21 Rx 7.5-325] Benzonatate [Tessalon Perles] 200 mg PO Q8HR PRN 02/27/21 02/27/21 History Ferrous Sulfate [Iron (65 MG 325 mg PO DAILY 02/27/21 02/27/21 History Elemental)] Pregabalin [Lyrica] See Taper PO DIRECTED 02/27/21 02/27/21 History Aspirin 325 mg PO DAILY 30 Days #30 tab 03/02/21 Rx Cephalexin [Keflex] 500 mg PO Q6HR 10 Days #40 cap 03/02/21 Rx Allergies Allergy/AdvReac Type Severity Reaction Status Date / Time No Known Allergies Allergy Verified 05/08/22 20:20 Physical Exam Vitals: Vital Signs Temp Pulse Resp BP Pulse Ox 05/08/22 20:16 99.6 F 84 16 167/65 96 Intake and Output 05/08/22 05/08/22 05/09/22 14:59 22:59 06:59 Other: Weight 113.398 kg Constitutional: No acute distress, conversant, pleasant Eyes: Anicteric sclerae, moist conjunctiva, Pupils equal round reactive to light ENMT: NC/AT Oropharynx clear, no erythema, or exudates Neck: Supple, no masses, or JVD No carotid bruits No thyromegaly Lungs: rhonchi over lung bases bilaterally Clear to percussion Normal respiratory effort, no accessory muscle use Cardiovascular: Heart regular in rate and rhythm, No murmurs, gallops, or rubs No peripheral edema Abdominal: Soft Nontender, no guarding, rebound or rigidity Abdomen moving with respiration Normoactive bowel sounds No hepatomegaly, No splenomegaly No palpable mass No abdominal wall hernia noted Skin: Normal temperature, tone, texture, turgor No induration No subcutaneous nodules No rash, lesions No ulcers Extremities: No digital cyanosis No clubbing Pedal pulses intact and symmetrical Radial pulses intact and symmetrical No calf tenderness Psychiatric: Alert and oriented to person, place and time Appropriate affect fair judgement Neuro Muscles Strength 5/5 in all 4 extremities Sensation to light touch grossly present throughout Cranial nerves II-XII grossly intact Lymphatics: no palpable cervical or supraclavicular lymph nodes Results CBC & Chem 7: 05/08/22 20:29 05/08/22 20:29 Labs: Abnormal Lab Results - Last 24 Hours (Table) 05/08/22 05/08/22 05/08/22 Range/Units 20:29 20:29 20:29 WBC 11.0 H (3.8-10.6) k/uL RBC 2.88 L (4.30-5.90) m/uL Hgb 8.5 L (13.0-17.5) gm/dL Hct 27.3 L (39.0-53.0) % Neutrophils # 8.0 H (1.3-7.7) k/uL PT 28.1 H (9.0-12.0) sec INR 2.9 H (<1.2) APTT 36.7 H (22.0-30.0) sec Chloride 108 H (98-107) mmol/L Carbon Dioxide 21 L (22-30) mmol/L BUN 28 H (9-20) mg/dL Glucose 111 H (74-99) mg/dL Assessment and Plan Assessment: community acquired pneumonia follow up cultures initiate on rocephine and azithro tylenol for fever acute respiratory viral panel negative 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 cardiology consult chronic condition s hypertension and history of stroke resume aspirin and home BP meds full code DVT PPX heparin sc tid
[2022-05-09] MEDS ORDERED: ASPIRIN 325 MG TAB PO SCH (09:00)
--- NOTE | 2022-05-09 09:53 | P.CRDCN ---
History of Present Illness Consult date: 05/09/22 Consult reason: congestive heart failure History of present illness: History of present illness: This is a 71-year-old male patient of Dr. Lopes with past medical history of CVAin 2015, paroxysmal atrial fibrillation, valvular heart disease, h ypertension, dyslipidemia. Patient states he has shortness of breath when he walks a short distance over the past 2-3 days and getting worse. He has a very rare cough, nonproductive. He complains of a sore throat and wheezing. No fever or chills. He denies concern of increased lower extremity edema as he has had intermittent edema since knee surgery and treats with compression socks which helps. He denies any weight gain. He denies PND, he sleeps with 2 pillows which is normal for him. He denies any blood in his stools or urine. No nausea or vomiting. No diarrhea. No palpitations and no syncopal episodes. He denies any intake of alcohol or caffeine. He denies having recent stress test. He denies history of NC, coronary artery disease, and has never been diagnosed with heart failure. He denies history of asthma and diabetes. He has a remote history of tobacco use and quit 25 years ago. Patient was provided 1 dose of IV Lasix 40 mg while in the emergency center. Patient is seen today in the emergency center. EKG sinus rhythm with no acute ST changes Chest x-ray multifocal airspace opacities concerning for pneumonia. Superimposed congestive heart failure is not excluded. Correlate with serum BNP WBC 11.0, hemoglobin 8.5. INR 2.9. D-dimer 0.3. Potassium 3.9, BUN 29 and creatinine 1.22. Blood sugar 111. ProBNP 2600. Troponin 0.033. Influenza A, influenza B, RSV, Covid not detected. Echocardiogram 04/09/2022 revealed normal LV size and normal function. Borderl ine left ventricular hypertrophy. Moderate aortic regurgitation and severe aortic stenosis, moderate to severe mitral regurgitation, moderate tricuspid regurgitation, moderately increased pulmonary artery systolic pressure. Mild pulmonic regurgitation. Home cardiac medications: atorvastatin 40 mg daily, Lasix 20 mg daily, losartan 25 mg daily, Toprol-XL 25 mg daily, warfarin 5 mg on Tues, Wed, Thurs, Sat and Sun, 7.5 mg on Mon and Fri. Review Of Systems: Constitutional: No fever, no chills. No weakness, fatigue or lethargy. EENT: No headache. No dizziness. Lungs: Reports shortness of breath, Reports rare cough, no sputum production. Reports wheezing. Reports dyspnea with minimal exertion. Cardiovascular: No chest pain, Reports lower extremity edema. No palpitations. No paroxysmal nocturnal dyspnea. No orthopnea. No lightheadedness or dizziness. No syncopal episodes. Abdominal: No abdominal pain. No nausea, vomiting. No diarrhea. No constipation. No bloody or tarry stools. No loss of appetite. Genitourinary: No dysuria. No hematuria. No urinary retention. Musculoskeletal: No myalgias. No muscle weakness, no gait dysfunction, no frequent falls. No back pain. No neck pain. Integumentary: No wounds, no lesions. No rash or pruritus. No unusual bruising. Neurologic: No aphasia. No facial droop. No change in mentation. No head injury. No headache. No paralysis. No paresthesia. Psychiatric: No depression. No anxiety. Endocrine: No abnormal blood sugars. Physical examination: Gen: This is a 71 year old male. He is resting on ER stretcher and appears to be comfortable and in no acute distress. VS: reviewed HEENT: Head is atraumatic, normocephalic. Pupils equal, round. Sclerae is anicteric. No carotid bruit. NECK: Supple. No JVD. No lymphadenopathy. No thyromegaly. LUNGS: Mild crackers to the bilateral bases. No intercostal retractions. HEART: Regular rate and rhythm. Aortic stenosis murmur right sternal border, mitral regurgitation murmur. ABDOMEN: Soft. Bowel sounds are present. No masses. No tenderness. EXTREMITIES: 1+ pedal edema. No calf tenderness. NEUROLOGICAL: Patient is awake, alert and oriented x3. Cranial nerves 2 through 12 are grossly intact. Assessment: Acute diastolic heart failure, new onset Valvular heart disease with severe aortic stenosis, moderate aortic regurgitation, moderate t0 severe mitral regurgitation, moderate tricuspid regurgitation Hypertension Hyperlipidemia Paroxysmal atrial fibrillation in sinus rhythm Plan: Start patient on Lasix 40 mg every 12 hours Monitor electrolytes and renal function Monitor I&O and daily weights No need to repeat echocardiogram Patient will need work up with cardiac catheterization and DIANNA to evaluate for valve surgery. Can be done as either inpatient or outpatient. Further recommendations to follow based upon clinical course Thank you kindly for this consultation. Nurse practitioner note has been reviewed, I agree with documented findings and plan of care. Patient was seen and examined. Past Medical History Past Medical History: CVA/TIA, Hyperlipidemia, Osteoarthritis (OA) Additional Past Medical History / Comment(s): CVA 2014-STILL HAS SOME RESIDUAL TINGLING IN FINGERS History of Any Multi-Drug Resistant Organisms: None Reported Past Surgical History: Joint Replacement, Orthopedic Surgery Additional Past Surgical History / Comment(s): BILAT CATARACTS REMOVED WITH LENS IMPLANTS. COLONOSCOPY Past Anesthesia/Blood Transfusion Reactions: No Reported Reaction Past Psychological History: No Psychological Hx Reported Smoking Status: Former smoker Past Alcohol Use History: None Reported Past Drug Use History: None Reported - Past Family History Mother History Unknown: Yes Father History Unknown: Yes Family Medical History: No Reported History Medications and Allergies Home Medications Medication Instructions Recorded Confirmed Type Atorvastatin [Lipitor] 40 mg PO DAILY@1800 02/17/21 05/09/22 History Fexofenadine HCl 180 mg PO DAILY 02/17/21 05/09/22 History Furosemide [Lasix] 20 mg PO DAILY@1300 02/17/21 05/09/22 History Losartan [Cozaar] 25 mg PO DAILY 02/17/21 05/09/22 History Metoprolol Succinate (ER) [Toprol 25 mg PO DAILY 02/17/21 05/09/22 History XL] Ferrous Sulfate [Iron (65 MG 325 mg PO DAILY@1800 02/27/21 05/09/22 History Elemental)] Warfarin Sodium 5 mg PO SUTUWETHSA 05/09/22 05/09/22 History Warfarin Sodium 7.5 mg PO MOFR 05/09/22 05/09/22 History Allergies Allergy/AdvReac Type Severity Reaction Status Date / Time No Known Allergies Allergy Verified 05/09/22 07:32 Physical Exam Vitals: Vital Signs Temp Pulse Resp BP Pulse Ox 05/09/22 05:58 70 18 106/54 94 L 05/09/22 03:31 98.2 F 69 18 132/69 98 05/08/22 20:16 99.6 F 84 16 167/65 96 Intake and Output 05/08/22 05/09/22 05/09/22 22:59 06:59 14:59 Other: Weight 113.398 kg Results 05/08/22 20:29 05/08/22 20:29 Cardiac Enzymes 05/08/22 05/08/22 Range/Units 20:29 20:29 AST 25 (17-59) U/L Troponin I 0.033 (0.000-0.034) ng/mL Coagulation 05/08/22 Range/Units 20:29 PT 28.1 H (9.0-12.0) sec APTT 36.7 H (22.0-30.0) sec CBC 05/08/22 Range/Units 20:29 WBC 11.0 H (3.8-10.6) k/uL RBC 2.88 L (4.30-5.90) m/uL Hgb 8.5 L (13.0-17.5) gm/dL Hct 27.3 L (39.0-53.0) % Plt Count 312 (150-450) k/uL Comprehensive Metabolic Panel 05/08/22 Range/Units 20:29 Sodium 140 (137-145) mmol/L Potassium 3.9 (3.5-5.1) mmol/L Chloride 108 H (98-107) mmol/L Carbon Dioxide 21 L (22-30) mmol/L BUN 28 H (9-20) mg/dL Creatinine 1.22 (0.66-1.25) mg/dL Glucose 111 H (74-99) mg/dL Calcium 8.4 (8.4-10.2) mg/dL AST 25 (17-59) U/L ALT 18 (4-49) U/L Alkaline Phosphatase 71 (38-126) U/L Total Protein 7.0 (6.3-8.2) g/dL Albumin 3.5 (3.5-5.0) g/dL Current Medications Generic Name Dose Route Start Last Admin Trade Name Freq PRN Reason Stop Dose Admin Hydrocodone Bitart/Acetaminophen 1 each 05/09/22 06:41 Hydrocodone/Apap 7.5-325mg 1 Each Tab PO Q6HR PRN Pain Aspirin 325 mg 05/09/22 09:00 Aspirin 325 Mg Tab PO DAILY [facility] Atorvastatin Calcium 40 mg 05/09/22 21:00 Atorvastatin 40 Mg Tab PO HS [facility] Losartan Potassium 25 mg 05/09/22 09:00 Losartan 25 Mg Tab PO DAILY [facility] Metoprolol Succinate 25 mg 05/09/22 09:00 Metoprolol Succinate (Er) 25 Mg Tab.Er.24h PO DAILY [facility] Naloxone HCl 0.2 mg 05/09/22 06:08 Naloxone 0.4 Mg/Ml 1 Ml Vial IV Q2M PRN Opioid Reversal Intake and Output 05/08/22 05/09/22 05/09/22 22:59 06:59 14:59 Other: Weight 113.398 kg 05/08/22 20:29 05/08/22 20:29
[2022-05-09] MEDS: FUROSEMIDE 10 MG/ML 4 ML VIAL IV SCH ×2 (10:00→20:00)
[2022-05-09] MEDS: LOSARTAN 25 MG TAB PO SCH (10:01)
[2022-05-09] MEDS: METOPROLOL SUCCINATE (ER) 25 MG TAB.ER.24H PO SCH (10:01)
[2022-05-09 10:03] LABS: INR 2.5 (<1.2); Prothrombin Time 24.8 sec (9.0-12.0)
[2022-05-09] MEDS: WARFARIN 5 MG TAB PO SCH ×2 (10:26→17:34)
--- NOTE | 2022-05-09 13:59 | P.PN ---
Progress Note - Text Progress Note Date: 05/09/22 Hospitalist Interval Note Patient seen and examined at bedside. Vital signs reviewed General: non toxic, no distress, appears at stated age Derm: warm, dry Head: atraumatic, normocephalic, symmetric Eyes: EOMI, no lid lag, anicteric sclera Mouth: no lip lesion, mucus membranes moist Cardiovascular: S1S2 reg, no murmur, positive posterior tibial pulse bilateral, Lungs: Fine crackles at the bases , no accessory muscle use Abdominal: soft, nontender to palpation, no guarding, no appreciable organomegaly Ext: no gross muscle atrophy, trace peripheral edema, no contractures Neuro: CN II-XI grossly intact, no focal neuro deficits Psych: Alert, oriented, appropriate affect Assessment/Plan: Acute hypoxic respiratory failure, worsened with ambulation Possible Community-acquired pneumonia Acute diastolic CHF exacerbation Valvular heart disease with severe aortic stenosis, moderate AR, moderate to severe MR, moderate TR Paroxysmal A. fib -Cardiology consulted -IV diuretics -Pro calcitonin pending, if elevated restart antibiotics This is an update note for patient. There is no charge associated with this note.
[2022-05-09] MEDS ORDERED: BENZOCAINE/MENTHOL LOZENG 1 EACH LOZENGE MUCOUS MEM PRN (16:50)
[2022-05-09] MEDS ORDERED: ATORVASTATIN 40 MG TAB PO SCH (21:00)
[2022-05-10 07:15] VITALS: RESP 18
[2022-05-10] MEDS: LOSARTAN 25 MG TAB PO SCH (08:27)
[2022-05-10] MEDS: METOPROLOL SUCCINATE (ER) 25 MG TAB.ER.24H PO SCH (08:27)
[2022-05-10 08:41] LABS: Prothrombin Time 29.4 sec (9.0-12.0)
--- NOTE | 2022-05-10 08:46 | PN ---
PROGRESS NOTE SUBJECTIVE: Mr. Mehta presented yesterday with congestive heart failure. He has severe aortic stenosis, moderate aortic regurgitation, and also mitral regurgitation, which is moderate with some calcification of valve leaflets. He is doing much better today. PHYSICAL EXAMINATION: LUNGS: Clear. NECK: He has JVD 1 cm. No carotid bruit. HEART: S1, S2 heard normally, ejection systolic murmur with not so well-heard second heart sound. ABDOMEN: Otherwise is unchanged EXTREMITIES: Lower extremities otherwise unchanged. I am recommending that we will switch him from IV to oral Lasix, increase activity and discharge him today with the understanding he should see Dr. Lopes and have a coronary angiography and transesophageal echo to assess the severity of valve disease and look for coronary disease and he should have intervention with valve replacement based on these findings. I discussed my thoughts in detail with the patient and and he can be discharged later on today and see Dr. Lopes as soon as possible in 1 week. MMODL / IJN: [id number] /
[2022-05-10 08:58] LABS: Calcium 8.5 mg/dL (8.4-10.2); Potassium 3.9 mmol/L (3.5-5.1)
[2022-05-10] MEDS ORDERED: FUROSEMIDE 40 MG TAB PO SCH (09:00)
[2022-05-10 11:15] VITALS: BP 107/49; PULSE 70
--- NOTE | 2022-05-10 11:19 | P.DS ---
Providers Date of admission: 05/09/22 11:56 Expected date of discharge: 05/10/22 Attending physician: Radha Caraballo MD Consults: 05/09/22 06:08 Consult Physician Routine Consulting Provider: [facility] Consult Reason/Comments: CHF [place] Do you want consulting provider notified?: Yes, Notify in am Primary care physician: Leanna Mcclure [facility] Course: 71-year-old male patient with past medical history of CVA in 2015, paroxysmal atrial fibrillation on coumadin, valvular heart disease, hypertension, dyslipidemia who presented to the hospital due to increasing shortness of breath when he walks a short distance over the past 2-3 days and getting worse. He has a very rare cough, nonproductive. He complains of a sore throat and wheezing. No fever or chills. He denies concern of increased lower extremity edema as he has had intermittent edema since knee surgery and treats with compression socks which helps. He denies any weight gain. He denies PND, he sleeps with 2 pillows which is normal for him. He denies any blood in his stools or urine. No nausea or vomiting. No diarrhea. No palpitations and no syncopal episodes. EKG sinus rhythm with no acute ST changes, Chest x-ray multifocal airspace opacities concerning for pneumonia. Superimposed congestive heart failure is not excluded. Correlate with serum BNP. WBC 11.0, hemoglobin 8.5. INR 2.9. D- dimer 0.3. Potassium 3.9, BUN 29 and creatinine 1.22. Blood sugar 111. ProBNP 2600. Troponin 0.033. Influenza A, influenza B, RSV, Covid not detected. He was admitted for IV diuresis, was seen by cardiology, echocardiogram 04/09/2022 revealed normal LV size and normal function. Borderline left ventricular hypertrophy. Moderate aortic regurgitation and severe aortic stenosis, moderate to severe mitral regurgitation, moderate tricuspid regurgitation, moderately increased pulmonary artery systolic pressure. Mild pulmonic regurgitation. Breathing improved significantly with diureses. Cardio added 40mg of lasix morning dose to his regimen, he will continue taking 20mg in the evening. He will be discharged in a stable conidtion. He was seen and examined face to face on the day of discharge 05/10 Time for discharge 34 min Patient Condition at Discharge: Stable Plan - Discharge Summary New Discharge Prescriptions: New Furosemide [Lasix] 40 mg PO 0900 30 Days #30 tab Continue Furosemide [Lasix] 20 mg PO DAILY@1300 Metoprolol Succinate (ER) [Toprol XL] 25 mg PO DAILY Ferrous Sulfate [Iron (65 MG Elemental)] 325 mg PO DAILY@1800 Losartan [Cozaar] 25 mg PO DAILY Atorvastatin [Lipitor] 40 mg PO DAILY@1800 Fexofenadine HCl 180 mg PO DAILY Warfarin Sodium 5 mg PO SUTUWETHSA Warfarin Sodium 7.5 mg PO MOFR Discharge Medication List Atorvastatin [Lipitor] 40 mg PO DAILY@1800 02/17/21 [History] Fexofenadine HCl 180 mg PO DAILY 02/17/21 [History] Furosemide [Lasix] 20 mg PO DAILY@1300 02/17/21 [History] Losartan [Cozaar] 25 mg PO DAILY 02/17/21 [History] Metoprolol Succinate (ER) [Toprol XL] 25 mg PO DAILY 02/17/21 [History] Ferrous Sulfate [Iron (65 MG Elemental)] 325 mg PO DAILY@1800 02/27/21 [History] Warfarin Sodium 5 mg PO SUTUWETHSA 05/09/22 [History] Warfarin Sodium 7.5 mg PO MOFR 05/09/22 [History] Furosemide [Lasix] 40 mg PO 0900 30 Days #30 tab 05/10/22 [Rx] Follow up Appointment(s)/Referral(s): Ousmane Lopes MD [STAFF PHYSICIAN] - 1 Week Leanna Arauz DO [Primary Care Provider] - 1-2 days Patient Instructions/Handouts: Heart Failure (DC), Aortic Stenosis (ED)
[2022-05-10] MEDS ORDERED: FUROSEMIDE 20 MG TAB PO SCH (16:00)
[2022-05-10] MEDS ORDERED: WARFARIN 0.5 MG TAB PO ONE (18:00)
[2022-05-11] MEDS ORDERED: WARFARIN 7.5 MG TAB PO SCH (18:00)
== END 2022-05-10 11:15 | disposition home or self-care (01) | DRG 291 ==
LOC: EC 20:12 → 5NMEDONC 05-09 06:09 → 6NMEDSUR 05-09 06:19 → OBSVTOIN 05-09 11:56 → 3SCARD 05-09 13:18
PROVIDERS: ADMIT Internal Medicine; ATTEND Internal Medicine
DX: I11.0 Hypertensive heart disease with heart failure (principal); I50.33 Acute on chronic diastolic (congestive) heart failure; J18.9 Pneumonia, unspecified organism; J96.01 Acute respiratory failure with hypoxia; Q25.6 Stenosis of pulmonary artery; I25.10 Atherosclerotic heart disease of native coronary artery without angina pectoris; J44.0 Chronic obstructive pulmonary disease with (acute) lower respiratory infection; F17.210 Nicotine dependence, cigarettes, uncomplicated; I48.0 Paroxysmal atrial fibrillation; Z20.822 Contact with and (suspected) exposure to COVID-19; M19.90 Unspecified osteoarthritis, unspecified site; E11.9 Type 2 diabetes mellitus without complications; E78.5 Hyperlipidemia, unspecified; F10.20 Alcohol dependence, uncomplicated; I08.3 Combined rheumatic disorders of mitral, aortic and tricuspid valves; Z79.01 Long term (current) use of anticoagulants; Z79.82 Long term (current) use of aspirin; Z79.899 Other long term (current) drug therapy; Z86.73 Personal history of transient ischemic attack (TIA), and cerebral infarction without residual deficits; Z98.42 Cataract extraction status, left eye; Z98.41 Cataract extraction status, right eye; Z96.1 Presence of intraocular lens; Z87.891 Personal history of nicotine dependence
CPT/HCPCS: 36415; 71046; 80048; 80053; 83880; 84145; 84484; 85025; 85379; 85610; 85730; 87636; 93005; 96365; 96366; 96368; 96375; 96376; 99285

== ENCOUNTER → 2022-05-23 | Day surgery (SDC) | payer MEDICARE ==
[~2022-05-23] MED LIST changes: -ACETAMINOPHEN TAB 500 MG TAB PO PRN; +ALPRAZolam 0.25 MG TAB PO PRN; +ALPRAZolam 0.5 MG TAB PO PRN; +ASPIRIN 325 MG TAB PO STA; +ATORVASTATIN 40 MG TAB PO SCH; +BENZOCAINE SPRAY 1 CAN MUCOUS MEM ONE; +FUROSEMIDE 10 MG/ML 4 ML VIAL IV STA; +FUROSEMIDE 20 MG TAB PO SCH; +FUROSEMIDE 40 MG TAB PO SCH; +HEPARIN SODIUM 1,000 UN/ML (10ML VL) IV ONE; +IOPAMIDOL-370 125ML BTL INJ ONE; +IV FLUID CONTINUATION 1,000 ML IV ONE; +LIDOCAINE 1% INJ 10MG/ML (5 ML VIAL-PF) SQ ONE; +LOSARTAN 25 MG TAB PO SCH; -MELOXICAM 7.5 MG TAB PO PRN; +METOPROLOL SUCCINATE (ER) 25 MG TAB.ER.24H PO SCH; +MIDAZOLAM 2 MG/2 ML VIAL IV ONE; -MIDAZOLAM 2 MG/2 ML VIAL IV PRN; +NITROGLYCERIN SL TABS 0.4 MG TAB SUBLINGUAL PRN; +RX INFO: IV CONTRAST WAS GIVEN 1 EACH MISC MISCELLANE PRN; +SODIUM CHLORIDE 0.9% 1,000 ML IV ONE; +SODIUM CHLORIDE 0.9% 1,000 ML IV SCH; +SODIUM CHLORIDE 0.9% 1,000 ML in EMPTY BAG 1 BAG IV SCH; -TRANEXAMIC ACID 1,000 MG in SODIUM CHLORIDE 0.9% 100 ML IVPB PRN; +VERAPAMIL SYRINGE (5 MG/10 ML) INTRAARTER ONE; +WARFARIN 5 MG TAB PO SCH; +fentaNYL (PF) 50 MCG/ML 2 ML AMP IV ONE; +fentaNYL (PF) 50 MCG/ML 2 ML AMP ONE
[2022-05-23 06:35] LABS: Basophils # (A) 0.1 k/uL (0-0.2); Basophils % (A) 1 %; Eosinophils # (A) 0.1 k/uL (0-0.7); Eosinophils % (A) 2 %; HCT 25.7 % (39.0-53.0); HGB 8.7 gm/dL (13.0-17.5); Hypochromasia Slight; Lymphocytes # (A) 1.7 k/uL (1.0-4.8); Lymphocytes % (A) 18 %; MCH 31.6 pg (25.0-35.0); MCHC 33.9 g/dL (31.0-37.0); MCV 93.3 fL (80.0-100.0); Monocytes # (A) 0.6 k/uL (0-1.0); Monocytes % (A) 7 %; Neutrophils # (A) 6.7 k/uL (1.3-7.7); Neutrophils % (A) 72 %; Platelet Count 355 k/uL (150-450); RBC 2.75 m/uL (4.30-5.90); RDW 14.9 % (11.5-15.5); WBC 9.3 k/uL (3.8-10.6)
[2022-05-23 06:42] VITALS: TEMP 97.6
[2022-05-23 07:20] LABS: INR 1.3 (<1.2); Prothrombin Time 13.6 sec (9.0-12.0)
--- NOTE | 2022-05-23 07:38 | P.PCN ---
Date of Procedure: 05/23/22 Description of Procedure: Indication: Evaluation of mitral valve and aortic valve Procedure Description: After explaining the procedure to the patient, it's risk and complications, blood pressure, heart rate and O2 saturation were monitored. The throat was sprayed with Cetacaine. Patient received 3 mg intravenous Versed, 50 mcg intravenous fentanyl. The probe was introduced into the esophagus without difficulty. Images were obtained. Following that, the probe was removed. There was no immediate complication. Findings: Left atrial size is moderately dilated, left atrial appendage is normal. Left ventricular size and systolic function are normal. The aortic valve is bicuspid valve with evidence of calcification, mitral annulus calcification was noted, the tricuspid valve appears to be normal. Descending thoracic aorta revealed mild atherosclerotic changes. No pericardial effusion was noted. Contrast bubble study revealed no shunting across the intra-atrial septum with Valsalva maneuver. Doppler: Pulse wave and color Doppler were obtained, an revealed severe aortic and mitral regurgitation with moderate tricuspid regurgitation. The peak gradient across the aortic valve was 73 mmHg with a mean of 39 mmHg. There was no shunting by color Doppler study. Conclusion: 1. Dilated left atrium with normal appearance of the left atrial appendage 2. Bicuspid aortic valve with severe aortic regurgitation and aortic stenosis 3. Normal left ventricle size and systolic function 4. Severe mitral and moderate tricuspid regurgitation 5. Mild atherosclerotic changes of the descending thoracic aorta.
[2022-05-23 08:43] LABS: O2 Sat Blood Gas 86.1 %
[2022-05-23 08:45] LABS: O2 Sat Blood Gas 51.6 %
[2022-05-23 08:45] LABS: O2 Sat Blood Gas 41.8 %
--- NOTE | 2022-05-23 08:56 | P.CARDCATH ---
Date of Procedure: 05/23/22 Description of Procedure: Cardiac Catheterization: The patient is a 71-year-old male with known history of hypertension, hyperlipidemia, paroxysmal atrial fibrillation with a known history of aortic and mitral valve disease who presented recently with symptoms of CHF. Recommendations were made regarding cardiac catheterization, the risks and the complications were discussed with the patient who is in full understanding and agreement. 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 Using Xylocaine Anesthesia and Seldinger technique, a 6-Andorran sheath was introduced in the right radial artery . The venous access in the right basilic vein was exchanged to a 6-Andorran sheath using the guidewire exchange technique. Right heart catheterization was performed using a Cameron-Richard catheter, multiple samples and pressures were obtained. Cardiac output by thermodilution was calculated. Subsequently, selective coronary angiography was performed using a 5-Andorran 3.5 bend Jen catheter and 4 bend left Jen catheter. Multiple views of the coronary artery including hemiaxial views were obtained. The right Jen catheter was used to cross the aortic valve and LVEDP was calculated. Following that, catheter and sheath were removed. Hemostasis was obtained with deployment of TR band . There was no immediate complication. Patient was returned to room in stable condition. Of note, the patient received a total of 5000 units of intravenous heparin as well as intra-arterial verapamil. Findings: Fluoroscopy: Severe calcification of the aortic valve was noted. Left main: This is a large size vessel, bifurcating LAD and left circumflex, left main has no high-grade stenosis LAD: This is a large size vessel, reaching to the apex without but around the apex segment, the LAD has no high-grade stenosis Left circumflex: This is a large nondominant vessel, giving rise to 2 obtuse marginal branch that had no evidence of high-grade stenosis RCA: This is a large dominant vessel, bifurcating into PDA and PLV, the right coronary artery has no evidence of high-grade stenosis Left Ventriculogram: Not performed Hemodynamics: Pulmonary artery systolic pressure 70, diastolic of 25 with a mean of 45 mmHg, pulmonary Wedge pressure A wave of 34 V wave of 55 with a mean of 30 mmHg, right ventricular systolic pressure 74 with end-diastolic of 18 mmHg, right atrium A wave of 16, V wave of 15 with a mean of 12 mmHg. , LVEDP was 30- 32 mmHg. Mean gradient across the aortic valve 50 limited to mercury. Pulmonary artery saturation 52% right atrial saturation of 42%, arterial saturat ion 86%. Cardiac output by Urmila 6.45 L/m and by thermal 10 L/m. Conclusion: 1. Normal coronary arteries 2. Severe aortic stenosis 3. Severe pulmonary hypertension 4. Elevated LVEDP Recommendations: I have recommended to proceed with evaluation for aortic, mitral and tricuspid valve intervention. The findings and the recommendations were discussed with the patient and the family and they were in full understanding and agreement. Duration of sedation is 32 minutes.
[2022-05-23 13:42] LABS: ALT 16 U/L (4-49); AST 21 U/L (17-59); African American GFR (CKD) 58 (>60 ml/min/1.73 sqM); Albumin 3.6 g/dL (3.5-5.0); Alkaline Phosphatase 73 U/L (38-126); Anion Gap 6 mmol/L; Blood Urea Nitrogen 23 mg/dL (9-20); Calcium 8.3 mg/dL (8.4-10.2); Carbon Dioxide 26 mmol/L (22-30); Chloride 103 mmol/L (98-107); Glucose 156 mg/dL (74-99); Magnesium 1.7 mg/dL (1.6-2.3); Non-African American GFR(CKD) 50 (>60 ml/min/1.73 sqM); Sodium 135 mmol/L (137-145); Total Bilirubin 0.6 mg/dL (0.2-1.3); Total Protein 7.2 g/dL (6.3-8.2)
[2022-05-23 14:01] VITALS: BP 136/61; PULSE 68; RESP 18
[2022-05-23 14:10] LABS: Reticulocyte % 2.8 % (0.5-2.0)
--- NOTE | 2022-05-23 14:18 | CT ---
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 FINDINGS: Exam limited by motion artifact. No obvious acute intracranial hemorrhage or mass effect. No midline shift. Moderate generalized degenerative change with low-attenuation white matter which is nonspecifi c. Area of low attenuation seen in the posterior right parietal lobe is of indeterminate age. Calvarium intact. Changes of chronic sinusitis. IMPRESSION: 1. DEGENERATIVE AND NONSPECIFIC WHITE MATTER CHANGES MOST TYPICAL OF REMOTE ISCHEMIA. 2. THERE IS AN AREA OF LOW ATTENUATION WITHIN THE POSTERIOR RIGHT PARIETAL WHITE MATTER OF INDETERMIN ATE AGE. CONSIDER FOLLOW-UP MRI CLINICALLY WARRANTED.
--- NOTE | 2022-05-23 14:36 | CT ---
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 Automated Exposure Control for Dose Reduction was Utilized. TECHNIQUE: CT scan of the thorax is performed without IV contrast. FINDINGS: LUNGS: There are diffuse bilateral groundglass changes. No sizable pneumothorax. Bilateral small pleu ral effusions. There is interlobular septal thickening compatible with pulmonary fibrosis. Hyperexpan eula compatible with COPD and there is basilar bronchiectasis. No pneumothorax.. MEDIASTINUM: Lack of IV contrast is noted to limit evaluation for mediastinal and especially hilar ad enopathy. There are multiple lymph nodes seen scattered throughout the mediastinum pathologic lymph n ode measuring short axis of 2.1 cm in the pretracheal space.. Coronary artery calcification is seen. Calcification of the aortic valve. The heart is enlarged and no sizable pericardial effusion. The als o is bilateral hilar lymphadenopathy measuring short axis of 1.6 cm. There is 1.5 cm right paratrache al lymph node adjacent to the esophagus measured in short axis OTHER: Trophic and degenerative changes of the spine. There are large cysts cysts seen involving the kidneys, largest measuring 5.6 cm pain coarse calcifications compatible with Bosniak class II cyst. N o mural nodularity. Additional hypodensities are also likely related to simple Bosniak classification 1 cyst. IMPRESSION: 1. Diffuse groundglass changes with underlying COPD and chronic pulmonary fibrosis. Small bilateral e ffusions. Correlate for CHF otherwise consider pneumonia including atypical pneumonia. 2. Nonspecific Hologic mediastinal and hilar lymphadenopathy. Correlate clinically.
[2022-05-23 15:40] LABS: Appearance,Urine Clear (Clear); Bilirubin,Urine Negative (Negative); Blood,Urine Large (Negative); Color,Urine Colorless; Glucose,Urine (UA) Negative (Negative); Ketones,Urine Negative (Negative); Leukocyte Esterase,Urine Negative (Negative); Mucus,Urine Rare /hpf; Nitrite,Urine Negative (Negative); PH, Urine 5.5 (5.0-8.0); Protein,Urine Negative (Negative); RBC,Urine 31 /hpf (0-5); Specific Gravity,Urine 1.012 (1.001-1.035); Urobilinogen,Urine <2.0 mg/dL (<2.0); WBC,Urine 1 /hpf (0-5)
--- NOTE | 2022-05-23 15:50 | P.GSCN ---
History of Present Illness Consult date: 05/23/22 Reason for Consult: Severe aortic valve stenosis and moderate to severe mitral valve regurgitation Requesting physician: Miranda Toscano History of present illness: This is a 71-year-old gentleman who follows on an outpatient basis with Dr. Leanna Arauz for his primary care and with Dr. Lopes for his cardiology care. 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 Recently, the patient has had complaints of progressive shortness of breath and also had a recent hospitalization on 05/08/2022 secondary to shortness of breath. He denies any recent fever, chills, dizziness, lightheadedness, palpitations, headache, hemoptysis, hematemesis, chest pain, presyncope or syncope. He does report some chronic mild edema to his bilateral lower extremities. 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 It also demonstrated extensive patchy pulmonary peripheral infiltrates which could be related to sarcoidosis or chronic interstitial pneumonia according to the CT report. Also in March 2021 the patient was seen by Dr. Perez from pulmonary medicine and underwent a full pulmonary function test which showed an FEV1 84% of predicted value pre-Bronchodilator and 85% of predicted value post bronchodilator and a DLCO of 51% of predicted value. At that time the patient was recommended to undergo a transbronchial biopsy and needle aspirate of the mediastinal lymph nodes once he was recovered from the cellulitis of his right l eg. Due to the patient's known history of aortic valve stenosis the patient underwent a transthoracic 2-D echocardiogram at Dr. Lopes's office on 04/09/2022 which demonstrated a normal left ventricular size and systolic function, an ejection fraction of 55%, moderate to severe mitral valve regurg itation, moderate aortic valve regurgitation, severe aortic valve stenosis with a valve area calculated at 0.79 cm, a peak gradient across aortic valve of 85 mmHg, mean gradient of 51 mmHg, moderate tricuspid valve regurgitation, mild pulmonic valve regurgitation, and moderately increased pulmonary artery systolic pressure of 58 mmHg. Subsequently, due to the patient's recent symptoms of progressive shortness of breath and known history of severe aortic valve stenosis the patient was recommended to undergo a cardiac catheterization and transesophageal echocardiogram which were completed today by Dr. Toscano. The cardiac catheterization demonstrated normal coronary arteries, severe aortic v alve stenosis, severe pulmonary hypertension and elevated left ventricular end- diastolic pressure of 30-32 mmHg. The mean gradient across the aortic valve was 50 mmHg. The transesophageal echocardiogram results showed a bicuspid aortic valve with severe aortic valve regurgitation and aortic valve stenosis with a peak gradient across aortic valve of 73 mmHg with a mean gradient of 39 mmHg, a normal left ventricular size and systolic function, severe mitral valve and moderate tricuspid valve regurgitation and mild atherosclerotic changes of the descending thoracic aorta. The findings of the above-mentioned studies were reviewed with the patient and his by Dr. Toscano and a consult was placed to Dr. Sergei Nuñez from cardiothoracic surgery for further workup and treatment recommendations including cardiac surgery. The patient also has a history of chronic anemia and according to the patient did not follow-up with the anthropology and archeology instructor as scheduled. Review of Systems A 14 point review of systems was completed and was negative except as mentioned in the HPI. Past Medical History Past Medical History: Atrial Fibrillation (Paroxysmal), Blood Disorder (Chronic anemia), Heart Failure (Acute on chronic), CVA/TIA, Hyperlipidemia, Hypertension, Osteoarthritis (OA), Respiratory Disorder (Chronic interstitial lung disease) Additional Past Medical History / Comment(s): CVA 2014-STILL HAS SOME RESIDUAL TINGLING IN FINGERS to his left ring finger and pinky finger History of Any Multi-Drug Resistant Organisms: None Reported Past Surgical History: Joint Replacement, Orthopedic Surgery Additional Past Surgical History / Comment(s): BILAT CATARACTS REMOVED WITH LENS IMPLANTS rt knee replacement,. COLONOSCOPY Past Anesthesia/Blood Transfusion Reactions: No Reported Reaction Past Psychological History: No Psychological Hx Reported Smoking Status: Former smoker (Quit smoking 25 years ago, smoked 1 pack per day at that time) Past Alcohol Use History: None Reported Past Drug Use History: None Reported - Past Family History Mother History Unknown: Yes Father History Unknown: Yes Family Medical History: No Reported History Medications and Allergies Home Medications Medication Instructions Recorded Confirmed Type Atorvastatin [Lipitor] 40 mg PO DAILY@1800 02/17/21 05/23/22 History Fexofenadine HCl 180 mg PO DAILY 02/17/21 05/23/22 History Furosemide [Lasix] 20 mg PO DAILY@1300 02/17/21 05/23/22 History Losartan [Cozaar] 25 mg PO DAILY 02/17/21 05/23/22 History Metoprolol Succinate (ER) [Toprol 25 mg PO DAILY 02/17/21 05/23/22 History XL] Ferrous Sulfate [Iron (65 MG 325 mg PO DAILY@1800 02/27/21 05/23/22 History Elemental)] Warfarin Sodium 5 mg PO SUTUWETHSA 05/09/22 05/23/22 History Warfarin Sodium 7.5 mg PO MOFR 05/09/22 05/23/22 History Furosemide [Lasix] 40 mg PO 0900 30 Days #30 tab 05/10/22 05/23/22 Rx Allergies Allergy/AdvReac Type Severity Reaction Status Date / Time No Known Allergies Allergy Verified 05/18/22 15:16 Surgical - Exam Vital Signs Temp Resp BP Pulse Ox 97.6 F 18 135/64 97 05/23/22 06:40 05/23/22 06:40 05/23/22 06:40 05/23/22 06:40 - General Pale in appearance well developed, well nourished, no distress, no pain, chronically ill, obese - Eyes PERRL, normal ocular movement, no pale, no icteric - ENT normal pinna, normal nares, normal mucosa, no hearing loss, no congestion - Neck Neck is supple, no lymphadenopathy. no masses, trachea midline, no venous distension, no deviated trachea carotid bruit: left (Bruit present to his left carotid) - Respiratory Lung sounds essentially clear to his bilateral upper lobes, few scattered crackles to his bilateral bases. No wheezes or rhonchi. Respirations are symmetrical and nonlabored. Oxygen saturation are 95% on 5 L nasal cannula. - Cardiovascular Regular rhythm and rate. S1 and S2 present, negative for S3 or gallop. Systolic murmur present heard best to his right sternal border. +1 edema to his bilateral lower extremities. - Abdomen Abdomen is soft, nontender and nondistended. Active bowel sounds present in all 4 quadrants. No guarding or rigidity. No organomegaly appreciated. - Genitourinary Deferred - Rectum Deferred - Integumentary Slight erythema to his bilateral lower extremities. Skin is warm and dry. No clubbing or cyanosis is present. no rash, no growths - Neurologic No focal deficits - Musculoskeletal Moves all 4 extremities with equal strength bilaterally. normal gait - Psychiatric oriented to time, oriented to person, oriented to place, speech is normal, memory intact Results - Labs 05/23/22 06:25 05/23/22 13:09 Abnormal Lab Results - Last 24 Hours (Table) 05/23/22 05/23/22 05/23/22 Range/Units 06:25 06:55 13:09 RBC 2.75 L (4.30-5.90) m/uL Hgb 8.7 L (13.0-17.5) gm/dL Hct 25.7 L (39.0-53.0) % Retic Count 2.8 H (0.5-2.0) % PT 13.6 H (9.0-12.0) sec INR 1.3 H (<1.2) Sodium (137-145) mmol/L BUN (9-20) mg/dL Creatinine (0.66-1.25) mg/dL Glucose (74-99) mg/dL Calcium (8.4-10.2) mg/dL Lactate Dehydrogenase (313-618) U/L 05/23/22 05/23/22 Range/Units 13:09 13:09 RBC (4.30-5.90) m/uL Hgb (13.0-17.5) gm/dL Hct (39.0-53.0) % Retic Count (0.5-2.0) % PT (9.0-12.0) sec INR (<1.2) Sodium 135 L (137-145) mmol/L BUN 23 H (9-20) mg/dL Creatinine 1.42 H (0.66-1.25) mg/dL Glucose 156 H (74-99) mg/dL Calcium 8.3 L (8.4-10.2) mg/dL Lactate Dehydrogenase 621 H (313-618) U/L Diabetes panel 05/23/22 Range/Units 13:09 Sodium 135 L (137-145) mmol/L Potassium 4.0 (3.5-5.1) mmol/L Chloride 103 (98-107) mmol/L Carbon Dioxide 26 (22-30) mmol/L BUN 23 H (9-20) mg/dL Creatinine 1.42 H (0.66-1.25) mg/dL Glucose 156 H (74-99) mg/dL Calcium 8.3 L (8.4-10.2) mg/dL AST 21 (17-59) U/L ALT 16 (4-49) U/L Alkaline Phosphatase 73 (38-126) U/L Total Protein 7.2 (6.3-8.2) g/dL Albumin 3.6 (3.5-5.0) g/dL Thyroid panel 05/23/22 Range/Units 13:09 TSH 1.330 (0.465-4.680) mIU/L Calcium panel 05/23/22 Range/Units 13:09 Calcium 8.3 L (8.4-10.2) mg/dL Albumin 3.6 (3.5-5.0) g/dL Pituitary panel 05/23/22 Range/Units 13:09 Sodium 135 L (137-145) mmol/L Potassium 4.0 (3.5-5.1) mmol/L Chloride 103 (98-107) mmol/L Carbon Dioxide 26 (22-30) mmol/L BUN 23 H (9-20) mg/dL Creatinine 1.42 H (0.66-1.25) mg/dL Glucose 156 H (74-99) mg/dL Calcium 8.3 L (8.4-10.2) mg/dL TSH 1.330 (0.465-4.680) mIU/L Adrenal panel 05/23/22 Range/Units 13:09 Sodium 135 L (137-145) mmol/L Potassium 4.0 (3.5-5.1) mmol/L Chloride 103 (98-107) mmol/L Carbon Dioxide 26 (22-30) mmol/L BUN 23 H (9-20) mg/dL Creatinine 1.42 H (0.66-1.25) mg/dL Glucose 156 H (74-99) mg/dL Calcium 8.3 L (8.4-10.2) mg/dL Total Bilirubin 0.6 (0.2-1.3) mg/dL AST 21 (17-59) U/L ALT 16 (4-49) U/L Alkaline Phosphatase 73 (38-126) U/L Total Protein 7.2 (6.3-8.2) g/dL Albumin 3.6 (3.5-5.0) g/dL - Imaging Chest x-ray: report reviewed, image reviewed CT scan - chest: report reviewed, image reviewed Assessment and Plan Assessment: 1. Bicuspid aortic valve with severe aortic valve regurgitation and aortic valve stenosis 2. Severe mitral and moderate tricuspid valve regurgitation 3. Normal left ventricular size and systolic function 4. Dyspnea on exertion, possibly secondary to above 5. Acute on chronic congestive heart failure 6. Paroxysmal atrial fibrillation, on Coumadin for anticoagulation as an outpatient 7. Chronic anemia 8. Hypertension 9. Hyperlipidemia 10. Chronic interstitial lung disease 11. History of hilar and mediastinal lymphadenopathy 12. Obesity with a BMI of 33.2 kg/m 13. Osteoarthritis 14. History of cellulitis to his right lower extremity 15. Remote history of nicotine dependence, quit smoking 25 years ago Plan: The patient was seen and examined with his present at his bedside in the extended stay unit. He was seen and examined by Dr. Sergei Nuñez from cardiothoracic surgery. His chart and diagnostics were reviewed. Dr. Nuñez discussed with the patient and his present at his bedside the findings on the cardiac catheterization and transesophageal echocardiogram results. Treatment options discussed with the patient/ including surgical aortic valve replacement, mitral valve repair and tricuspid valve repair versus TAVR. Due to the patient's history of anemia and chronic interstitial lung disease he has been referred to Dr. Perez from pulmonary/critical care and Dr. Graf his anthropology and archeology instructor for further preoperative workup and clearance. Before any valve procedure can be completed he will need to obtain dental clearance and has been given a form for dental clearance to give to his dentist. Dr. Nuñez entered the patient and his 's questions to the best of his ability. Once his preoperative workup has been completed an STS risk score will be calculated in discussed with the patient. He will follow-up in the office with Dr. Nuñez on 06/08/2022 as scheduled and discussed with the patient. A 5 m walk test was completed with the patient with time 1: 3.74 seconds, Time 2: 3.29 seconds, And time 3: 2.63 seconds. Medical management and other comorbidities per primary care service. Due to the patient's history of CVA and chronic interstitial lung disease with history of hilar and mediastinal Neuropathy we will obtain a baseline CT scan of his brain and of the patient's chest without contrast. A full pulmonary function test will be completed on 05/28/[address] Perez's office. More recommendations to follow based on patient's clinical course. Thank you Dr. Toscano for this consult and we look for to working with you in the care of this patient. I have personally seen and examined the patient, performed the documentation and the assessment and plan as written. 30 minutes spent on the visit . Jeffry REDMOND
--- NOTE | 2022-05-23 16:44 | US ---
EXAMINATION TYPE: US carotid duplex BILAT DATE OF EXAM: 05/23/2022 COMPARISON: NONE CLINICAL HISTORY: Pre-Op Cardiac Surgery. TECHNIQUE: Carotid duplex ultrasound examination. Indirect Doppler criteria was utilized. FINDINGS: EXAM MEASUREMENTS: RIGHT: Peak Systolic Velocity (PSV) cm/sec ----- Right CCA: 108 ----- Right ICA: 96.9 ----- Right ECA: 77.6 ICA/CCA ratio: 0.90 RIGHT: End Diastole cm/sec ----- Right CCA: 9.1 ----- Right ICA: 6.3 ----- Right ECA: 6.3 LEFT: Peak Systolic Velocity (PSV) cm/sec ----- Left CCA: 102 ----- Left ICA: 101 ----- Left ECA: 104 ICA/CCA ratio: 0.99 LEFT: End Diastole cm/sec ----- Left CCA: 00.00 ----- Left ICA: 15.3 ----- Left ECA: 00.00 VERTEBRALS (direction of flow): Right Vertebral: Antegrade Left Vertebral: Antegrade Rhythm: GLOBAL PRODUCT MANAGER NOTES: No significant stenosis seen IMPRESSION: Less than 50% stenosis of the bilateral carotid bifurcations. Criteria for Assigning % of Stenosis / Diameter reduction (Estimation based on the indirect measurements of the internal carotid artery velocities (ICA PSV). 1. Normal (no stenosis)=ICA PSV < 125 cm/s: ratio < 2.0: ICA EDV<40 cm/s. 2. Less than 50% stenosis=ICA PSV < 125 cm/s: ratio < 2.0: ICA EDV<40 cm/s. 3. 50 to 69% stenosis=ICA PSV of 125 to 230 cm/s: ration 2.0 ? 4.0: ICA EDV 40-100 cm/s. 4. Greater than 70% stenosis to near occlusion= ICA PSV > 230 cm/s: ratio > 4.0: ICA EDV > 100 cm/s. 5. Near occlusion= ICA PSV velocities may be low or undetectable: variable ratio and ICA EDV. 6. Total occlusion=unable to detect flow.
[2022-05-23 21:11] LABS: Hepatitis A Antibody IgM Nonreactive (Nonreactive); Hepatitis B Core IgM Nonreactive (Nonreactive); Hepatitis B Surface Antigen Nonreactive (Nonreactive); Hepatitis C IgG Antibody Nonreactive (Nonreactive)
[2022-05-24 00:35] LABS: Chol/HDL Ratio 2.29 Ratio; LDL Cholesterol,Calculated 46.8 mg/dL (0.0-131.0); VLDL Calculation 16.76 mg/dL (5.00-40.00)
[2022-05-24 00:55] LABS: % Iron Saturation 28.67 (15.00-50.00)
--- NOTE | 2022-05-24 06:39 | US ---
EXAMINATION TYPE: US arterial LE multi level DATE OF EXAM: 05/23/2022 3:24 PM CLINICAL HISTORY: History of hypertension and hyperlipidemia along with current tobacco use and CVA/T IA . Preoperative study. History of: Smoker: Yes Hypertension: Yes Diabetic: No Hyperlipidemia: Yes TIA/CVA: Yes Previous Vascular Surgery: No CAD: Yes [place]: No Vascular Ulcers: No Comparison: CT urogram April 26, 2021 Doppler Waveforms: Right: Multiphasic Left: Multiphasic Right Brachial Pressure: 118 Left Brachial Pressure: 125 Ankle-Brachial Indices: Right: 1.65 Left: 1.66 Toe Brachial Indices: Right: 1.09 Left: 1.1 IMPRESSION: Abnormal elevated bilateral BRYANT values consistent with significant calcified vessel, adv ise vascular surgical referral.
[2022-05-24 08:56] LABS: Free Kappa Lt Chain Qnt, Serum 8.34 mg/dL (0.33-1.94); Free Lambda Lt Chain Qnt, Seru 4.81 mg/dL (0.57-2.63)
[2022-05-25 06:45] LABS: Methylmalonic Acid 0.27 umol/L (<0.40)
== END | disposition home or self-care (01) ==
LOC: CATHCVL 05:47
PROVIDERS: ATTEND Internal Medicine Interventional Cardiology
DX: I25.10 Atherosclerotic heart disease of native coronary artery without angina pectoris (principal); I08.1 Rheumatic disorders of both mitral and tricuspid valves; E78.5 Hyperlipidemia, unspecified; I11.0 Hypertensive heart disease with heart failure; I50.9 Heart failure, unspecified; M19.90 Unspecified osteoarthritis, unspecified site; I48.0 Paroxysmal atrial fibrillation; J84.10 Pulmonary fibrosis, unspecified; Z86.73 Personal history of transient ischemic attack (TIA), and cerebral infarction without residual deficits; Z98.890 Other specified postprocedural states; Z98.41 Cataract extraction status, right eye; Z98.42 Cataract extraction status, left eye; Z87.891 Personal history of nicotine dependence; Z79.899 Other long term (current) drug therapy
CPT/HCPCS: 93312; 93320; 93325; 93460; 83921; 82747; 80061; 80053; 80074; 85018; 84443; 82607; 82728; 82810; 83540; 83550; 83615; 83735; 85025; 85610; 85045; 85730; 81001; 84165; 83010; 87070; 86334; 83883; 83036; 93922; 93880; 70450; 71250; C1769 ×3; C1894; C1751; J2250; J1940; J2001; J3010; J1644; Q9967

== ENCOUNTER 2022-06-01 06:21 | Day surgery (SDC) | payer MEDICARE ==
[2022-05-29 12:55] VITALS: BMI 32.5
[~2022-06-01 06:21] MED LIST changes: -ALPRAZolam 0.25 MG TAB PO PRN; -ALPRAZolam 0.5 MG TAB PO PRN; -ASPIRIN 325 MG TAB PO STA; -ATORVASTATIN 40 MG TAB PO SCH; -BENZOCAINE SPRAY 1 CAN MUCOUS MEM ONE; -FUROSEMIDE 10 MG/ML 4 ML VIAL IV STA; -FUROSEMIDE 20 MG TAB PO SCH; -FUROSEMIDE 40 MG TAB PO SCH; -HEPARIN SODIUM 1,000 UN/ML (10ML VL) IV ONE; -IOPAMIDOL-370 125ML BTL INJ ONE; -IV FLUID CONTINUATION 1,000 ML IV ONE; +LACTATED RINGERS 1,000 ML IV SCH; -LIDOCAINE 1% INJ 10MG/ML (5 ML VIAL-PF) SQ ONE; -LOSARTAN 25 MG TAB PO SCH; -METOPROLOL SUCCINATE (ER) 25 MG TAB.ER.24H PO SCH; -MIDAZOLAM 2 MG/2 ML VIAL IV ONE; -NITROGLYCERIN SL TABS 0.4 MG TAB SUBLINGUAL PRN; -RX INFO: IV CONTRAST WAS GIVEN 1 EACH MISC MISCELLANE PRN; -SODIUM CHLORIDE 0.9% 1,000 ML IV ONE; -SODIUM CHLORIDE 0.9% 1,000 ML IV SCH; -SODIUM CHLORIDE 0.9% 1,000 ML in EMPTY BAG 1 BAG IV SCH; -VERAPAMIL SYRINGE (5 MG/10 ML) INTRAARTER ONE; -WARFARIN 5 MG TAB PO SCH; -fentaNYL (PF) 50 MCG/ML 2 ML AMP IV ONE; -fentaNYL (PF) 50 MCG/ML 2 ML AMP ONE
[2022-06-01] MEDS ORDERED: LACTATED RINGERS 1,000 ML IV SCH (06:44)
[2022-06-01] MEDS ORDERED: LIDOCAINE 2% INJ 20 MG/ML (2 ML VIAL) ONE (07:46)
[2022-06-01] MEDS ORDERED: NEOSTIGMINE 1 MG/ML 10 ML VIAL ONE (07:46)
[2022-06-01] MEDS ORDERED: KETAMINE 10 MG/ML 20 ML VIAL ONE (07:46)
[2022-06-01] MEDS ORDERED: ETOMIDATE 2 MG/ML 10 ML VIAL ONE (07:46)
[2022-06-01] MEDS ORDERED: ROCURONIUM 10 MG/ML (5 ML VIAL) IV ONE (07:46)
[2022-06-01] MEDS ORDERED: PHENYLEPHRINE-0.9% NACL SYG 1,000 MCG/10 ML SYRINGE ONE (07:46)
[2022-06-01] MEDS ORDERED: MIDAZOLAM 2 MG/2 ML VIAL ONE (07:46)
[2022-06-01] MEDS ORDERED: SUCCINYLCHOLINE CHLORIDE 200 MG/10 ML VIAL IV ONE (07:46)
[2022-06-01] MEDS ORDERED: GLYCOPYRROLATE 0.2 MG/ML 2 ML VIAL ONE (07:46)
[2022-06-01] MEDS ORDERED: fentaNYL (PF) 50 MCG/ML 2 ML AMP ONE (07:46)
--- NOTE | 2022-06-01 08:43 | P.PCN ---
Date of Procedure: 06/01/22 Preoperative Diagnosis: ILD, mediastinal lymphadenopathy Postoperative Diagnosis: ILD, mediastinal lymphadenopathy Operative Findings: Preoperative Diagnosis: 1 ILD 2 mediastinal lymphadenopathy Postoperative Diagnosis: 1 ILD 2 mediastinal lymphadenopathy Procedure(s) Performed: 1 flexible bronchoscopy, airway inspection, transbronchial biopsies of the right lung, bronchioloalveolar lavage of the lingula 2 endoscopic ultrasound (EBUS) 3 transbronchial needle aspirate of station 4R and station 7 lymph nodes and station 11 R lymph node Surgeon: Vito Perez Chief Investment Officer #1: Nava Watson Estimated Blood Loss (ml): 0 Pathology: other Condition: stable Disposition: same day Operative Findings: After obtaining the consent the patient was taken to the OR suite he was intubated and put on MV by anesthesia then the scope was advanced to the ET tube until the Trachea was seen and it was normal and then the oscar appears normal then the scope advanced to the left main and EDVIN LB1-LB3 were seen and no endobronchial lesions were seen then the scope advanced to the lingula and the LB4 and LB5 were seen and no endobronchial lesions were seen the scope retracted and advanced to the left lower lobes LB6 to LB12 were seen one by one and no endobronchial lesions, then the scope was retracted back to the oscar and advanced to the Right main and RUL RB1 and RB2 and RB3 were seen one by one and no endobronchial lesions were seen the scope then retracted and advanced to the BI and RML RB4 and RB5 were seen and no endobronchial lesions were seen then it was retracted and advanced to the RLL RB6 to RB12 were seen one by one and no endobronchial lesions. After completing and airway inspection, the flexible bronchoscope was directed to the lingula. The severe segment of the lingula was wedged. The bronchial alveolar lavage was done. A total of DVT the fluid was infused in approximately 30 mL of aspirate was obtained without any major difficulties. Subsequently, the bronchoscope was normal to the right side and under fluoroscopic guidance, transbronchial biopsies of the right lower lobe lateral and anterior segment wasn't done. Also transbronchial biopsies of the right upper lobe anterior segment was done. No endobronchial bleeding. The biopsy was completed without any major complications. Following that, the flexible bronchoscope was removed and the endobronchial ultrasound was inserted. Then EBUS was used and the lymph nodes were examined. Direct measurement of the mediastinal lymph nodes revealed a a 12 x 16 mm 4R lymph node, 10 x 10 mm 10 R lymph node, 15 x 13 mm 11 Rs lymph node and 18 x 16 mm station 7 lymph node, and 11 x 10 mm station 4L lymph node. Endobronchial ultrasound was completed and the mediastinal lymph nodes were identified. Following that, I performed transbronchial needle aspirate of station 7 lymph nodes. The samples were sent for cell block and flow cytometric evaluation for possible lymphoma. A total of 5 passes were obtained. Subsequently, I performed transbronchial needle aspirate of station 11 R lymph node with a total of 3 passes. Laboratory biopsies were completed without any complication. No bleeding encountered. Bronchoscope was removed and the patient was transferred to recovery in stable condition. Chest x-rays to follow. m
[2022-06-01 08:59] VITALS: TEMP 98.2
--- NOTE | 2022-06-01 09:26 | XR ---
EXAMINATION TYPE: XR chest 1V DATE OF EXAM: 06/01/2022 COMPARISON: 05/08/2022 HISTORY: 71-year-old male post biopsy TECHNIQUE: Single frontal view of the chest is obtained. FINDINGS: Heart mildly enlarged. Patchy and confluent peripheral interstitial densities are present throughout, right greater than left. Relatively similar to prior exam. No appreciable pneumothorax. IMPRESSION: Similar diffuse interstitial change with patchy and confluent airspace disease right greater than lef t. Possible component of underlying fibrosis.
--- NOTE | 2022-06-01 09:27 | FL ---
EXAMINATION TYPE: FL bronchoscopy DATE OF EXAM: 06/01/2022 FLUOROSCOPY Fluoroscopy time of 19 seconds was used during bronchoscopy for ILD or sarcoidosis. 6 image/s docume nt/s the procedure.
[2022-06-01 09:40] VITALS: RESP 20
[2022-06-01 09:55] VITALS: BP 133/70; PULSE 69
[2022-06-01 21:09] LABS: Appearance,BF Blood Tinged
== END 2022-06-01 10:04 | disposition home or self-care (01) ==
LOC: ORWHC2ENDO 06:21
PROVIDERS: ATTEND Internal Medicine Critical Care Medicine
DX: J84.9 Interstitial pulmonary disease, unspecified (principal); I11.0 Hypertensive heart disease with heart failure; I50.9 Heart failure, unspecified; I48.91 Unspecified atrial fibrillation; F41.9 Anxiety disorder, unspecified; Z87.891 Personal history of nicotine dependence; Z86.73 Personal history of transient ischemic attack (TIA), and cerebral infarction without residual deficits; Z79.899 Other long term (current) drug therapy; Z96.659 Presence of unspecified artificial knee joint
CPT/HCPCS: 31629; 88108; 88305; 88184; 88185; 89050; 87252; 87070; 87205; 87116; 87102; 87206; 71045; 31628; 31624; 31652; J2250; J0330; J2710; J3010; J2370; J2001